=== PATIENT | male | born 1955 | race American Indian/Alaskan Native ===

== ENCOUNTER 2016-09-21 22:48 | Inpatient (IN) | payer MEDICARE ==
[2016-09-22 00:05] LABS: Basophils % (Auto) 0.3 % (0.0-1.8); Hemoglobin 11.6 gm/dl (11.8-15.2); Mean Corpuscular HGB Conc 32 % (32-34); Mean Corpuscular Hemoglobin 30 pg (28-32); Mean Corpuscular Volume 92 fl (84-94); Platelet Count 302 K/mm3 (140-440); Red Blood Count 3.92 M/mm3 (3.65-5.03); White Blood Count 7.5 K/mm3 (4.5-11.0)
[2016-09-22 00:25] LABS: BUN/Creatinine Ratio 8.85; Blood Urea Nitrogen 54 mg/dL (9-20); Calcium 8.7 mg/dL (8.4-10.2); Carbon Dioxide 26 mmol/L (22-30); Chloride 92.4 mmol/L (98-107); Glucose 185 mg/dL (75-100); Potassium 3.8 mmol/L (3.6-5.0); Sodium 133 mmol/L (137-145)
[2016-09-22 00:28] LABS: Anion Gap 18 mmol/L
[2016-09-22] MEDS ORDERED: APRESOLINE IM ONE (09:10)
--- NOTE | 2016-09-22 09:14 | Emergency Department Report ---
HPI - General Chief Complaint: Chest Pain Time Seen by Provider: 09/22/16 09:03 - HPI HPI: This is a 61-year-old male who presents to the emergency department via EMS from home with complaint of a headache and some right shoulder pain/ chest pain. Patient says that 2 days ago he started having some cold-like symptoms with a sore throat and some congestion but that seemed to improve. Wednesday, yesterday, he went to his normal dialysis session but had to stop early secondary to a bad headache. It is a frontal headache and was 10 out of 10 in intensity at that time but it does come down to 3 out of 10 without any intervention. He says that he has a history of these headaches and has seen a neurologist in the past but "they could not find anything." He also been having some intermittent pain that starts in the right arm and shoulder and then sometimes radiates into the chest. He does not have any chest pain currently. He denies any history of ME, CVA, PE/DVT. He has a history of end- stage renal disease on dialysis, CHF, insulin dependent diabetes and hypertension. His primary care doctor is 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 No recent travel or sick contacts at home. ED Past Medical Hx - Past Medical History Hx Hypertension: Yes Hx Congestive Heart Failure: Yes Hx Diabetes: Yes Hx Deep Vein Thrombosis: Yes Hx Renal Disease: Yes (ckd) Hx Asthma: No Hx COPD: No Hx HIV: No - Surgical History Past Surgical History?: Yes Additional Surgical History: Cataract surgery - Social History Smoking Status: Never Smoker Substance Use Type: None - Medications Home Medications: Home Medications Medication Instructions Recorded Confirmed Last Taken Type Hydralazine HCl [hydrALAZINE] 100 mg PO TID 09/10/13 09/22/16 12/16/13 History Metoprolol [Lopressor TAB] 50 mg PO BID #60 mg 09/13/13 09/22/16 12/16/13 Rx Aspirin [Aspirin BABY CHEW TAB] 81 mg PO QDAY #30 tab.chew 11/06/13 09/22/1605/22 Rx Lisinopril [Zestril TAB] 40 mg PO QDAY #30 11/06/13 09/22/16 12/16/13 Rx Methyldopa [Aldomet] 500 mg PO Q12HR #60 tablet 11/06/13 09/22/16 12/16/13 Rx NIFEdipine XL [Procardia Xl] 90 mg PO QDAY #30 tablet 11/06/13 09/22/16 Rx glipiZIDE [Glucotrol] 5 mg PO DAILY 12/16/13 09/22/16 12/16/13 History Furosemide [Lasix] 40 mg PO DAILY #30 tablet 12/22/13 09/22/16 Unknown Rx ED Review of Systems ROS: Stated complaint: CHEST PAIN, HEADACHE Other details as noted in HPI Comment: All other systems reviewed and negative Constitutional: denies: chills, fever Eyes: denies: eye pain, eye discharge, vision change ENT: throat pain, congestion. denies: ear pain Respiratory: denies: cough, shortness of breath, wheezing Cardiovascular: chest pain. denies: palpitations Gastrointestinal: denies: abdominal pain, nausea, diarrhea Genitourinary: denies: urgency, dysuria Musculoskeletal: arthralgia. denies: back pain Skin: denies: rash, lesions Neurological: denies: headache, weakness, paresthesias Physical Exam - Physical Exam Vital Signs: Vital Signs 09/21/16 23:22 Temperature 98.6 F Pulse Rate 61 Respiratory 16 Rate Blood Pressure 159/81 O2 Sat by Pulse 95 Oximetry Physical Exam: GENERAL: The patient is well-developed well-nourished. HEENT: Normocephalic. Atraumatic. Extraocular motions are intact. Patient has moist mucous membranes. Pupils equal reactive to light bilaterally. No nystagmus. NECK: Supple. Trachea is midline. CHEST/LUNGS: Clear to auscultation. There is no respiratory distress noted. HEART/CARDIOVASCULAR: Regular. There is no tachycardia. There is no gallop rub or murmur. ABDOMEN: Abdomen is soft, nontender. Patient has normal bowel sounds. There is no abdominal distention. SKIN: There is no rash. There is no edema. There is no diaphoresis. NEURO: The patient is awake, alert, and oriented. The patient is cooperative. The patient has no focal neurologic deficits. The patient has normal speech. Cranial nerves II through XII grossly intact. No pronator drift. No dysmetria. MUSCULOSKELETAL: There is no tenderness or deformity. There is no limitation range of motion. There is no evidence of acute injury. Muscle strength 5 out of 5 upper and lower extremities bilaterally. ED Course Vital Signs 09/21/16 23:22 Temperature 98.6 F Pulse Rate 61 Respiratory 16 Rate Blood Pressure 159/81 O2 Sat by Pulse 95 Oximetry ED Medical Decision Making - Lab Data Result diagrams: 09/21/16 23:40 09/21/16 23:40 - EKG Data -: EKG Interpreted by Me EKG shows normal: sinus rhythm, axis (LAD), intervals, QRS complexes (left anterior fascicular block, LVH), ST-T waves (nonspecific ST-T changes) Rate: normal - EKG Data When compared to previous EKG there are: no significant change Interpretation: unchanged when compared t (04/02/16) - Radiology Data Radiology results: image reviewed interpreted by me: Chest x-ray did not show any acute process. Heart is normal shape and size. No effusions. No pneumothorax. No signs of pneumonia seen. - Medical Decision Making 61-year-old male presents to the emergency department with complaint of right- sided chest pain and a headache since dialysis yesterday. The headache is greatly improved without any intervention the patient says he has previous histories of CT scans and MRIs of the brain and has seen neurology for the same kind of headache. For this reason no CT of the brain was done at this time. EKG was done that did not show any signs of ST elevation ME. Patient has negative troponins 2 this far. He has chronic kidney disease and therefore has some renal insufficiency on labs but there is no hyperkalemia. Patient continues to have hypertensive issues however, despite 20 mg of hydralazine thus far. He also has intermittent right-sided chest pain. He has not had a stress test previously. For these reasons patient will be admitted to the hospital for further evaluations and has been accepted for admission by the hospitalist, Dr. Maria. - Differential Diagnosis ME, costochondritis, tension headache, brain bleed Critical Care Time: No Critical care attestation.: If time is entered above; I have spent that time in minutes in the direct care of this critically ill patient, excluding procedure time. ED Disposition Clinical Impression: Anemia in chronic kidney disease (CKD), Hyperglycemia, Hypertensive urgency Chest pain Qualifiers: Chest pain type: unspecified Qualified Code(s): R07.9 - Chest pain, unspecified Chronic kidney disease (CKD), hemodialysis preferred modality Qualifiers: Chronic kidney disease stage: stage 5 Qualified Code(s): N18.5 - Chronic kidney disease, stage 5; Z99.2 - Dependence on renal dialysis Disposition: OP ADMITTED IP TO THIS HOSP Is pt being admited?: Yes Does the pt Need Aspirin: Yes Condition: Stable Instructions: Chest Pain (ED) Referrals: PRIMARY CARE, [Primary Care Provider] - 3-5 Days Time of Disposition: 11:40
--- NOTE | 2016-09-22 09:32 | XRay Report ---
Single view chest: Compared to 04/02/16. History: Chest pain. Findings: Cardiomegaly the trachea is midline. No consolidation, pneumothorax or pleural effusion. Impression: No acute cardiopulmonary findings.
[2016-09-22] MEDS ORDERED: APRESOLINE IV ONE ×2 (09:45)
[2016-09-22] MEDS ORDERED: BABY ASPIRIN PO ONE (11:40)
--- NOTE | 2016-09-22 12:18 | Admit Criteria Form ---
Admission Criteria Documentation: HYPERTENSION Clinical Indications for Admission to Inpatient Care ( Place "X" for any and all applicable criteria): Admission is indicated for ANY ONE of the following(1)(2)(3)(4): [ ]I. Hypertensive emergency, with evidence of acute and progressing target organ disease as indicated by ANY ONE of the following: [ ]a) Hypertensive encephalopathy (eg, confusion, altered mental status) [ ]b) Cerebral infarction [ ]c) Intracranial hemorrhage [ ]d) Myocardial ischemia or infarction [ ]e) Pulmonary edema [ ]f) Aortic dissection [ ]g) Seizure [ ]h) Acute renal insufficiency [ ]i) Papilledema [ ]j) Microangiopathic hemolytic anemia [ ]II. Adrenergic crisis (eg, severe hypertension due to pheochromocytoma crisis, cocaine or amphetamine intoxication, or clonidine withdrawal) [X ]III. Severe hypertension (SBP greater than 180 mmHg or DBP greater than 110 mmHg or greater than the 95th percentile for age, gender, and height in pediatric patients) that cannot be controlled (eg, to SBP less than 160 mmHg and DBP less than 100 mmHg in adults) by treatment with oral medication in emergency department or observation care Extended stay beyond goal length of stay may be needed for(11)(12)(13): [ ]a) Persistent hypertensive encephalopathy [ ]b) Continuation of pulmonary edema [ ]c) Recurring or persistent severe hypertension [ ]d) Target organ damage (eg, angina, stroke, aortic dissection) [ ]e) Associated renal insufficiency The original [employer] content created by [employer] has been revised. The portions of the content which have been revised are identified through the use of italic text or in bold, and [facility] has neither reviewed nor approved the modified material. All other unmodified content is copyright [employer] includes the [facility]. Please see references footnoted in the original [employer] the [facility] edition 2016 Admission Criteria Met: Yes
[2016-09-22] MEDS ORDERED: ZESTRIL PO SCH (14:00)
[2016-09-22] MEDS ORDERED: LASIX PO SCH (14:00)
[2016-09-22] MEDS ORDERED: HEPARIN SUB-Q SCH (14:00)
[2016-09-22] MEDS ORDERED: PROCARDIA XL PO SCH (14:00)
[2016-09-22] MEDS ORDERED: GLUCOTROL PO SCH (14:00)
[2016-09-22] MEDS ORDERED: APRESOLINE PO SCH (14:00)
[2016-09-22] MEDS ORDERED: ZESTRIL ONE (14:17)
[2016-09-22] MEDS ORDERED: LASIX ONE (14:17)
[2016-09-22 17:59] VITALS: BP 177/82
[2016-09-22] MEDS ORDERED: LOPRESSOR PO SCH ×2 (22:00)
== END 2016-09-22 17:59 | disposition left against medical advice (07) | DRG 313 ==
LOC: ED 22:48 → 4A 09-22 11:40
PROVIDERS: ADMIT Internal Medicine; ATTEND Internal Medicine
DX: R07.9 Chest pain, unspecified (principal); I13.2 Hypertensive heart and chronic kidney disease with heart failure and with stage 5 chronic kidney disease, or end stage renal disease; N18.5 Chronic kidney disease, stage 5; I16.0 Hypertensive urgency; R51 Headache; I50.9 Heart failure, unspecified; D63.1 Anemia in chronic kidney disease; R73.9 Hyperglycemia, unspecified; Z99.2 Dependence on renal dialysis; Z88.0 Allergy status to penicillin; Z86.718 Personal history of other venous thrombosis and embolism; Z98.49 Cataract extraction status, unspecified eye; Z53.21 Procedure and treatment not carried out due to patient leaving prior to being seen by health care provider
CPT/HCPCS: 36415; 71010; 80048; 84484; 85025; 93005; 93010; 96372; 96374; 96376; J0360; J1644

== ENCOUNTER 2017-06-23 09:57 | Inpatient (IN) | payer MEDICARE ==
[2017-06-23 11:26] LABS: Basophils % (Auto) 0.5 % (0.0-1.8); Eosinophils % (Auto) 3.5 % (0.0-4.3); Hematocrit 35.6 % (35.5-45.6); Hemoglobin 11.4 gm/dl (11.8-15.2); Mean Corpuscular HGB Conc 32 % (32-34); Mean Corpuscular Hemoglobin 29 pg (28-32); Mean Corpuscular Volume 91 fl (84-94); Platelet Count 182 K/mm3 (140-440); Red Cell Distribution Width 16.5 % (13.2-15.2); White Blood Count 8.4 K/mm3 (4.5-11.0)
[2017-06-23 11:43] LABS: Calcium 8.6 mg/dL (8.4-10.2); Chloride 99.5 mmol/L (98-107); Potassium 3.5 mmol/L (3.6-5.0)
--- NOTE | 2017-06-23 12:12 | Emergency Department Report ---
ED Headache HPI - General Chief Complaint: Headache Stated Complaint: N/V,HEADACHE Time Seen by Provider: 06/23/17 12:08 - History of Present Illness Initial Comments: The patient complains of a diffuse and moderately severe headache associated with nausea that occurred while on dialysis. He states he's had similar such headaches before. Apparently he's been admitted to [facility] on more than one occasion with headaches and uncontrolled hypertension. He states he thinks his last CT was 4 months ago. He also states he thinks he had an MRI in the past. At this time he denies neck stiffness or soreness. He denies any focal neurological change. He denies fever or chills. Timing/Duration: 1 hour Quality: moderate Head Injury Location: other (is diffuse) Recent Head Trauma: occasional headaches Associated Symptoms: confusion Allergies/Adverse Reactions: Allergies Penicillins Allergy (Verified 10/26/13 10:13) Unknown unknown childhood allergy Home Medications: Ambulatory Orders Hydralazine HCl [hydrALAZINE] 100 mg PO TID 09/10/13 Metoprolol [Lopressor TAB] 50 mg PO BID #60 mg 09/13/13 Aspirin [Aspirin BABY CHEW TAB] 81 mg PO QDAY #30 tab.chew 11/06/13 Lisinopril [Zestril TAB] 40 mg PO QDAY #30 11/06/13 Methyldopa [Aldomet] 500 mg PO Q12HR #60 tablet 11/06/13 NIFEdipine XL [Procardia Xl] 90 mg PO QDAY #30 tablet 11/06/13 glipiZIDE [Glucotrol] 5 mg PO DAILY 12/16/13 Furosemide [Lasix] 40 mg PO DAILY #30 tablet 12/22/13 ED Review of Systems ROS: Stated complaint: N/V,HEADACHE Other details as noted in HPI Constitutional: denies: chills, fever Eyes: denies: eye pain, eye discharge, vision change ENT: denies: ear pain, throat pain Respiratory: denies: cough, shortness of breath, wheezing Cardiovascular: denies: chest pain, palpitations Endocrine: no symptoms reported Gastrointestinal: denies: abdominal pain, nausea, diarrhea Genitourinary: denies: urgency, dysuria Musculoskeletal: denies: back pain, joint swelling, arthralgia Skin: denies: rash, lesions Neurological: headache. denies: weakness, paresthesias Psychiatric: denies: anxiety, depression Hematological/Lymphatic: denies: easy bleeding, easy bruising ED Past Medical Hx - Past Medical History Previous Medical History?: Yes Hx Hypertension: Yes Hx Congestive Heart Failure: Yes Hx Diabetes: Yes Hx Deep Vein Thrombosis: Yes Hx Renal Disease: Yes (ckd) Hx Asthma: No Hx COPD: No Hx HIV: No - Surgical History Past Surgical History?: Yes Additional Surgical History: Cataract surgery - Social History Smoking Status: Never Smoker Substance Use Type: None - Medications Home Medications: Home Medications Medication Instructions Recorded Confirmed Last Taken Type Hydralazine HCl [hydrALAZINE] 100 mg PO TID 09/10/13 09/22/16 12/16/13 History Metoprolol [Lopressor TAB] 50 mg PO BID #60 mg 09/13/13 09/22/16 12/16/13 Rx Aspirin [Aspirin BABY CHEW TAB] 81 mg PO QDAY #30 tab.chew 11/06/13 09/22/1605/22 Rx Lisinopril [Zestril TAB] 40 mg PO QDAY #30 11/06/13 09/22/16 12/16/13 Rx Methyldopa [Aldomet] 500 mg PO Q12HR #60 tablet 11/06/13 09/22/16 12/16/13 Rx NIFEdipine XL [Procardia Xl] 90 mg PO QDAY #30 tablet 11/06/13 09/22/16 Rx glipiZIDE [Glucotrol] 5 mg PO DAILY 12/16/13 09/22/16 12/16/13 History Furosemide [Lasix] 40 mg PO DAILY #30 tablet 12/22/13 09/22/16 Unknown Rx ED Physical Exam - General Limitations: No Limitations General appearance: alert, other (patient is uncomfortable and holding his head) - Head Head exam: Present: atraumatic, normocephalic - Eye Eye exam: Present: normal appearance, PERRL, EOMI. Absent: scleral icterus Pupils: Present: other (bilateral horizontal nystagmus) - ENT ENT exam: Present: normal exam, mucous membranes moist - Neck Neck exam: Present: normal inspection. Absent: tenderness, meningismus - Respiratory Respiratory exam: Present: normal lung sounds bilaterally. Absent: respiratory distress - Cardiovascular Cardiovascular Exam: Present: regular rate, normal rhythm. Absent: systolic murmur, diastolic murmur, rubs, gallop - GI/Abdominal GI/Abdominal exam: Present: soft, normal bowel sounds. Absent: distended, tenderness, guarding, rebound, rigid - Rectal Rectal exam: Present: deferred - Extremities Exam Extremities exam: Present: normal inspection - Back Exam Back exam: Present: normal inspection - Neurological Exam Neurological exam: Present: alert, oriented X3, CN II-XII intact. Absent: motor sensory deficit - Psychiatric Psychiatric exam: Present: normal affect, normal mood - Skin Skin exam: Present: warm, dry, intact, other (albino I believe). Absent: rash ED Course Vital Signs 06/23/17 06/23/17 06/23/17 10:14 10:16 10:30 Temperature Pulse Rate 56 L 57 L Respiratory 11 L 19 Rate Blood Pressure 210/93 210/93 O2 Sat by Pulse 94 95 95 Oximetry 06/23/17 06/23/17 06/23/17 10:36 10:46 11:00 Temperature 97.8 F Pulse Rate 56 L 58 L 56 L Respiratory 14 13 12 Rate Blood Pressure 210/93 210/93 230/103 O2 Sat by Pulse 94 95 96 Oximetry 06/23/17 06/23/17 06/23/17 11:05 11:16 11:30 Temperature Pulse Rate 60 59 L Respiratory 18 11 L 12 Rate Blood Pressure 210/93 210/93 O2 Sat by Pulse 96 96 Oximetry 06/23/17 06/23/17 06/23/17 11:46 12:00 12:16 Temperature Pulse Rate 61 63 67 Respiratory 13 13 16 Rate Blood Pressure 210/93 243/114 243/114 O2 Sat by Pulse 95 96 94 Oximetry 06/23/17 06/23/17 06/23/17 12:30 13:04 13:07 Temperature Pulse Rate 64 86 Respiratory 13 Rate Blood Pressure 226/108 230/105 230/105 O2 Sat by Pulse 95 Oximetry 06/23/17 06/23/17 06/23/17 13:08 13:31 14:00 Temperature Pulse Rate Respiratory 18 Rate Blood Pressure 167/81 166/82 O2 Sat by Pulse Oximetry 06/23/17 06/23/17 06/23/17 14:17 14:30 14:46 Temperature Pulse Rate 61 65 58 L Respiratory 11 L 13 12 Rate Blood Pressure 166/82 175/85 167/81 O2 Sat by Pulse 94 93 93 Oximetry 06/23/17 06/23/17 06/23/17 15:00 15:16 15:30 Temperature Pulse Rate 59 L 57 L 57 L Respiratory 13 12 14 Rate Blood Pressure 176/84 176/84 185/83 O2 Sat by Pulse 93 94 94 Oximetry - Reevaluation(s) Reevaluation #1: Patient was given hydralazine and analgesia. He was admitted by Dr. Maria to the hospitalist service for further care and evaluation. 06/23/17 15:44 ED Medical Decision Making - Lab Data Result diagrams: 06/23/17 11:00 06/23/17 11:00 Laboratory Results - last 24 hr 06/23/17 06/23/17 06/23/17 10:15 11:00 11:00 WBC 8.4 RBC 3.90 Hgb 11.4 L Hct 35.6 MCV 91 MCH 29 MCHC 32 RDW 16.5 H Plt Count 182 Lymph % (Auto) 13.1 L [place] % (Auto) 10.0 H Eos % (Auto) 3.5 Baso % (Auto) 0.5 Lymph # 1.1 L [place] # 0.8 Eos # 0.3 Baso # 0.0 Seg Neutrophils % 72.9 H Seg Neutrophils # 6.1 Potassium 3.5 L Chloride 99.5 Carbon Dioxide 25 Anion Gap 18 BUN 25 H Creatinine 5.4 H Estimated GFR 13 BUN/Creatinine Ratio 5 Glucose 72 L POC Glucose 72 Calcium 8.6 139 - EKG Data -: EKG Interpreted by Me EKG shows normal: sinus rhythm Rate: bradycardia - EKG Data Interpretation: other (LVH with associated changes and left anterior fascicular block) - Radiology Data Radiology results: report reviewed interpreted by me: X-rays CT that showed no acute process Critical care attestation.: If time is entered above; I have spent that time in minutes in the direct care of this critically ill patient, excluding procedure time. ED Disposition Clinical Impression: Accelerated hypertension, Sinus bradycardia, Left anterior fascicular block Cephalalgia Qualifiers: Headache type: unspecified Headache chronicity pattern: acute headache Intractability: not intractable Qualified Code(s): R51 - Headache Type 2 diabetes mellitus Qualifiers: Diabetes mellitus complication status: with kidney complications Diabetes mellitus complication detail: with chronic kidney disease Diabetes mellitus fci insulin use: without fci use Chronic kidney disease stage: on chronic dialysis Qualified Code(s): E11.22 - Type 2 diabetes mellitus with diabetic chronic kidney disease; N18.6 - End stage renal disease; N18.6 - End stage renal disease; N18.6 - End stage renal disease; N18.6 - End stage renal disease; Z99.2 - Dependence on renal dialysis; Z99.2 - Dependence on renal dialysis; Z99.2 - Dependence on renal dialysis; Z99.2 - Dependence on renal dialysis Disposition: OP ADMIT IP TO THIS HOSP Is pt being admited?: Yes Does the pt Need Aspirin: Yes Condition: Stable Instructions: Hypertension (ED), Diabetes Mellitus Type 2 in Adults (ED) Referrals: PRIMARY CAREMD [Primary Care Provider] - 3-5 Days Time of Disposition: 15:45
[2017-06-23] MEDS ORDERED: DILAUDID IV ONE (12:27)
[2017-06-23] MEDS ORDERED: ZOFRAN IV ONE (12:27)
[2017-06-23] MEDS ORDERED: APRESOLINE IV ONE (12:27)
[2017-06-23 12:28] LABS: Bilirubin,Urine NEG (Negative); Blood,Urine NEG (Negative); Ketones,Urine NEG (Negative); Leukocyte Esterase,Urine NEG (Negative); Mucus,Urine FEW /HPF; Nitrite,Urine NEG (Negative); Urobilinogen,Urine < 2.0 mg/dL (<2.0)
--- NOTE | 2017-06-23 12:41 | XRay Report ---
PORTABLE CHEST INDICATION: Hypertension. COMPARISON: 09/22/2016 FINDINGS: Portable, frontal chest radiograph demonstrated stable cardiomediastinal silhouette and slight cardiomegaly. Increased perihilar haziness partially obscures the right hilum with slight bronchovascular prominence centrally as well. Minimal fluid or thickening along the right minor fissure again noted. New left distal subclavian/axillary stent. EKG leads. Stable bones. CONCLUSION: Slight central/perihilar congestion possible without overt CHF in this patient with new left subclavian stent as well, as described. Please correlate. Thank you for the opportunity to participate in this patient's care.
--- NOTE | 2017-06-23 13:00 | Cat Scan Report ---
Cranial CT without contrast. History: Headache. Findings: There is no evidence of acute hemorrhage or infarct. The posterior fossa is normal. The ventricles are normal in size and contour. There are no masses or extra-axial collections. There are fairly symmetrical hypodensities in the periventricular white matter bilaterally. The calvarium is intact. Impression: No acute findings. Chronic periventricular microangiopathy.
[2017-06-23 14:10] LABS: INR 0.95 (0.87-1.13)
[2017-06-23 14:11] LABS: Partial Thromboplastin Time 33.7 Sec. (24.2-36.6)
[2017-06-23 14:19] LABS: C-Reactive Protein 0.5 mg/dL (0.00-1.30); Phosphorous 3.4 mg/dL (2.5-4.5)
[2017-06-23 14:20] LABS: Alanine Aminotransferase 19 units/L (7-56); Albumin 3.9 g/dL (3.9-5); Albumin/Globulin Ratio 1.1 %; Alkaline Phosphatase 81 units/L (35-129); Total Protein 7.5 g/dL (6.3-8.2)
[2017-06-23 14:22] LABS: Bilirubin,Direct < 0.2 mg/dL (0-0.2); Bilirubin,Indirect 0.2 mg/dL
[2017-06-23] MEDS ORDERED: BABY ASPIRIN PO ONE (15:46)
[2017-06-23] MEDS ORDERED: NORCO 5/325 PO ONE (17:11)
[2017-06-23] MEDS ORDERED: NORCO 5/325 ONE (17:15)
--- NOTE | 2017-06-23 23:49 | History and Physical Report ---
History of Present Illness Date of examination: 06/23/17 Date of admission: 06/23/17 15:46 Chief complaint: CC Severe H/A History of present illness: History of Present Illness The patient complains of a diffuse and moderately severe headache associated with nausea that occurred while on dialysis. He states he's had similar such headaches before. Apparently he's been admitted to [facility] on more than one occasion with headaches and uncontrolled hypertension. He states he thinks his last CT was 4 months ago. He also states he thinks he had an MRI in the past. At this time he denies neck stiffness or soreness. He denies any focal neurological change. He denies fever or chills. In ED his BP was very high 234/114 Past Medical History Previous Medical History?: Yes Hx Hypertension: Yes Hx Congestive Heart Failure: Yes Hx Diabetes: Yes Hx Deep Vein Thrombosis: Yes Hx Renal Disease: Yes (ckd) - Surgical History Past Surgical History?: Yes Additional Surgical History: Cataract surgery - Social History Smoking Status: Never Smoker Substance Use Type: None Fam Hx Htn - Medications Home Medications: Home Medications Medication Instructions Recorded Confirmed Last Taken Type Hydralazine HCl [hydrALAZINE] 100 mg PO TID 09/10/13 09/22/16 12/16/13 History Metoprolol [Lopressor TAB] 50 mg PO BID #60 mg 09/13/13 09/22/16 12/16/13 Rx Aspirin [Aspirin BABY CHEW TAB] 81 mg PO QDAY #30 tab.chew 11/06/13 09/22/1605/22 Rx Lisinopril [Zestril TAB] 40 mg PO QDAY #30 11/06/13 09/22/16 12/16/13 Rx Methyldopa [Aldomet] 500 mg PO Q12HR #60 tablet 11/06/13 09/22/16 12/16/13 Rx NIFEdipine XL [Procardia Xl] 90 mg PO QDAY #30 tablet 11/06/13 09/22/16 Rx glipiZIDE [Glucotrol] 5 mg PO DAILY 12/16/13 09/22/16 12/16/13 History Furosemide [Lasix] 40 mg PO DAILY #30 tablet 12/22/13 09/22/16 Unknown Rx Review of Systems Stated complaint: N/V,HEADACHE Other details as noted in HPI Constitutional: denies: chills, fever Eyes: denies: eye pain, eye discharge, vision change ENT: denies: ear pain, throat pain Respiratory: denies: cough, shortness of breath, wheezing Cardiovascular: denies: chest pain, palpitations Endocrine: no symptoms reported Gastrointestinal: denies: abdominal pain, nausea, diarrhea Genitourinary: denies: urgency, dysuria Musculoskeletal: denies: back pain, joint swelling, arthralgia Skin: denies: rash, lesions Neurological: headache. denies: weakness, paresthesias Psychiatric: denies: anxiety, depression Hematological/Lymphatic: denies: easy bleeding, easy bruising Medications and Allergies Allergies Allergy/AdvReac Type Severity Reaction Status Date / Time Penicillins Allergy Unknown Verified 10/26/13 10:13 Home Medications Medication Instructions Recorded Confirmed Last Taken Type Hydralazine HCl [hydrALAZINE] 100 mg PO TID 09/10/13 06/23/17 06/22/17 History Lisinopril [Zestril TAB] 40 mg PO QDAY #30 11/06/13 06/23/17 06/22/17 Rx Methyldopa [Aldomet] 500 mg PO Q12HR #60 tablet 11/06/13 06/23/17 06/22/17 Rx NIFEdipine XL [Procardia Xl] 90 mg PO QDAY #30 tablet 11/06/13 06/23/17 Rx glipiZIDE [Glucotrol] 5 mg PO DAILY 12/16/13 06/23/17 06/22/17 History Cholecalciferol (Vitamin D3) 2,000 unit PO QDAY 06/23/17 06/23/17 06/22/17 History [Vitamin D3 2,000 unit] Cinacalcet [Sensipar] 30 mg PO QDAY 06/23/17 06/23/17 06/22/17 History Esomeprazole Magnesium [NexIUM] 40 mg PO QDAY 06/23/17 06/23/17 06/22/17 History Furosemide [Lasix] 80 mg PO DAILY 06/23/17 06/23/17 06/22/17 History Metoprolol [Lopressor] 100 mg PO BID 06/23/17 06/23/17 06/22/17 History Minoxidil [Loniten] 2.5 mg PO BID 06/23/17 06/23/17 06/22/17 History Sevelamer Carbonate [Renvela] 2,400 mg PO TIDWM 06/23/17 06/23/17 06/22/17 History Vit B Comp No.3/Folic/C/Biotin 1 each PO DAILY 06/23/17 06/23/17 06/22/17 History [Jayleen-Amarilys Rx Tablet] traMADol [Ultram] 50 mg PO BID 06/23/17 06/23/17 06/22/17 History Active Meds: Active Medications Influenza Virus Vaccine Quadrival (Fluarix Quad [id number](36 Mos+) 0.5 ml IM .ONCE ONE Stop: 06/24/17 12:01 Exam - Constitutional Vitals: Temp Pulse Resp BP Pulse Ox 99.4 F 64 20 146/71 96 06/23/17 20:17 06/23/17 20:17 06/23/17 20:17 06/23/17 20:17 06/23/17 20:17 General appearance: Present: no acute distress, well-nourished - EENT Eyes: Present: PERRL ENT: hearing intact, clear oral mucosa - Neck Neck: Present: supple, normal ROM - Respiratory Respiratory effort: normal Respiratory: bilateral: CTA - Cardiovascular Heart Sounds: Present: S1 & S2. Absent: rub, click - Extremities Extremities: pulses symmetrical, No edema Peripheral Pulses: within normal limits - Abdominal General gastrointestinal: Present: soft, non-tender, non-distended, normal bowel sounds Male genitourinary: Present: normal - Integumentary Integumentary: Present: clear, warm, dry - Musculoskeletal Musculoskeletal: gait normal, strength equal bilaterally - Psychiatric Psychiatric: appropriate mood/affect, intact judgment & insight - Neurologic Neurologic: CNII-XII intact, moves all extremities Results - Labs CBC & Chem 7: 06/24/17 06:54 06/24/17 04:49 Labs: Laboratory Last Values WBC 8.4 K/mm3 (4.5-11.0) 06/23/17 11:00 RBC 3.90 M/mm3 (3.65-5.03) 06/23/17 11:00 Hgb 11.4 gm/dl (11.8-15.2) L 06/23/17 11:00 Hct 35.6 % (35.5-45.6) 06/23/17 11:00 MCV 91 fl (84-94) 06/23/17 11:00 MCH 29 pg (28-32) 06/23/17 11:00 MCHC 32 % (32-34) 06/23/17 11:00 RDW 16.5 % (13.2-15.2) H 06/23/17 11:00 Plt Count 182 K/mm3 (140-440) 06/23/17 11:00 Lymph % (Auto) 13.1 % (13.4-35.0) L 06/23/17 11:00 [place] % (Auto) 10.0 % (0.0-7.3) H 06/23/17 11:00 Eos % (Auto) 3.5 % (0.0-4.3) 06/23/17 11:00 Baso % (Auto) 0.5 % (0.0-1.8) 06/23/17 11:00 Lymph # 1.1 K/mm3 (1.2-5.4) L 06/23/17 11:00 [place] # 0.8 K/mm3 (0.0-0.8) 06/23/17 11:00 Eos # 0.3 K/mm3 (0.0-0.4) 06/23/17 11:00 Baso # 0.0 K/mm3 (0.0-0.1) 06/23/17 11:00 Seg Neutrophils % 72.9 % (40.0-70.0) H 06/23/17 11:00 Seg Neutrophils # 6.1 K/mm3 (1.8-7.7) 06/23/17 11:00 ESR 11 mm/Hr (0-20) 06/23/17 13:33 PT 13.2 Sec. (12.2-14.9) 06/23/17 13:33 INR 0.95 (0.87-1.13) 06/23/17 13:33 APTT 33.7 Sec. (24.2-36.6) 06/23/17 13:33 Potassium 3.5 mmol/L (3.6-5.0) L 06/23/17 11:00 Chloride 99.5 mmol/L (98-107) 06/23/17 11:00 Carbon Dioxide 25 mmol/L (22-30) 06/23/17 11:00 Anion Gap 18 mmol/L 06/23/17 11:00 BUN 25 mg/dL (9-20) H 06/23/17 11:00 Creatinine 5.4 mg/dL (0.8-1.5) H 06/23/17 11:00 Estimated GFR 13 ml/min 06/23/17 11:00 BUN/Creatinine Ratio 5 % 06/23/17 11:00 Glucose 72 mg/dL (75-100) L 06/23/17 11:00 POC Glucose 186 (70-105) H 06/23/17 21:14 Calcium 8.6 mg/dL (8.4-10.2) 06/23/17 11:00 Phosphorus 3.40 mg/dL (2.5-4.5) 06/23/17 13:33 Total Bilirubin 0.40 mg/dL (0.1-1.2) 06/23/17 13:33 Direct Bilirubin < 0.2 mg/dL (0-0.2) 06/23/17 13:33 Indirect Bilirubin 0.2 mg/dL 06/23/17 13:33 AST 17 units/L (5-40) 06/23/17 13:33 ALT 19 units/L (7-56) 06/23/17 13:33 Alkaline Phosphatase 81 units/L (35-129) 06/23/17 13:33 C-Reactive Protein 0.50 mg/dL (0.00-1.30) 06/23/17 13:33 NT-Pro-B Natriuret Pep > 31068 pg/mL (0-900) H 06/23/17 13:33 Total Protein 7.5 g/dL (6.3-8.2) 06/23/17 13:33 Albumin 3.9 g/dL (3.9-5) 06/23/17 13:33 Albumin/Globulin Ratio 1.1 % 06/23/17 13:33 Urine Color Yellow (Yellow) 06/23/17 12:19 Urine Turbidity Clear (Clear) 06/23/17 12:19 Urine pH 7.0 (5.0-7.0) 06/23/17 12:19 Ur Specific [place] 1.011 (1.003-1.030) 06/23/17 12:19 Urine Protein 100 mg/dl mg/dL (Negative) 06/23/17 12:19 Urine Glucose (UA) 50 mg/dL (Negative) 06/23/17 12:19 Urine Ketones Neg mg/dL (Negative) 06/23/17 12:19 Urine Blood Neg (Negative) 06/23/17 12:19 Urine Nitrite Neg (Negative) 06/23/17 12:19 Urine Bilirubin Neg (Negative) 06/23/17 12:19 Urine Urobilinogen < 2.0 mg/dL (<2.0) 06/23/17 12:19 Ur Leukocyte Esterase Neg (Negative) 06/23/17 12:19 Urine WBC (Auto) 1.0 /HPF (0.0-6.0) 06/23/17 12:19 Urine RBC (Auto) 3.0 /HPF (0.0-6.0) 06/23/17 12:19 Urine Mucus Few /HPF 06/23/17 12:19 - Imaging and Cardiology EKG: report reviewed Assessment and Plan Advance Directives: Yes (Full code) VTE prophylaxis?: Chemical Plan of care discussed with patient/family: Yes - Patient Problems (1) Hypertensive emergency Current Visit: Yes Status: Acute Plan to address problem: Patients initial BP was 230/114 Hydralazine 10 mg iv q1 to 3 hr prn If necessary start cardene drip (2) ESRD on hemodialysis Current Visit: Yes Status: Chronic Plan to address problem: Nephrology consulted (3) T2DM (type 2 diabetes mellitus) Current Visit: Yes Status: Chronic Qualifiers: Diabetes mellitus complication status: with kidney complications Chronic kidney disease stage: on chronic dialysis Plan to address problem: Cont oral hypoglycemics and coverage (4) DVT prophylaxis Current Visit: Yes Status: Acute Plan to address problem: On Heparin
[2017-06-23] MEDS ORDERED: TYLENOL PO PRN (23:53)
[2017-06-23] MEDS ORDERED: MILK OF MAGNESIA PO PRN (23:53)
[2017-06-23] MEDS ORDERED: DULCOLAX PR PRN (23:53)
[2017-06-23] MEDS ORDERED: AMBIEN PO PRN (23:53)
[2017-06-24] MEDS: ULTRAM PO SCH ×3 (00:30→22:18)
[2017-06-24] MEDS: LONITEN PO SCH ×3 (00:38→22:17)
[2017-06-24] MEDS: ALDOMET PO SCH ×3 (00:38→22:16)
[2017-06-24 06:46] LABS: Albumin 3.2 g/dL (3.9-5); Albumin/Globulin Ratio 1.1 %; Bilirubin,Total 0.3 mg/dL (0.1-1.2); Calcium 8.4 mg/dL (8.4-10.2); Chloride 99.9 mmol/L (98-107); Potassium 4.2 mmol/L (3.6-5.0); Total Protein 6.2 g/dL (6.3-8.2)
[2017-06-24 07:32] LABS: Basophils % (Auto) 0.5 % (0.0-1.8); Eosinophils % (Auto) 4.9 % (0.0-4.3); Hematocrit 36.3 % (35.5-45.6); Hemoglobin 11.5 gm/dl (11.8-15.2); Mean Corpuscular HGB Conc 32 % (32-34); Mean Corpuscular Hemoglobin 29 pg (28-32); Mean Corpuscular Volume 91 fl (84-94); Platelet Count 213 K/mm3 (140-440); Red Blood Count 3.98 M/mm3 (3.65-5.03); Red Cell Distribution Width 16.9 % (13.2-15.2); White Blood Count 7.7 K/mm3 (4.5-11.0)
[2017-06-24] MEDS: RENVELA PO SCH ×3 (08:57→17:28)
[2017-06-24] MEDS: GLUCOTROL PO SCH (08:58)
[2017-06-24] MEDS: APRESOLINE PO SCH ×3 (08:59→20:50)
[2017-06-24] MEDS: VITAMIN D3 PO SCH (09:01)
[2017-06-24] MEDS: LASIX PO SCH (09:02)
[2017-06-24] MEDS: ZESTRIL PO SCH (09:02)
[2017-06-24] MEDS: PROTONIX PO SCH (09:05)
[2017-06-24] MEDS: PROCARDIA XL PO SCH (09:05)
[2017-06-24] MEDS: SENSIPAR PO SCH (09:06)
[2017-06-24] MEDS: Renal Caps PO SCH (09:17)
[2017-06-24] MEDS ORDERED: NON-FORMULARY (Furosemide [Lasix] 80 MG) PO SCH (10:00)
[2017-06-24] MEDS ORDERED: NON-FORMULARY (Vit B Comp No.3/Folic/C/Biotin [Rena-Vite Rx Tablet] 1 EACH) PO SCH (10:00)
[2017-06-24] MEDS ORDERED: NON-FORMULARY (Esomeprazole Magnesium [Nexium] 40 MG) PO SCH (10:00)
[2017-06-24] MEDS ORDERED: NON-FORMULARY (Cholecalciferol (Vitamin D3) [Vitamin D3 2,000 Unit] 2,000 UNIT) PO SCH (10:00)
--- NOTE | 2017-06-24 11:04 | Consultation ---
History of Present Illness - Reason for Consult Consult date: 06/24/17 end stage renal disease - History of Present Illness patient with h/o ESRD on HD every MWF was sent from dialysis clinic yesterday due to worsening BP and CONTE after the treatment was started, in the ED CT head was negative for acute process but she was noted to have very high BP which improved with IV meds. her sx now improved but she remains to have CONTE with mild nausea. renal consult requested for ESRD and HD management Past History Past Medical History: diabetes, ESRD, hypertension Medications and Allergies Allergies Allergy/AdvReac Type Severity Reaction Status Date / Time Penicillins Allergy Unknown Verified 10/26/13 10:13 Home Medications Medication Instructions Recorded Confirmed Last Taken Type Hydralazine HCl [hydrALAZINE] 100 mg PO TID 09/10/13 06/23/17 06/22/17 History Lisinopril [Zestril TAB] 40 mg PO QDAY #30 11/06/13 06/23/17 06/22/17 Rx Methyldopa [Aldomet] 500 mg PO Q12HR #60 tablet 11/06/13 06/23/17 06/22/17 Rx NIFEdipine XL [Procardia Xl] 90 mg PO QDAY #30 tablet 11/06/13 06/23/17 Rx glipiZIDE [Glucotrol] 5 mg PO DAILY 12/16/13 06/23/17 06/22/17 History Cholecalciferol (Vitamin D3) 2,000 unit PO QDAY 06/23/17 06/23/17 06/22/17 History [Vitamin D3 2,000 unit] Cinacalcet [Sensipar] 30 mg PO QDAY 06/23/17 06/23/17 06/22/17 History Esomeprazole Magnesium [NexIUM] 40 mg PO QDAY 06/23/17 06/23/17 06/22/17 History Furosemide [Lasix] 80 mg PO DAILY 06/23/17 06/23/17 06/22/17 History Metoprolol [Lopressor] 100 mg PO BID 06/23/17 06/23/17 06/22/17 History Minoxidil [Loniten] 2.5 mg PO BID 06/23/17 06/23/17 06/22/17 History Sevelamer Carbonate [Renvela] 2,400 mg PO TIDWM 06/23/17 06/23/17 06/22/17 History Vit B Comp No.3/Folic/C/Biotin 1 each PO DAILY 06/23/17 06/23/17 06/22/17 History [Jayleen-Amarilys Rx Tablet] traMADol [Ultram] 50 mg PO BID 06/23/17 06/23/17 06/22/17 History Active Meds: Active Medications Acetaminophen (Tylenol) 650 mg PO Q4H PRN PRN Reason: Pain MILD(1-3)/Fever >100.5/CONTE Bisacodyl (Dulcolax) 10 mg [place] QDAY PRN PRN Reason: Constipation unrelieved by MOM Cholecalciferol (Vitamin D3) 2,000 unit PO QDAY [facility] Last Admin: 06/24/17 09:01 Dose: 2,000 unit Cinacalcet (Sensipar) 30 mg PO QDAY [facility] Last Admin: 06/24/17 09:06 Dose: 30 mg Furosemide (Lasix) 80 mg PO DAILY [facility] Last Admin: 06/24/17 09:02 Dose: 80 mg Glipizide (Glucotrol) 5 mg PO QDDIAB [facility] Last Admin: 06/24/17 08:58 Dose: 5 mg Hydralazine HCl (Apresoline) 100 mg PO TID [facility] Last Admin: 06/24/17 08:59 Dose: 100 mg Influenza Virus Vaccine Quadrival (Fluarix Quad [id number](36 Mos+) 0.5 ml IM .ONCE ONE Stop: 06/24/17 12:01 Insulin Aspart (Novolog) 0 units SUB-Q ACHS [facility] PRN Reason: Protocol Lisinopril (Zestril) 40 mg PO QDAY [facility] Last Admin: 06/24/17 09:02 Dose: 40 mg Magnesium Hydroxide (Milk Of Magnesia) 30 ml PO Q4H PRN PRN Reason: Constipation Methyldopa (Aldomet) 500 mg PO Q12HR [facility] Last Admin: 06/24/17 09:05 Dose: 500 mg Minoxidil (Loniten) 2.5 mg PO BID [facility] Last Admin: 06/24/17 09:01 Dose: 2.5 mg Multivit/Ca Carb/B Cmplx/FA/Prenat (Renal Caps) 1 cap PO QDAY [facility] Last Admin: 06/24/17 09:17 Dose: 1 cap Nifedipine (Procardia Xl) 90 mg PO QDAY [facility] Last Admin: 06/24/17 09:05 Dose: 90 mg Ondansetron HCl (Zofran) 4 mg IV Q8H PRN PRN Reason: N/V unrelieved by Reglan Oxycodone/Acetaminophen (Percocet 5/325) 1 tab PO Q6H PRN PRN Reason: Pain, Moderate (4-6) Pantoprazole Sodium (Protonix) 40 mg PO DAILY [facility] Last Admin: 06/24/17 09:05 Dose: 40 mg Sevelamer Carbonate (Renvela) 2,400 mg PO TIDWM [facility] Last Admin: 06/24/17 08:57 Dose: 2,400 mg Tramadol HCl (Ultram) 50 mg PO BID [facility] Last Admin: 06/24/17 09:02 Dose: 50 mg Zolpidem Tartrate (Ambien) 5 mg PO QHS PRN PRN Reason: Insomnia Review of Systems All systems: negative (Nausea, CONTE) Exam - Vital Signs Vital signs: Vital Signs Pulse Ox 94 06/23/17 10:14 - General Appearance General appearance: well-developed, well-nourished, appears stated age EENT: ATNC, PERRL, mucous membranes moist Neck: Present: neck supple Respiratory: Clear to Ascultation Heart: regular, S1S2 Gastrointestinal: Present: normoactive bowel sounds. Absent: tenderness, distended Integumentary: no rash, warm and dry Neurologic: no focal deficit, no asterixis, alert and oriented x3 Musculoskeletal: Present: other (trace pitting edema in BLE) Psychiatric: mood/affect appropriate, cooperative Results - Lab Results 06/24/17 06:54 06/24/17 04:49 Most recent lab results Calcium 8.4 mg/dL (8.4-10.2) 06/24/17 04:49 Phosphorus 3.40 mg/dL (2.5-4.5) 06/23/17 13:33 Assessment and Plan - Patient Problems (1) Accelerated hypertension Current Visit: Yes Status: Acute Plan to address problem: improved with restarting oral meds ultrafiltration with HD today (2) ESRD on hemodialysis Current Visit: Yes Status: Chronic Plan to address problem: HD today for clearance and volume removal will assess HD needs daily, may need another tx tomorrow renally dose meds strict I&O daily weight renal diet (3) T2DM (type 2 diabetes mellitus) Current Visit: Yes Status: Chronic Qualifiers: Diabetes mellitus complication status: with kidney complications Chronic kidney disease stage: on chronic dialysis Plan to address problem: per primary team (4) CHF (congestive heart failure) Current Visit: No Status: Acute Plan to address problem: pulmonary congestion on CXR ultrafiltration with HD (5) Secondary hyperparathyroidism (of renal origin) Current Visit: Yes Status: Acute Plan to address problem: cont renagel and sensipar will check phos in AM
[2017-06-24] MEDS ORDERED: Fluarix Quad 2017-2018(36 MOS+ IM ONE (12:00)
--- NOTE | 2017-06-24 12:08 | Consultation ---
History of Present Illness - Reason for Consult Consult date: 06/24/17 end stage renal disease - History of Present Illness Mr. Stewart is a 61yo with ESRD on HD MWF who presented to the ED with headache. During dialysis treatment yesterday, patient began experiencing nausea/ vomiting. His BP throughout treatment was 190-200s. Mr. Stewart has a hx of chronic headaches. Of note, patient is not compliant with dialysis treatments - he frequently misses treatments and terminates treatment early. Past History Past Medical History: diabetes, dialysis, ESRD, hypertension Medications and Allergies Allergies Allergy/AdvReac Type Severity Reaction Status Date / Time Penicillins Allergy Unknown Verified 10/26/13 10:13 Home Medications Medication Instructions Recorded Confirmed Last Taken Type Hydralazine HCl [hydrALAZINE] 100 mg PO TID 09/10/13 06/23/17 06/22/17 History Lisinopril [Zestril TAB] 40 mg PO QDAY #30 11/06/13 06/23/17 06/22/17 Rx Methyldopa [Aldomet] 500 mg PO Q12HR #60 tablet 11/06/13 06/23/17 06/22/17 Rx NIFEdipine XL [Procardia Xl] 90 mg PO QDAY #30 tablet 11/06/13 06/23/17 Rx glipiZIDE [Glucotrol] 5 mg PO DAILY 12/16/13 06/23/17 06/22/17 History Cholecalciferol (Vitamin D3) 2,000 unit PO QDAY 06/23/17 06/23/17 06/22/17 History [Vitamin D3 2,000 unit] Cinacalcet [Sensipar] 30 mg PO QDAY 06/23/17 06/23/17 06/22/17 History Esomeprazole Magnesium [NexIUM] 40 mg PO QDAY 06/23/17 06/23/17 06/22/17 History Furosemide [Lasix] 80 mg PO DAILY 06/23/17 06/23/17 06/22/17 History Metoprolol [Lopressor] 100 mg PO BID 06/23/17 06/23/17 06/22/17 History Minoxidil [Loniten] 2.5 mg PO BID 06/23/17 06/23/17 06/22/17 History Sevelamer Carbonate [Renvela] 2,400 mg PO TIDWM 06/23/17 06/23/17 06/22/17 History Vit B Comp No.3/Folic/C/Biotin 1 each PO DAILY 06/23/17 06/23/17 06/22/17 History [Jayleen-Amarilys Rx Tablet] traMADol [Ultram] 50 mg PO BID 06/23/17 06/23/17 06/22/17 History Active Meds: Active Medications Acetaminophen (Tylenol) 650 mg PO Q4H PRN PRN Reason: Pain MILD(1-3)/Fever >100.5/CONTE Bisacodyl (Dulcolax) 10 mg [place] QDAY PRN PRN Reason: Constipation unrelieved by MOM Cholecalciferol (Vitamin D3) 2,000 unit PO QDAY [facility] Last Admin: 06/24/17 09:01 Dose: 2,000 unit Cinacalcet (Sensipar) 30 mg PO QDAY [facility] Last Admin: 06/24/17 09:06 Dose: 30 mg Furosemide (Lasix) 80 mg PO DAILY [facility] Last Admin: 06/24/17 09:02 Dose: 80 mg Glipizide (Glucotrol) 5 mg PO QDDIAB [facility] Last Admin: 06/24/17 08:58 Dose: 5 mg Hydralazine HCl (Apresoline) 100 mg PO TID [facility] Last Admin: 06/24/17 08:59 Dose: 100 mg Insulin Aspart (Novolog) 0 units SUB-Q ACHS [facility] PRN Reason: Protocol Lisinopril (Zestril) 40 mg PO QDAY [facility] Last Admin: 06/24/17 09:02 Dose: 40 mg Magnesium Hydroxide (Milk Of Magnesia) 30 ml PO Q4H PRN PRN Reason: Constipation Methyldopa (Aldomet) 500 mg PO Q12HR [facility] Last Admin: 06/24/17 09:05 Dose: 500 mg Minoxidil (Loniten) 2.5 mg PO BID [facility] Last Admin: 06/24/17 09:01 Dose: 2.5 mg Multivit/Ca Carb/B Cmplx/FA/Prenat (Renal Caps) 1 cap PO QDAY [facility] Last Admin: 06/24/17 09:17 Dose: 1 cap Nifedipine (Procardia Xl) 90 mg PO QDAY [facility] Last Admin: 06/24/17 09:05 Dose: 90 mg Ondansetron HCl (Zofran) 4 mg IV Q8H PRN PRN Reason: N/V unrelieved by Vishal Oxycodone/Acetaminophen (Percocet 5/325) 1 tab PO Q6H PRN PRN Reason: Pain, Moderate (4-6) Pantoprazole Sodium (Protonix) 40 mg PO DAILY [facility] Last Admin: 06/24/17 09:05 Dose: 40 mg Sevelamer Carbonate (Renvela) 2,400 mg PO TIDWM [facility] Last Admin: 06/24/17 08:57 Dose: 2,400 mg Tramadol HCl (Ultram) 50 mg PO BID [facility] Last Admin: 06/24/17 09:02 Dose: 50 mg Zolpidem Tartrate (Ambien) 5 mg PO QHS PRN PRN Reason: Insomnia Review of Systems All systems: negative Cardiovascular: no shortness of breath Neurological: headaches (chronic, now resolved) Exam - Vital Signs Vital signs: Vital Signs Pulse Ox 94 06/23/17 10:14 - General Appearance General appearance: well-developed, well-nourished EENT: ATNC Respiratory: Clear to Ascultation Heart: regular, S1S2 Gastrointestinal: Present: normal. Absent: tenderness, distended Integumentary: no rash Neurologic: alert and oriented x3 Musculoskeletal: Present: other (no edema) Psychiatric: cooperative Results - Lab Results 06/24/17 06:54 06/24/17 04:49 Most recent lab results Calcium 8.4 mg/dL (8.4-10.2) 06/24/17 04:49 Phosphorus 3.40 mg/dL (2.5-4.5) 06/23/17 13:33 Assessment and Plan Impression: * End stage renal disease on HD MWF * Headache, chronic * Hypertension * Type II DM * Anemia secondary to ESRD * Secondary hyperparathyroidism * Medical noncompliance Plan: * Continue hemodialysis * UF as tolerated * Analgesic therapy per primary team * Continue antiHTN medications * Renal diet * Dose medications for renal function
[2017-06-24] MEDS: NOVOLOG SUB-Q SCH ×3 (12:17→22:17)
[2017-06-24] MEDS ORDERED: NACL 0.9% 100 ML IV PRN (12:40)
[2017-06-24] MEDS ORDERED: HEPARIN 10,000 UNITS/10 ML IV PRN ×2 (12:40)
[2017-06-24] MEDS: PERCOCET 5/325 PO PRN (13:00)
--- NOTE | 2017-06-24 15:41 | Progress Note ---
Assessment and Plan Assessment and plan: 61 YO MARGUERITE presented to ER one day ago with complaints of a diffuse and moderately severe headache associated with nausea that occurred while on dialysis. He states he's had similar such headaches before. Apparently he's been admitted to [facility] on more than one occasion with headaches and uncontrolled hypertension. He states he thinks his last CT was 4 months ago. He also states he thinks he had an MRI in the past. At this time he denies neck stiffness or soreness. He denies any focal neurological change. He denies fever or chills. Hypertensive emergency Plan to address problem: Hydralazine 10 mg iv q1 to 3 hr prn If necessary start cardene drip ESRD on hemodialysis Noncompliant, MWF dialyzed one day ago Nephrology following CHF Continue Lasix Possible ECHO T2DM (type 2 diabetes mellitus) Cont oral hypoglycemics and coverage DVT prophylaxis On Heparin History Interval history: Patient was awake and alert laying in bed. His headache has resolved. He denies CP, N/V. He has no complaints at this time Hospitalist Physical - Constitutional Vitals: Temp Pulse Resp BP Pulse Ox 98.0 F 63 16 108/47 97 06/24/17 12:06 06/24/17 07:41 06/24/17 12:06 06/24/17 12:06 06/24/17 07:41 General appearance: Present: no acute distress, well-nourished - EENT Eyes: Present: PERRL, EOM intact ENT: hearing intact, clear oral mucosa - Neck Neck: Present: supple, normal ROM - Respiratory Respiratory effort: normal Respiratory: bilateral: CTA - Cardiovascular Rhythm: regular Heart Sounds: Present: systolic murmur - Extremities Extremities: no ischemia, No edema Extremity abnormal: edema Peripheral Pulses: within normal limits - Abdominal General gastrointestinal: deferred - Integumentary Integumentary: Present: clear, warm, dry - Psychiatric Psychiatric: appropriate mood/affect, intact judgment & insight, memory intact, cooperative - Neurologic Neurologic: moves all extremities - Allied Health Allied health notes reviewed: nursing Results - Labs CBC & Chem 7: 06/24/17 06:54 06/24/17 04:49 Labs: Laboratory Last Values WBC 7.7 K/mm3 (4.5-11.0) 06/24/17 06:54 RBC 3.98 M/mm3 (3.65-5.03) 06/24/17 06:54 Hgb 11.5 gm/dl (11.8-15.2) L 06/24/17 06:54 Hct 36.3 % (35.5-45.6) 06/24/17 06:54 MCV 91 fl (84-94) 06/24/17 06:54 MCH 29 pg (28-32) 06/24/17 06:54 MCHC 32 % (32-34) 06/24/17 06:54 RDW 16.9 % (13.2-15.2) H 06/24/17 06:54 Plt Count 213 K/mm3 (140-440) 06/24/17 06:54 Lymph % (Auto) 23.5 % (13.4-35.0) 06/24/17 06:54 [place] % (Auto) 8.4 % (0.0-7.3) H 06/24/17 06:54 Eos % (Auto) 4.9 % (0.0-4.3) H 06/24/17 06:54 Baso % (Auto) 0.5 % (0.0-1.8) 06/24/17 06:54 Lymph # 1.8 K/mm3 (1.2-5.4) 06/24/17 06:54 [place] # 0.6 K/mm3 (0.0-0.8) 06/24/17 06:54 Eos # 0.4 K/mm3 (0.0-0.4) 06/24/17 06:54 Baso # 0.0 K/mm3 (0.0-0.1) 06/24/17 06:54 Seg Neutrophils % 62.7 % (40.0-70.0) 06/24/17 06:54 Seg Neutrophils # 4.8 K/mm3 (1.8-7.7) 06/24/17 06:54 ESR 11 mm/Hr (0-20) 06/23/17 13:33 PT 13.2 Sec. (12.2-14.9) 06/23/17 13:33 INR 0.95 (0.87-1.13) 06/23/17 13:33 APTT 33.7 Sec. (24.2-36.6) 06/23/17 13:33 Sodium 137 mmol/L (137-145) 06/24/17 04:49 Potassium 4.2 mmol/L (3.6-5.0) 06/24/17 04:49 Chloride 99.9 mmol/L (98-107) 06/24/17 04:49 Carbon Dioxide 25 mmol/L (22-30) 06/24/17 04:49 Anion Gap 16 mmol/L 06/24/17 04:49 BUN 35 mg/dL (9-20) H 06/24/17 04:49 Creatinine 7.0 mg/dL (0.8-1.5) H 06/24/17 04:49 Estimated GFR 10 ml/min 06/24/17 04:49 BUN/Creatinine Ratio 5 % 06/24/17 04:49 Glucose 75 mg/dL (75-100) 06/24/17 04:49 POC Glucose 157 (70-105) H 06/24/17 11:18 Hemoglobin A1c 5.5 % (4-6) 06/24/17 00:52 Calcium 8.4 mg/dL (8.4-10.2) 06/24/17 04:49 Phosphorus 3.40 mg/dL (2.5-4.5) 06/23/17 13:33 Total Bilirubin 0.30 mg/dL (0.1-1.2) 06/24/17 04:49 Direct Bilirubin < 0.2 mg/dL (0-0.2) 06/23/17 13:33 Indirect Bilirubin 0.2 mg/dL 06/23/17 13:33 AST 14 units/L (5-40) 06/24/17 04:49 ALT 15 units/L (7-56) 06/24/17 04:49 Alkaline Phosphatase 68 units/L (35-129) 06/24/17 04:49 C-Reactive Protein 0.50 mg/dL (0.00-1.30) 06/23/17 13:33 NT-Pro-B Natriuret Pep > 02280 pg/mL (0-900) H 06/23/17 13:33 Total Protein 6.2 g/dL (6.3-8.2) L 06/24/17 04:49 Albumin 3.2 g/dL (3.9-5) L 06/24/17 04:49 Albumin/Globulin Ratio 1.1 % 06/24/17 04:49 Urine Color Yellow (Yellow) 06/23/17 12:19 Urine Turbidity Clear (Clear) 06/23/17 12:19 Urine pH 7.0 (5.0-7.0) 06/23/17 12:19 Ur Specific [place] 1.011 (1.003-1.030) 06/23/17 12:19 Urine Protein 100 mg/dl mg/dL (Negative) 06/23/17 12:19 Urine Glucose (UA) 50 mg/dL (Negative) 06/23/17 12:19 Urine Ketones Neg mg/dL (Negative) 06/23/17 12:19 Urine Blood Neg (Negative) 06/23/17 12:19 Urine Nitrite Neg (Negative) 06/23/17 12:19 Urine Bilirubin Neg (Negative) 06/23/17 12:19 Urine Urobilinogen < 2.0 mg/dL (<2.0) 06/23/17 12:19 Ur Leukocyte Esterase Neg (Negative) 06/23/17 12:19 Urine WBC (Auto) 1.0 /HPF (0.0-6.0) 06/23/17 12:19 Urine RBC (Auto) 3.0 /HPF (0.0-6.0) 06/23/17 12:19 Urine Mucus Few /HPF 06/23/17 12:19 - Imaging and Cardiology Chest x-ray: report reviewed CT Scan - head: report reviewed
[2017-06-25 05:23] LABS: Basophils % (Auto) 0.4 % (0.0-1.8); Eosinophils % (Auto) 5.1 % (0.0-4.3); Hematocrit 34.9 % (35.5-45.6); Hemoglobin 11.2 gm/dl (11.8-15.2); Mean Corpuscular HGB Conc 32 % (32-34); Mean Corpuscular Hemoglobin 29 pg (28-32); Mean Corpuscular Volume 91 fl (84-94); Platelet Count 223 K/mm3 (140-440); Red Blood Count 3.82 M/mm3 (3.65-5.03); Red Cell Distribution Width 16.8 % (13.2-15.2); White Blood Count 7.3 K/mm3 (4.5-11.0)
[2017-06-25 05:41] LABS: Calcium 8.7 mg/dL (8.4-10.2); Chloride 98.5 mmol/L (98-107); Phosphorous 6.1 mg/dL (2.5-4.5); Potassium 4.2 mmol/L (3.6-5.0)
[2017-06-25] MEDS: NOVOLOG SUB-Q SCH ×4 (09:09→23:51)
--- NOTE | 2017-06-25 09:13 | Discharge Summary ---
Providers - Providers Date of Admission: 06/23/17 15:46 Attending physician: JELLY OROSCO MD 06/24/17 10:14 Consult to Physician [CONS] Routine Consulting Provider: YAYA SCHMID Reason For Exam: esrd Place consult to:: samia Notified:: Was contact made?: Yes If yes, spoke with:: mary Time called:: 10:54 Comment:: IFEANYI NOTIFIED Primary care physician: REEL TENDER Hospitalization Condition: Stable Hospital course: 61 YO AAM presented to ER one day ago with complaints of a diffuse and moderately severe headache associated with nausea that occurred while on dialysis. He states he's had similar such headaches before. Apparently he's been admitted to [facility] on more than one occasion with headaches and uncontrolled hypertension. He states he thinks his last CT was 4 months ago. He also states he thinks he had an MRI in the past. At this time he denies neck stiffness or soreness. He denies any focal neurological change. He denies fever or chills. Hypertensive emergency Plan to address problem: Hydralazine 10 mg iv q1 to 3 hr prn If necessary start cardene drip ESRD on hemodialysis Noncompliant, MWF dialyzed one day ago Nephrology following CHF Continue Lasix Possible ECHO T2DM (type 2 diabetes mellitus) Cont oral hypoglycemics and coverage DVT prophylaxis On Heparin Disposition: DC-01 TO HOME OR SELFCARE Time spent for discharge: 33 minutes Core Measure Documentation - Palliative Care Palliative Care/ Comfort Measures: Not Applicable - Core Measures Any of the following diagnoses?: none Exam - Constitutional Vitals: Temp Pulse Resp BP Pulse Ox 97.9 F 59 L 16 103/47 97 06/25/17 07:40 06/25/17 07:40 06/25/17 07:40 06/25/17 07:40 06/25/17 07:40 General appearance: Present: no acute distress, well-nourished - EENT Eyes: Present: PERRL ENT: hearing intact, clear oral mucosa - Neck Neck: Present: supple, normal ROM - Respiratory Respiratory effort: normal Respiratory: bilateral: CTA - Cardiovascular Heart Sounds: Present: S1 & S2. Absent: rub, click - Extremities Extremities: pulses symmetrical, No edema Peripheral Pulses: within normal limits - Abdominal General gastrointestinal: Present: soft, non-tender, non-distended, normal bowel sounds Male genitourinary: Present: normal - Integumentary Integumentary: Present: clear, warm, dry - Musculoskeletal Musculoskeletal: gait normal, strength equal bilaterally - Psychiatric Psychiatric: appropriate mood/affect, intact judgment & insight - Neurologic Neurologic: CNII-XII intact, moves all extremities Plan Follow up with: PRIMARY CARE,MD [Primary Care Provider] - 3-5 Days Prescriptions: Furosemide [Lasix] 80 mg PO DAILY #60 tablet hydrALAZINE [Apresoline TAB] 100 mg PO TID #90 tab Lisinopril [Zestril TAB] 40 mg PO QDAY #30 tablet Minoxidil [Loniten] 2.5 mg PO BID #60 tablet NIFEdipine XL [Procardia Xl] 90 mg PO QDAY #30 tablet traMADol [Ultram 50 MG tab] 50 mg PO BID #14 tablet
[2017-06-25] MEDS: PERCOCET 5/325 PO PRN (11:25)
[2017-06-25] MEDS ORDERED: NACL 0.9 (PRIMING MACHINE ONLY DIALYSIS) MC ONE (11:30)
--- NOTE | 2017-06-25 13:00 | Progress Note ---
Assessment and Plan Impression: * End stage renal disease on HD MWF * Headache, chronic * Hypertension * Type II DM * Anemia secondary to ESRD * Secondary hyperparathyroidism * Medical noncompliance Plan: * Continue hemodialysis * UF as tolerated * Analgesic therapy per primary team * Continue antiHTN medications * Renal diet * Dose medications for renal function * stress compliance * ok to dc from renal standpoint Subjective Date of service: 06/25/17 Principal diagnosis: esrd Interval history: resting well in bed today Objective - Exam Narrative Exam: General appearance: well-developed, well-nourished EENT: ATNC Respiratory: Clear to Ascultation Heart: regular, S1S2 Gastrointestinal: Present: normal. Absent: tenderness, distended Integumentary: no rash Neurologic: alert and oriented x3 Musculoskeletal: Present: other (no edema) Psychiatric: cooperative - Vital Signs Vital signs: Vital Signs - 12hr 06/25/17 06/25/17 06/25/17 01:00 04:06 07:40 Temperature 97.7 F 97.9 F Pulse Rate 59 L Respiratory 20 16 16 Rate Blood Pressure 98/48 110/47 103/47 O2 Sat by Pulse 97 Oximetry 06/25/17 06/25/17 06/25/17 10:20 10:30 10:45 Temperature 97.3 F L Pulse Rate 64 61 65 Respiratory 18 Rate Blood Pressure 86/53 92/60 103/55 O2 Sat by Pulse Oximetry 06/25/17 06/25/17 06/25/17 11:00 11:15 11:25 Temperature Pulse Rate 64 64 Respiratory 18 Rate Blood Pressure 95/56 115/61 O2 Sat by Pulse Oximetry 06/25/17 06/25/17 06/25/17 11:30 11:45 12:00 Temperature Pulse Rate 64 68 66 Respiratory Rate Blood Pressure 103/57 105/63 125/67 O2 Sat by Pulse Oximetry 06/25/17 12:15 Temperature 97.7 F Pulse Rate 64 Respiratory 18 Rate Blood Pressure 114/61 O2 Sat by Pulse Oximetry - Lab 06/25/17 05:00 06/25/17 05:00 Most recent lab results Calcium 8.7 mg/dL (8.4-10.2) 06/25/17 05:00 Phosphorus 6.10 mg/dL (2.5-4.5) H 06/25/17 05:00
[2017-06-25] MEDS: ZOFRAN IV PRN (14:09)
[2017-06-25] MEDS: ULTRAM PO SCH ×2 (14:09→22:33)
[2017-06-25] MEDS ORDERED: FIORICET PO PRN (14:42)
[2017-06-25] MEDS: APRESOLINE PO SCH (20:15)
[2017-06-25] MEDS: ALDOMET PO SCH (22:34)
[2017-06-25] MEDS: LONITEN PO SCH (22:34)
[2017-06-26] MEDS: ZOFRAN IV PRN (01:39)
[2017-06-26 05:54] LABS: Basophils % (Auto) 0.3 % (0.0-1.8); Eosinophils % (Auto) 2.5 % (0.0-4.3); Hematocrit 35.3 % (35.5-45.6); Hemoglobin 11.3 gm/dl (11.8-15.2); Mean Corpuscular HGB Conc 32 % (32-34); Mean Corpuscular Hemoglobin 29 pg (28-32); Mean Corpuscular Volume 91 fl (84-94); Platelet Count 225 K/mm3 (140-440); Red Blood Count 3.87 M/mm3 (3.65-5.03); White Blood Count 8.3 K/mm3 (4.5-11.0)
[2017-06-26 06:14] LABS: Calcium 8.7 mg/dL (8.4-10.2); Chloride 95.5 mmol/L (98-107); Phosphorous 5.5 mg/dL (2.5-4.5); Potassium 3.6 mmol/L (3.6-5.0)
[2017-06-26 07:01] VITALS: BP 133/59
[2017-06-26] MEDS: RENVELA PO SCH (09:18)
[2017-06-26] MEDS: GLUCOTROL PO SCH (09:19)
[2017-06-26] MEDS: NOVOLOG SUB-Q SCH (09:21)
[2017-06-26] MEDS: PROCARDIA XL PO SCH (09:23)
[2017-06-26] MEDS: LONITEN PO SCH (09:23)
[2017-06-26] MEDS: ZESTRIL PO SCH (09:23)
[2017-06-26] MEDS: SENSIPAR PO SCH (09:24)
[2017-06-26] MEDS: Renal Caps PO SCH (09:27)
[2017-06-26] MEDS: PROTONIX PO SCH (09:27)
[2017-06-26] MEDS: APRESOLINE PO SCH (09:28)
[2017-06-26] MEDS: LASIX PO SCH (09:28)
[2017-06-26] MEDS: VITAMIN D3 PO SCH (09:32)
--- NOTE | 2017-06-26 12:56 | Progress Note ---
Assessment and Plan Impression: * End stage renal disease on HD MWF * Headache, chronic * Hypertension * Type II DM * Anemia secondary to ESRD * Secondary hyperparathyroidism * Medical noncompliance Plan: * Continue hemodialysis MWF--he has not been completing treatments, sign off AMA * UF as tolerated * Analgesic therapy per primary team * Continue antiHTN medications * Renal diet * Dose medications for renal function * stress compliance * ok to dc from renal standpoint Subjective Date of service: 06/26/17 Principal diagnosis: esrd Interval history: resting well in bed today Objective - Exam Narrative Exam: General appearance: well-developed, well-nourished EENT: ATNC Respiratory: Clear to Ascultation Heart: regular, S1S2 Gastrointestinal: Present: normal. Absent: tenderness, distended Integumentary: no rash Neurologic: alert and oriented x3 Musculoskeletal: Present: other (no edema) Psychiatric: cooperative - Vital Signs Vital signs: Vital Signs - 12hr 06/26/17 06/26/17 05:04 06:58 Temperature 97.9 F 98.4 F Pulse Rate 73 78 Respiratory 16 16 Rate Blood Pressure 119/56 133/59 O2 Sat by Pulse 96 94 Oximetry - Lab 06/26/17 04:31 06/26/17 04:31 Most recent lab results Calcium 8.7 mg/dL (8.4-10.2) 06/26/17 04:31 Phosphorus 5.50 mg/dL (2.5-4.5) H 06/26/17 04:31
--- NOTE | 2017-06-26 16:21 | Progress Note ---
Hospitalist Physical - Constitutional Vitals: Temp Pulse Resp BP Pulse Ox 98.4 F 78 16 133/59 94 06/26/17 06:58 06/26/17 06:58 06/26/17 06:58 06/26/17 06:58 06/26/17 09:00 General appearance: Present: no acute distress, well-nourished Results - Labs CBC & Chem 7: 06/26/17 04:31 06/26/17 04:31 Labs: Laboratory Last Values WBC 8.3 K/mm3 (4.5-11.0) 06/26/17 04:31 RBC 3.87 M/mm3 (3.65-5.03) 06/26/17 04:31 Hgb 11.3 gm/dl (11.8-15.2) L 06/26/17 04:31 Hct 35.3 % (35.5-45.6) L 06/26/17 04:31 MCV 91 fl (84-94) 06/26/17 04:31 MCH 29 pg (28-32) 06/26/17 04:31 MCHC 32 % (32-34) 06/26/17 04:31 RDW 17.0 % (13.2-15.2) H 06/26/17 04:31 Plt Count 225 K/mm3 (140-440) 06/26/17 04:31 Lymph % (Auto) 14.2 % (13.4-35.0) 06/26/17 04:31 [place] % (Auto) 8.5 % (0.0-7.3) H 06/26/17 04:31 Eos % (Auto) 2.5 % (0.0-4.3) 06/26/17 04:31 Baso % (Auto) 0.3 % (0.0-1.8) 06/26/17 04:31 Lymph # 1.2 K/mm3 (1.2-5.4) 06/26/17 04:31 [place] # 0.7 K/mm3 (0.0-0.8) 06/26/17 04:31 Eos # 0.2 K/mm3 (0.0-0.4) 06/26/17 04:31 Baso # 0.0 K/mm3 (0.0-0.1) 06/26/17 04:31 Seg Neutrophils % 74.5 % (40.0-70.0) H 06/26/17 04:31 Seg Neutrophils # 6.2 K/mm3 (1.8-7.7) 06/26/17 04:31 ESR 11 mm/Hr (0-20) 06/23/17 13:33 PT 13.2 Sec. (12.2-14.9) 06/23/17 13:33 INR 0.95 (0.87-1.13) 06/23/17 13:33 APTT 33.7 Sec. (24.2-36.6) 06/23/17 13:33 Sodium 138 mmol/L (137-145) 06/26/17 04:31 Potassium 3.6 mmol/L (3.6-5.0) 06/26/17 04:31 Chloride 95.5 mmol/L (98-107) L 06/26/17 04:31 Carbon Dioxide 25 mmol/L (22-30) 06/26/17 04:31 Anion Gap 21 mmol/L 06/26/17 04:31 BUN 36 mg/dL (9-20) H 06/26/17 04:31 Creatinine 8.6 mg/dL (0.8-1.5) H 06/26/17 04:31 Estimated GFR 8 ml/min 06/26/17 04:31 BUN/Creatinine Ratio 4 % 06/26/17 04:31 Glucose 82 mg/dL (75-100) 06/26/17 04:31 POC Glucose 92 (70-105) 06/26/17 06:10 Hemoglobin A1c 5.5 % (4-6) 06/24/17 00:52 Calcium 8.7 mg/dL (8.4-10.2) 06/26/17 04:31 Phosphorus 5.50 mg/dL (2.5-4.5) H 06/26/17 04:31 Total Bilirubin 0.30 mg/dL (0.1-1.2) 06/24/17 04:49 Direct Bilirubin < 0.2 mg/dL (0-0.2) 06/23/17 13:33 Indirect Bilirubin 0.2 mg/dL 06/23/17 13:33 AST 14 units/L (5-40) 06/24/17 04:49 ALT 15 units/L (7-56) 06/24/17 04:49 Alkaline Phosphatase 68 units/L (35-129) 06/24/17 04:49 C-Reactive Protein 0.50 mg/dL (0.00-1.30) 06/23/17 13:33 NT-Pro-B Natriuret Pep > 79654 pg/mL (0-900) H 06/23/17 13:33 Total Protein 6.2 g/dL (6.3-8.2) L 06/24/17 04:49 Albumin 3.2 g/dL (3.9-5) L 06/24/17 04:49 Albumin/Globulin Ratio 1.1 % 06/24/17 04:49 Urine Color Yellow (Yellow) 06/23/17 12:19 Urine Turbidity Clear (Clear) 06/23/17 12:19 Urine pH 7.0 (5.0-7.0) 06/23/17 12:19 Ur Specific [place] 1.011 (1.003-1.030) 06/23/17 12:19 Urine Protein 100 mg/dl mg/dL (Negative) 06/23/17 12:19 Urine Glucose (UA) 50 mg/dL (Negative) 06/23/17 12:19 Urine Ketones Neg mg/dL (Negative) 06/23/17 12:19 Urine Blood Neg (Negative) 06/23/17 12:19 Urine Nitrite Neg (Negative) 06/23/17 12:19 Urine Bilirubin Neg (Negative) 06/23/17 12:19 Urine Urobilinogen < 2.0 mg/dL (<2.0) 06/23/17 12:19 Ur Leukocyte Esterase Neg (Negative) 06/23/17 12:19 Urine WBC (Auto) 1.0 /HPF (0.0-6.0) 06/23/17 12:19 Urine RBC (Auto) 3.0 /HPF (0.0-6.0) 06/23/17 12:19 Urine Mucus Few /HPF 06/23/17 12:19
== END 2017-06-26 11:05 | disposition home health service (06) | DRG 304 ==
LOC: ED 09:57 → 3A 15:46
PROVIDERS: ADMIT Internal Medicine; ATTEND Internal Medicine
PROC: 3E0234Z Introduction of Serum, Toxoid and Vaccine into Muscle, Percutaneous Approach (ICD-10-PCS; principal; 2017-06-24)
PROC: 5A09357 Assistance with Respiratory Ventilation, Less than 24 Consecutive Hours, Continuous Positive Airway Pressure (ICD-10-PCS; 2017-06-24)
PROC: 5A1D70Z Performance of Urinary Filtration, Intermittent, Less than 6 Hours Per Day (ICD-10-PCS; 2017-06-25)
PROC: 5A09357 Assistance with Respiratory Ventilation, Less than 24 Consecutive Hours, Continuous Positive Airway Pressure (ICD-10-PCS; 2017-06-26)
DX: I16.1 Hypertensive emergency (principal); N18.6 End stage renal disease; N25.81 Secondary hyperparathyroidism of renal origin; R51 Headache; I13.2 Hypertensive heart and chronic kidney disease with heart failure and with stage 5 chronic kidney disease, or end stage renal disease; I44.4 Left anterior fascicular block; I50.9 Heart failure, unspecified; E11.22 Type 2 diabetes mellitus with diabetic chronic kidney disease; D63.1 Anemia in chronic kidney disease; R00.1 Bradycardia, unspecified; Z99.2 Dependence on renal dialysis; Z23 Encounter for immunization; Z91.15 Patient's noncompliance with renal dialysis; Z88.0 Allergy status to penicillin; Z86.718 Personal history of other venous thrombosis and embolism; Z98.49 Cataract extraction status, unspecified eye; Z79.82 Long term (current) use of aspirin; Z79.899 Other long term (current) drug therapy
CPT/HCPCS: 36415; 70450; 71010; 80048; 80053; 80074; 81001; 82962; 83036; 83880; 84100; 85025; 85610; 85652; 85730; 86140; 90686; 93005; 93010; 96374; 96375; J0360; J1170; J1644; J1815; J2405; J7030

== ENCOUNTER 2017-12-01 04:40 | Inpatient (IN) | payer MEDICARE ==
[2017-12-01] MEDS ORDERED: ASPIRIN PO ONE (05:11)
[2017-12-01 06:46] LABS: Basophils % (Auto) 0.4 % (0.0-1.8); Eosinophils # (Auto) 0.3 K/mm3 (0.0-0.4); Eosinophils % (Auto) 2.4 % (0.0-4.3); Hematocrit 42.5 % (35.5-45.6); Hemoglobin 13.6 gm/dl (11.8-15.2); Lymphocytes # (Auto) 1.6 K/mm3 (1.2-5.4); Lymphocytes % (Auto) 12.4 % (13.4-35.0); Mean Corpuscular HGB Conc 32 % (32-34); Mean Corpuscular Hemoglobin 30 pg (28-32); Mean Corpuscular Volume 94 fl (84-94); Monocytes # (Auto) 0.9 K/mm3 (0.0-0.8); Monocytes % (Auto) 6.9 % (0.0-7.3); Platelet Count 290 K/mm3 (140-440); Red Blood Count 4.53 M/mm3 (3.65-5.03); Red Cell Distribution Width 16.4 % (13.2-15.2)
[2017-12-01 06:51] LABS: Calcium 8.7 mg/dL (8.4-10.2)
[2017-12-01 07:08] LABS: Chol/HDL Ratio 2.88 %
[2017-12-01] MEDS ORDERED: NITRO-BID 2% TP ONE (09:27)
[2017-12-01] MEDS ORDERED: NORCO 5/325 PO ONE (09:44)
[2017-12-01] MEDS ORDERED: KIONEX PO ONE (09:44)
--- NOTE | 2017-12-01 10:11 | XRay Report ---
AP CHEST: HISTORY: Hypertension AP view of the chest demonstrates a normal mediastinal and cardiac contour with clear lungs and normal bony and soft tissue structures. IMPRESSION: No acute process.
[2017-12-01 10:12] LABS: Alanine Aminotransferase 10 units/L (7-56)
--- NOTE | 2017-12-01 10:12 | Emergency Department Report ---
ED Chest Pain HPI - General Chief Complaint: Chest Pain Stated Complaint: CHEST PAIN Time Seen by Provider: 12/01/17 09:23 Source: patient Mode of arrival: Ambulatory Limitations: No Limitations - History of Present Illness Initial Comments: Patient states he's had intermittent substernal chest pain for the past approximately 2 days. He's had hiccuping since last night. He denies shortness of breath whatsoever. He's had no cough, no leg pain or swelling. He came here instead of dialysis for evaluation of chest pain. This is his dialysis today. He is been here multiple times with chest pain. He states that it landed hard did a stress test a year and a half ago which recommended medical management. He has never had a PCI or cardiac catheterization. I don' t find the results of that stress test currently. Heart has seen him in the hospit for recent admissions and recommended medical management. MD Complaint: chest pain -: Gradual, days(s) Onset: during rest Pain Location: substernal Pain Radiation: none Severity: mild, moderate Severity scale (0 -10): 4 Quality: dull Consistency: intermittent Improves With: nothing Worsens With: nothing re: other (accepting). denies: nausea, vomting, diaphoresis, dyspnea, sense of impending doom Other Symptoms: denies: cough, fever, syncope, rash, acid taste in mouth, leg swelling Treatments Prior to Arrival: none Aspirin use within the Past 7 Days: (0) No - Related Data On Oral Contraceptives: No Home Medications Medication Instructions Recorded Confirmed Last Taken glipiZIDE [Glucotrol] 5 mg PO DAILY 12/16/13 06/23/17 06/22/17 Cholecalciferol (Vitamin D3) 2,000 unit PO QDAY 06/23/17 06/23/17 06/22/17 [Vitamin D3 2,000 unit] Cinacalcet [Sensipar] 30 mg PO QDAY 06/23/17 06/23/17 06/22/17 Esomeprazole Magnesium [NexIUM] 40 mg PO QDAY 06/23/17 06/23/17 06/22/17 Sevelamer Carbonate [Renvela] 2,400 mg PO TIDWM 06/23/17 06/23/17 06/22/17 Vit B Comp No.3/Folic/C/Biotin 1 each PO DAILY 06/23/17 06/23/17 06/22/17 [Jayleen-Amarilys Rx Tablet] Previous Rx's Medication Instructions Recorded Last Taken Type Furosemide [Lasix] 80 mg PO DAILY #60 tablet 06/25/17 Unknown Rx Lisinopril [Zestril TAB] 40 mg PO QDAY #30 tablet 06/25/17 Unknown Rx Minoxidil [Loniten] 2.5 mg PO BID #60 tablet 06/25/17 Unknown Rx NIFEdipine XL [Procardia Xl] 90 mg PO QDAY #30 tablet 06/25/17 Unknown Rx hydrALAZINE [Apresoline TAB] 100 mg PO TID #90 tab 06/25/17 Unknown Rx traMADol [Ultram 50 MG tab] 50 mg PO BID #14 tablet 06/25/17 Unknown Rx Allergies Allergy/AdvReac Type Severity Reaction Status Date / Time Penicillins Allergy Unknown Verified 10/26/13 10:13 Heart Score - HEART Score History: Slightly suspicious EKG: Non-specific Age: 45-65 Risk factors: 1-2 risk factors Troponin: 1-3x normal limit HEART Score: 4 - Critical Actions Critical Actions: 4-6 pts:12-16.6% risk of adverse cardiac event. Should be admitted ED Review of Systems ROS: Stated complaint: CHEST PAIN Other details as noted in HPI Constitutional: denies: chills, fever Eyes: denies: eye pain, eye discharge, vision change ENT: denies: ear pain, throat pain Respiratory: denies: cough, shortness of breath, wheezing Cardiovascular: chest pain. denies: palpitations Endocrine: no symptoms reported Gastrointestinal: other (hiccuping). denies: abdominal pain, nausea, diarrhea Genitourinary: denies: urgency, dysuria Musculoskeletal: denies: back pain, joint swelling, arthralgia Skin: denies: rash, lesions Neurological: denies: headache, weakness, paresthesias Psychiatric: denies: anxiety, depression Hematological/Lymphatic: denies: easy bleeding, easy bruising ED Past Medical Hx - Past Medical History Hx Hypertension: Yes Hx Congestive Heart Failure: Yes Hx Diabetes: Yes Hx Deep Vein Thrombosis: Yes Hx Renal Disease: Yes (CKD, Dialysis M-W-F) Hx Asthma: No Hx COPD: No Hx HIV: No - Surgical History Additional Surgical History: Cataract surgery - Social History Smoking Status: Never Smoker Substance Use Type: None - Medications Home Medications: Home Medications Medication Instructions Recorded Confirmed Last Taken Type glipiZIDE [Glucotrol] 5 mg PO DAILY 12/16/13 06/23/17 06/22/17 History Cholecalciferol (Vitamin D3) 2,000 unit PO QDAY 06/23/17 06/23/17 06/22/17 History [Vitamin D3 2,000 unit] Cinacalcet [Sensipar] 30 mg PO QDAY 06/23/17 06/23/17 06/22/17 History Esomeprazole Magnesium [NexIUM] 40 mg PO QDAY 06/23/17 06/23/17 06/22/17 History Sevelamer Carbonate [Renvela] 2,400 mg PO TIDWM 06/23/17 06/23/17 06/22/17 History Vit B Comp No.3/Folic/C/Biotin 1 each PO DAILY 06/23/17 06/23/17 06/22/17 History [Jayleen-Amarilys Rx Tablet] Furosemide [Lasix] 80 mg PO DAILY #60 tablet 06/25/17 Unknown Rx Lisinopril [Zestril TAB] 40 mg PO QDAY #30 tablet 06/25/17 Unknown Rx Minoxidil [Loniten] 2.5 mg PO BID #60 tablet 06/25/17 Unknown Rx NIFEdipine XL [Procardia Xl] 90 mg PO QDAY #30 tablet 06/25/17 Unknown Rx hydrALAZINE [Apresoline TAB] 100 mg PO TID #90 tab 06/25/17 Unknown Rx traMADol [Ultram 50 MG tab] 50 mg PO BID #14 tablet 06/25/17 Unknown Rx ED Physical Exam - General Limitations: No Limitations General appearance: alert, in no apparent distress - Head Head exam: Present: atraumatic, normocephalic - Eye Eye exam: Present: normal appearance, PERRL, EOMI. Absent: scleral icterus - ENT ENT exam: Present: mucous membranes moist - Neck Neck exam: Present: normal inspection. Absent: tenderness, meningismus - Respiratory Respiratory exam: Present: normal lung sounds bilaterally. Absent: respiratory distress - Cardiovascular Cardiovascular Exam: Present: regular rate, normal rhythm. Absent: systolic murmur, diastolic murmur, rubs, gallop - GI/Abdominal GI/Abdominal exam: Present: soft, normal bowel sounds. Absent: distended, tenderness, guarding, rebound, rigid - Rectal Rectal exam: Present: deferred - Extremities Exam Extremities exam: Present: normal inspection - Back Exam Back exam: Present: normal inspection - Neurological Exam Neurological exam: Present: alert, oriented X3, CN II-XII intact. Absent: motor sensory deficit - Psychiatric Psychiatric exam: Present: normal affect, normal mood - Skin Skin exam: Present: warm, dry, intact, normal color. Absent: rash ED Course Vital Signs 12/01/17 12/01/17 12/01/17 05:14 09:12 09:19 Temperature 98.3 F 98.3 F Pulse Rate 70 60 59 L Respiratory 18 14 18 Rate Blood Pressure 212/102 Blood Pressure 183/90 [Right] O2 Sat by Pulse 96 95 94 Oximetry 12/01/17 09:40 Temperature Pulse Rate 60 Respiratory Rate Blood Pressure 194/84 Blood Pressure [Right] O2 Sat by Pulse Oximetry - Reevaluation(s) Reevaluation #1: Aspirin and Nitropaste, discussed with Dr. Lugo and admit to telemetry. 30 g of Kayexalate for potassium of 5.3. [facility] and it bled a heart. 12/01/17 10:11 VINAYAK score - Vinayak Score Age > 65: (0) No Aspirin use within the Past 7 Days: (0) No 3 or more CAD Risk Factors: (0) No 2 or more Angina events in past 24 hrs: (0) No Known CAD with more than 50% Stenosis: (0) No Elevated Cardiac Markers: (1) Yes ST Deviation Greater than 0.5mm: (0) No VINAYAK Score: 1 ED Medical Decision Making - Lab Data Result diagrams: 12/01/17 05:25 12/01/17 05:25 Laboratory Results - last 24 hr 12/01/17 12/01/17 12/01/17 05:25 05:25 08:02 WBC 12.9 H RBC 4.53 Hgb 13.6 Hct 42.5 MCV 94 MCH 30 MCHC 32 RDW 16.4 H Plt Count 290 Lymph % (Auto) 12.4 L [place] % (Auto) 6.9 Eos % (Auto) 2.4 Baso % (Auto) 0.4 Lymph # 1.6 [place] # 0.9 H Eos # 0.3 Baso # 0.0 Seg Neutrophils % 77.9 H Seg Neutrophils # 10.1 H Sodium 140 Potassium 5.3 H Chloride 94.1 L Carbon Dioxide 23 Anion Gap 28 BUN 80 H Creatinine 10.6 H Estimated GFR 6 BUN/Creatinine Ratio 8 Glucose 139 H Calcium 8.7 Phosphorus Total Bilirubin AST ALT Alkaline Phosphatase Troponin T 0.046 H 0.032 H D NT-Pro-B Natriuret Pep Total Protein Albumin Albumin/Globulin Ratio Triglycerides 109 Cholesterol 130 LDL Cholesterol Direct 76 HDL Cholesterol 45 Cholesterol/HDL Ratio 2.88 12/01/17 09:43 WBC RBC Hgb Hct MCV MCH MCHC RDW Plt Count Lymph % (Auto) [place] % (Auto) Eos % (Auto) Baso % (Auto) Lymph # [place] # Eos # Baso # Seg Neutrophils % Seg Neutrophils # Sodium Potassium Chloride Carbon Dioxide Anion Gap BUN Creatinine Estimated GFR BUN/Creatinine Ratio Glucose Calcium Phosphorus 7.40 H Total Bilirubin 0.40 AST 9 ALT 10 Alkaline Phosphatase 123 Troponin T NT-Pro-B Natriuret Pep 98034 H Total Protein 7.8 Albumin 4.0 Albumin/Globulin Ratio 1.1 Triglycerides Cholesterol LDL Cholesterol Direct HDL Cholesterol Cholesterol/HDL Ratio - EKG Data -: EKG Interpreted by Me EKG shows normal: sinus rhythm, axis, intervals, QRS complexes, ST-T waves - EKG Data Interpretation: no acute changes, LVH, other (left axis deviation) - Radiology Data interpreted by me: Chest x-ray no acute process Critical Care Time: Yes Critical care time in (mins) excluding proc time.: 45 Critical care attestation.: If time is entered above; I have spent that time in minutes in the direct care of this critically ill patient, excluding procedure time. ED Disposition Clinical Impression: Accelerated hypertension, Hyperkalemia Chest pain Qualifiers: Chest pain type: unspecified Qualified Code(s): R07.9 - Chest pain, unspecified Cardiomyopathy Qualifiers: Cardiomyopathy type: unspecified Qualified Code(s): I42.9 - Cardiomyopathy, unspecified Type 2 diabetes mellitus Qualifiers: Diabetes mellitus longterm insulin use: without fitness and wellness director use Diabetes mellitus complication status: with kidney complications Diabetes mellitus complication detail: with chronic kidney disease Chronic kidney disease stage: on chronic dialysis Qualified Code(s): E11.22 - Type 2 diabetes mellitus with diabetic chronic kidney disease; N18.6 - End stage renal disease; Z99.2 - Dependence on renal dialysis Disposition: 09 OP ADMIT IP TO THIS HOSP Is pt being admited?: Yes Does the pt Need Aspirin: Yes Condition: Stable Instructions: Hypertension (ED), Chest Pain (ED), Diabetes Mellitus Type 2 in Adults (ED) Referrals: DAMON VILLEGAS MD [Primary Care Provider] - 3-5 Days Time of Disposition: 10:15
[2017-12-01 10:17] LABS: Bilirubin,Direct < 0.2 mg/dL (0-0.2)
[2017-12-01 10:18] LABS: INR 0.99 (0.87-1.13)
[2017-12-01 10:19] LABS: Partial Thromboplastin Time 35.2 Sec. (24.2-36.6)
[2017-12-01] MEDS ORDERED: APRESOLINE IV ONE (10:38)
--- NOTE | 2017-12-01 12:45 | Consultation ---
History of Present Illness Consult date: 12/01/17 Consult reason: chest pain History of present illness: This is a 62yr old male with a history of hypertension, end stage renal disease who presents to the ED with chest pain and shortness of breath. Chest pain is poorly characterized. There were no reports of exertional chest pain. Noted hypertensive in the emergency department, BP 212/102. Patient is also noted hyperkalemic, potassium of 5.3. He is due to have dialysis today. Chest xray is negative. A 12 lead ECG is a sinus rhythm with LVH. Cardiac consultation requested for further recommendations. Medications and Allergies Allergies Allergy/AdvReac Type Severity Reaction Status Date / Time Penicillins Allergy Unknown Verified 10/26/13 10:13 Home Medications Medication Instructions Recorded Confirmed Last Taken Type Cholecalciferol (Vitamin D3) 2,000 unit PO QDAY 06/23/17 12/01/17 06/22/17 History [Vitamin D3 2,000 unit] Esomeprazole Magnesium [NexIUM] 40 mg PO QDAY 06/23/17 12/01/17 06/22/17 History NIFEdipine XL [Procardia Xl] 90 mg PO QDAY #30 tablet 06/25/17 12/01/17 Unknown Rx hydrALAZINE [Apresoline TAB] 100 mg PO TID #90 tab 06/25/17 12/01/17 Unknown Rx Methyldopa [Aldomet] 500 mg PO BID 12/01/17 12/01/17 Unknown History Active Meds: Active Medications Aspirin (Baby Aspirin) 81 mg PO QDAY LAURA Famotidine (Pepcid) 20 mg PO BID LAURA Hydralazine HCl (Apresoline) 100 mg PO TID LAURA Hydralazine HCl (Apresoline) 10 mg IV Q4HR PRN PRN Reason: Hypertension Methyldopa (Aldomet) 500 mg PO BID LAURA Morphine Sulfate (Morphine) 2 mg IV Q4H PRN PRN Reason: Pain, Moderate (4-6) Nifedipine (Procardia Xl) 90 mg PO QDAY [facility] Physical Examination Vital Signs Temp Pulse Resp BP Pulse Ox 98.3 F 70 18 212/102 96 12/01/17 05:14 12/01/17 05:14 12/01/17 05:14 12/01/17 05:14 12/01/17 05:14 General appearance: no acute distress Cardiac: Positive: Reg Rate and Rhythm Lungs: Positive: Decreased Breath Sounds Neuro: Positive: Grossly Intact Extremities: Absent: edema Results 12/01/17 05:25 12/01/17 05:25 Cardiac Enzymes 12/01/17 Range/Units 09:43 AST 9 (5-40) units/L Coagulation 12/01/17 Range/Units 09:43 PT 13.6 (12.2-14.9) Sec. INR 0.99 (0.87-1.13) APTT 35.2 (24.2-36.6) Sec. Lipids 12/01/17 Range/Units 05:25 Triglycerides 109 (2-149) mg/dL Cholesterol 130 (50-199) mg/dL HDL Cholesterol 45 (40-59) mg/dL Cholesterol/HDL Ratio 2.88 % CBC 12/01/17 Range/Units 05:25 WBC 12.9 H (4.5-11.0) K/mm3 RBC 4.53 (3.65-5.03) M/mm3 Hgb 13.6 (11.8-15.2) gm/dl Hct 42.5 (35.5-45.6) % Plt Count 290 (140-440) K/mm3 Lymph # 1.6 (1.2-5.4) K/mm3 Falls # 0.9 H (0.0-0.8) K/mm3 Eos # 0.3 (0.0-0.4) K/mm3 Baso # 0.0 (0.0-0.1) K/mm3 Comprehensive Metabolic Panel 12/01/17 12/01/17 Range/Units 05:25 09:43 Sodium 140 (137-145) mmol/L Potassium 5.3 H (3.6-5.0) mmol/L Chloride 94.1 L (98-107) mmol/L Carbon Dioxide 23 (22-30) mmol/L BUN 80 H (9-20) mg/dL Creatinine 10.6 H (0.8-1.5) mg/dL Glucose 139 H (75-100) mg/dL Calcium 8.7 (8.4-10.2) mg/dL Direct Bilirubin < 0.2 (0-0.2) mg/dL Indirect Bilirubin 0.2 mg/dL AST 9 (5-40) units/L ALT 10 (7-56) units/L Alkaline Phosphatase 123 (35-129) units/L Total Protein 7.8 (6.3-8.2) g/dL Albumin 4.0 (3.9-5) g/dL Assessment and Plan Chest pain, atypical Hypertension -uncontrolled ESRD on dialysis Hyperkalemia Elevated troponin, likely from renal disease
--- NOTE | 2017-12-01 13:39 | Consultation ---
History of Present Illness - Reason for Consult Consult date: 12/01/17 end stage renal disease Requesting physician: JOYCE DEJESUS - History of Present Illness Mr. Stewart is a 61yo with ESRD on HD MWF who presented to the ED with chest pain and headache. Mr. Stewart has a hx of chronic headaches. Of note, patient is not compliant with dialysis treatments - he frequently misses treatments and terminates treatment early. Past History Past Medical History: diabetes, dialysis, ESRD, hypertension Review of Systems All systems: negative Cardiovascular: no shortness of breath Neurological: headaches (chronic, now resolved) * Dose medications for renal function Past History Past Surgical History: Other (dialysis access placement) Social history: denies: alcohol abuse, prescription drug abuse Family history: hypertension Medications and Allergies Allergies Allergy/AdvReac Type Severity Reaction Status Date / Time Penicillins Allergy Unknown Verified 10/26/13 10:13 Home Medications Medication Instructions Recorded Confirmed Last Taken Type Cholecalciferol (Vitamin D3) 2,000 unit PO QDAY 06/23/17 12/01/17 06/22/17 History [Vitamin D3 2,000 unit] Esomeprazole Magnesium [NexIUM] 40 mg PO QDAY 06/23/17 12/01/17 06/22/17 History NIFEdipine XL [Procardia Xl] 90 mg PO QDAY #30 tablet 06/25/17 12/01/17 Unknown Rx hydrALAZINE [Apresoline TAB] 100 mg PO TID #90 tab 06/25/17 12/01/17 Unknown Rx Methyldopa [Aldomet] 500 mg PO BID 12/01/17 12/01/17 Unknown History Active Meds: Active Medications Aspirin (Baby Aspirin) 81 mg PO QDAY LAURA Famotidine (Pepcid) 20 mg PO BID LAURA Hydralazine HCl (Apresoline) 100 mg PO TID LAURA Hydralazine HCl (Apresoline) 10 mg IV Q4H PRN PRN Reason: Hypertension Methyldopa (Aldomet) 500 mg PO BID LAURA Morphine Sulfate (Morphine) 2 mg IV Q4H PRN PRN Reason: Pain, Moderate (4-6) Nifedipine (Procardia Xl) 90 mg PO QDAY LAURA Exam - Vital Signs Vital signs: Vital Signs Temp Pulse Resp BP Pulse Ox 98.3 F 70 18 212/102 96 12/01/17 05:14 12/01/17 05:14 12/01/17 05:14 12/01/17 05:14 12/01/17 05:14 - Physical Exam Narrative exam: Exam - Vital Signs Vital signs: Vital Signs Pulse Ox 94 06/23/17 10:14 General appearance: well-developed, well-nourished EENT: ATNC Respiratory: Clear to Ascultation Heart: regular, S1S2 Gastrointestinal: Present: normal. Absent: tenderness, distended Integumentary: no rash Neurologic: alert and oriented x3 Musculoskeletal: Present: other (no edema) Psychiatric: cooperative Results - Lab Results 12/01/17 05:25 12/01/17 05:25 Most recent lab results Calcium 8.7 mg/dL (8.4-10.2) 12/01/17 05:25 Phosphorus 7.40 mg/dL (2.5-4.5) H 12/01/17 09:43 Assessment and Plan Impression: * End stage renal disease on HD MWF * Headache, chronic * chest pain * Hypertension * Type II DM * Anemia secondary to ESRD * Secondary hyperparathyroidism * Medical noncompliance Plan: * Continue hemodialysis today and prn * strict i/os * cards to evaluate chest pain * UF as tolerated * Analgesic therapy per primary team * Continue antiHTN medications * Renal diet
--- NOTE | 2017-12-01 15:43 | History and Physical Report ---
History of Present Illness Date of examination: 12/01/17 Date of admission: 12/01/17 09:52 Chief complaint: Chest Pain History of present illness: 62-year-old male with past medical history significant for end-stage renal disease on hemodialysis M, W, F, diabetes mellitus type 2, hypertension presented to the emergency department complaining of mid substernal chest pain the last 2 days. Pain is sharp, intermittent, no radiation, 10 out of 10 in intensity, no associated shortness of breath or diaphoresis. Patient denied fever, chills, shortness of breath, palpitation, leg swelling. Patient is still complaining headache is chronic and usually happens after dialysis. REVIEW OF SYSTEMS: GENERAL: no weight change, no fatigue, no fever HEAD: no head ache EYES: no blurry vision, no acute visual loss EARS: no hearing loss, no discharge, no earache NOSE: no stuffiness, no sneezing, no discharge MOUTH, THROAT AND NECK: no bleeding gums, no sore throat, no swollen neck CARDIAC: As stated in HPI. RESPIRATORY: no shortness of breath, no wheeze, no cough, no sputum, no hemoptysis, no asthma GI: no decreased appetite, no nausea, no vomiting, no dysphagia, no diarrhea, no constipation, no abdominal pain URINARY: no change in frequency, no urgency, no polyuria, no hematuria, no incontinence MUSCULOSKELETAL: no muscle weakness, no pain, no joint stiffness NEUROLOGIC: no loss of sensation/numbness, no tingling, no tremors, no weakness/ paralysis HEMATOLOGIC: no anemia, no easy bruising SKIN: no rashes ENDOCRINE: no heat/cold intolerance, no polyuria, no polydipsia, no thyroid problems, no diabetes PSYCHIATRIC: no anxiety, no depression, no suicidal ideations Past History Past Medical History: diabetes, hypertension, renal failure Past Surgical History: Other (dialysis access placement) Social history: full code. denies: alcohol abuse, prescription drug abuse Family history: hypertension Medications and Allergies Allergies Allergy/AdvReac Type Severity Reaction Status Date / Time Penicillins Allergy Unknown Verified 10/26/13 10:13 Home Medications Medication Instructions Recorded Confirmed Last Taken Type Cholecalciferol (Vitamin D3) 2,000 unit PO QDAY 06/23/17 12/01/17 06/22/17 History [Vitamin D3 2,000 unit] Esomeprazole Magnesium [NexIUM] 40 mg PO QDAY 06/23/17 12/01/17 06/22/17 History NIFEdipine XL [Procardia Xl] 90 mg PO QDAY #30 tablet 06/25/17 12/01/17 Unknown Rx hydrALAZINE [Apresoline TAB] 100 mg PO TID #90 tab 06/25/17 12/01/17 Unknown Rx Methyldopa [Aldomet] 500 mg PO BID 12/01/17 12/01/17 Unknown History Active Meds: Active Medications Aspirin (Baby Aspirin) 81 mg PO QDAY LAURA Famotidine (Pepcid) 20 mg PO BID LAURA Hydralazine HCl (Apresoline) 100 mg PO TID LAURA Hydralazine HCl (Apresoline) 10 mg IV Q4H PRN PRN Reason: Hypertension Methyldopa (Aldomet) 500 mg PO BID LAURA Morphine Sulfate (Morphine) 2 mg IV Q4H PRN PRN Reason: Pain, Moderate (4-6) Nifedipine (Procardia Xl) 90 mg PO QDAY LAURA Exam - Physical Exam Narrative exam: Not in cardiopulmonary distress. The patient appeared well nourished and normally developed. Vital signs as documented. Head exam is unremarkable. No scleral icterus . Neck is without jugular venous distension, thyromegaly, or carotid bruits. Lungs are clear to auscultation. Cardiac exam reveals regular rate and Rhythm. First and second heart sounds normal. No murmurs, rubs or gallops. Abdominal exam reveals normal bowel sounds, no masses, no organomegaly and no aortic enlargement. Extremities are nonedematous and both femoral and pedal pulses are normal. 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 No focal weakness. - Constitutional Vitals: Temp Pulse Resp BP Pulse Ox 98.3 F 67 12 158/79 94 12/01/17 09:19 12/01/17 14:00 12/01/17 14:00 12/01/17 12:30 12/01/17 14:00 Results - Labs CBC & Chem 7: 12/01/17 05:25 12/01/17 05:25 Labs: Laboratory Last Values WBC 12.9 K/mm3 (4.5-11.0) H 12/01/17 05:25 RBC 4.53 M/mm3 (3.65-5.03) 12/01/17 05:25 Hgb 13.6 gm/dl (11.8-15.2) 12/01/17 05:25 Hct 42.5 % (35.5-45.6) 12/01/17 05:25 MCV 94 fl (84-94) 12/01/17 05:25 MCH 30 pg (28-32) 12/01/17 05:25 MCHC 32 % (32-34) 12/01/17 05:25 RDW 16.4 % (13.2-15.2) H 12/01/17 05:25 Plt Count 290 K/mm3 (140-440) 12/01/17 05:25 Lymph % (Auto) 12.4 % (13.4-35.0) L 12/01/17 05:25 Iron % (Auto) 6.9 % (0.0-7.3) 12/01/17 05:25 Eos % (Auto) 2.4 % (0.0-4.3) 12/01/17 05:25 Baso % (Auto) 0.4 % (0.0-1.8) 12/01/17 05:25 Lymph # 1.6 K/mm3 (1.2-5.4) 12/01/17 05:25 Iron # 0.9 K/mm3 (0.0-0.8) H 12/01/17 05:25 Eos # 0.3 K/mm3 (0.0-0.4) 12/01/17 05:25 Baso # 0.0 K/mm3 (0.0-0.1) 12/01/17 05:25 Seg Neutrophils % 77.9 % (40.0-70.0) H 12/01/17 05:25 Seg Neutrophils # 10.1 K/mm3 (1.8-7.7) H 12/01/17 05:25 PT 13.6 Sec. (12.2-14.9) 12/01/17 09:43 INR 0.99 (0.87-1.13) 12/01/17 09:43 APTT 35.2 Sec. (24.2-36.6) 12/01/17 09:43 D-Dimer 346.54 ng/mlDDU (0-234) H 12/01/17 09:43 Sodium 140 mmol/L (137-145) 12/01/17 05:25 Potassium 5.3 mmol/L (3.6-5.0) H 12/01/17 05:25 Chloride 94.1 mmol/L (98-107) L 12/01/17 05:25 Carbon Dioxide 23 mmol/L (22-30) 12/01/17 05:25 Anion Gap 28 mmol/L 12/01/17 05:25 BUN 80 mg/dL (9-20) H 12/01/17 05:25 Creatinine 10.6 mg/dL (0.8-1.5) H 12/01/17 05:25 Estimated GFR 6 ml/min 12/01/17 05:25 BUN/Creatinine Ratio 8 % 12/01/17 05:25 Glucose 139 mg/dL (75-100) H 12/01/17 05:25 Calcium 8.7 mg/dL (8.4-10.2) 12/01/17 05:25 Phosphorus 7.40 mg/dL (2.5-4.5) H 12/01/17 09:43 Total Bilirubin 0.40 mg/dL (0.1-1.2) 12/01/17 09:43 Direct Bilirubin < 0.2 mg/dL (0-0.2) 12/01/17 09:43 Indirect Bilirubin 0.2 mg/dL 12/01/17 09:43 AST 9 units/L (5-40) 12/01/17 09:43 ALT 10 units/L (7-56) 12/01/17 09:43 Alkaline Phosphatase 123 units/L (35-129) 12/01/17 09:43 Troponin T 0.040 ng/mL (0.00-0.029) H D 12/01/17 11:02 NT-Pro-B Natriuret Pep 04579 pg/mL (0-900) H 12/01/17 09:43 Total Protein 7.8 g/dL (6.3-8.2) 12/01/17 09:43 Albumin 4.0 g/dL (3.9-5) 12/01/17 09:43 Albumin/Globulin Ratio 1.1 % 12/01/17 09:43 Triglycerides 109 mg/dL (2-149) 12/01/17 05:25 Cholesterol 130 mg/dL (50-199) 12/01/17 05:25 LDL Cholesterol Direct 76 mg/dL (50-130) 12/01/17 05:25 HDL Cholesterol 45 mg/dL (40-59) 12/01/17 05:25 Cholesterol/HDL Ratio 2.88 % 12/01/17 05:25 Assessment and Plan Assessment and plan: End-stage renal disease on hemodialysis - Nephrology consulted - Continue dialysis as needed Chest pain - Mildly elevated cardiac enzymes - Cardiology consulted and will do echo and stress test in the morning Hypertensive urgency - Continue home medications, when necessary hydralazine Diabetes mellitus - Accu-Chek, ADA diet, sliding scale insulin DVT prophylaxis - On heparin Disposition - Admit to telemetry floor Advance Directives: Yes VTE prophylaxis?: Chemical Plan of care discussed with patient/family: Yes
[2017-12-01] MEDS: APRESOLINE IV PRN (17:14)
[2017-12-01] MEDS: MORPHINE IV PRN ×2 (17:44→21:48)
[2017-12-01] MEDS ORDERED: ELIQUIS ONE (17:57)
[2017-12-01] MEDS: ALDOMET PO SCH (21:49)
[2017-12-01] MEDS: PEPCID PO SCH (21:49)
[2017-12-01] MEDS: APRESOLINE PO SCH (21:50)
[2017-12-01] MEDS: HEPARIN SUB-Q SCH (21:50)
[2017-12-02] MEDS: HEPARIN SUB-Q SCH ×3 (06:03→21:47)
[2017-12-02] MEDS: ALDOMET PO SCH ×3 (07:41→21:46)
[2017-12-02] MEDS: APRESOLINE PO SCH ×4 (07:41→21:47)
[2017-12-02] MEDS: PROCARDIA XL PO SCH ×2 (07:41→12:16)
[2017-12-02] MEDS ORDERED: LEXISCAN IV ONE (09:17)
[2017-12-02] MEDS: PEPCID PO SCH ×2 (12:16→21:47)
[2017-12-02] MEDS: BABY ASPIRIN PO SCH (12:16)
--- NOTE | 2017-12-02 14:32 | Progress Note ---
Assessment and Plan Impression: * End stage renal disease on HD MWF * Headache, chronic * Chest pain * Hypertension * Type II DM * Anemia secondary to ESRD * Secondary hyperparathyroidism * Medical noncompliance Plan: * Continue hemodialysis MWF * Cardiology recommendations noted * UF as tolerated * Analgesic therapy per primary team * Continue antiHTN medications * Renal diet Subjective Date of service: 12/02/17 Interval history: Patient has no complaints today. Denies headache at present. Denies chest pain and SOB. Objective - Vital Signs Vital signs: Vital Signs - 12hr 12/02/17 12/02/17 12/02/17 04:10 05:00 07:42 Temperature 98.3 F Pulse Rate 72 88 57 L Respiratory 18 Rate Blood Pressure Blood Pressure 142/71 [Right] O2 Sat by Pulse 95 Oximetry 12/02/17 12/02/17 12/02/17 08:07 09:36 10:00 Temperature 98.4 F Pulse Rate 58 L 59 L 79 Respiratory 18 Rate Blood Pressure 166/70 182/82 179/84 Blood Pressure [Right] O2 Sat by Pulse 93 Oximetry 12/02/17 12/02/17 12/02/17 10:01 10:02 10:03 Temperature Pulse Rate 88 81 81 Respiratory Rate Blood Pressure 155/70 165/72 165/72 Blood Pressure [Right] O2 Sat by Pulse Oximetry 12/02/17 12/02/17 12/02/17 10:04 10:05 13:11 Temperature 98.5 F Pulse Rate 81 79 Respiratory 18 Rate Blood Pressure 170/70 167/69 179/77 Blood Pressure [Right] O2 Sat by Pulse Oximetry - General Appearance General appearance: well-developed, well-nourished EENT: ATNC Respiratory: Present: Clear to Ascultation Cardiology: regular, S1S2 Gastrointestinal: normal, no tenderness, no distended Integumentary: no rash Neurologic: alert and oriented x3 Musculoskeletal: other (no edema) Psychiatric: cooperative - Lab 12/01/17 05:25 12/01/17 05:25 Most recent lab results Calcium 8.7 mg/dL (8.4-10.2) 12/01/17 05:25 Phosphorus 7.40 mg/dL (2.5-4.5) H 12/01/17 09:43
--- NOTE | 2017-12-02 15:17 | Progress Note ---
Assessment and Plan - Patient Problems (1) Chest pain Current Visit: Yes Status: Acute Qualifiers: Chest pain type: unspecified Qualified Code(s): R07.9 - Chest pain, unspecified Plan to address problem: A review of his records shows that for several years, he has had recurrent hospital admissions for overload and heart failure with preserved ejection fraction. He has been previously considered for diagnostic coronary angiography on multiple occasions but this evaluation deferred due to anticipated risk of contrast nephropathy. A year ago, the patient was started on hemodialysis. He presents at this time with chest pain, it will be prudent to consider invasive cardiac evaluation with coronary angiography for definitive rule out CORONARY artery disease for his continuous and recurrent symptoms. Subjective Date of service: 12/02/17 Interval history: The patient underwent a Persantine thallium stress test today, we found a small fixed basal inferior defect, diaphragmatic attenuation artifact versus old basal inferior DE. An echocardiogram shows well-preserved left ventricle systolic function with ejection fraction 55%. No severe valvular lesions. A review of his records shows that for several years, he has had recurrent hospital admissions for overload and heart failure with preserved ejection fraction. He has been previously considered for diagnostic coronary angiography on multiple occasions but this evaluation deferred due to anticipated risk of contrast nephropathy. A year ago, the patient was started on hemodialysis. He presents at this time with chest pain, it will be prudent to consider invasive cardiac evaluation with coronary angiography for definitive rule out CORONARY artery disease for his continuous and recurrent symptoms. Objective Vital Signs Temp Pulse Resp Resp BP BP Pulse Ox 12/02/17 13:11 98.5 F 18 179/77 12/02/17 10:05 79 167/69 12/02/17 10:04 81 170/70 12/02/17 10:03 81 165/72 12/02/17 10:02 81 165/72 12/02/17 10:01 88 155/70 12/02/17 10:00 79 179/84 12/02/17 09:36 59 L 182/82 12/02/17 08:07 98.4 F 58 L 18 166/70 93 12/02/17 07:42 57 L 12/02/17 05:00 88 12/02/17 04:10 98.3 F 72 18 142/71 95 12/01/17 23:45 98.1 F 68 20 138/73 95 12/01/17 22:00 20 04/25/18 21:49 72 143/69 12/01/17 21:39 72 12/01/17 20:49 98.1 F 20 143/69 12/01/17 19:20 98.2 F 64 20 149/70 12/01/17 19:08 65 149/63 12/01/17 18:45 63 139/73 12/01/17 18:30 63 142/71 12/01/17 18:15 63 138/69 12/01/17 18:00 64 134/73 12/01/17 17:45 66 139/73 12/01/17 17:30 64 164/86 12/01/17 17:15 57 L 192/83 12/01/17 17:14 57 L 203/93 12/01/17 17:00 57 L 203/93 12/01/17 16:45 58 L 207/85 12/01/17 16:30 58 L 179/82 12/01/17 16:15 58 L 192/86 12/01/17 16:00 57 L 173/85 12/01/17 15:45 58 L 190/90 12/01/17 15:38 59 L 183/85 12/01/17 15:15 98.3 F 62 12 177/87 - Physical Examination General: No Apparent Distress HEENT: Positive: PERRL Neck: Positive: neck supple Cardiac: Positive: Reg Rate and Rhythm Lungs: Positive: Decreased Breath Sounds Neuro: Positive: Grossly Intact Abdomen: Positive: Soft Skin: Positive: Clear Extremities: Absent: edema
--- NOTE | 2017-12-02 16:10 | Progress Note ---
Assessment and Plan Assessment and plan: 62-year-old -[place]i woman with past medical history significant for ESRD on HD, hypertension, diabetes mellitus was presented to the emergency department complaining of intermittent chest pain. End-stage renal disease on hemodialysis - Nephrology consulted - Continue dialysis as needed Chest pain -Echo and stress test was done this morning -Patient to have cardiac cath tomorrow - Cardiology consult appreciated Hypertensive urgency - Continue home medications, when necessary hydralazine Diabetes mellitus - Accu-Chek, ADA diet, sliding scale insulin DVT prophylaxis - On heparin Disposition -Continue inpatient care and possible discharge after cardiac cath tomorrow if normal. History Interval history: Patient was seen and evaluated this morning, chest pain subsided, no new complaints. Hospitalist Physical - Physical exam Narrative exam: Not in cardiopulmonary distress. The patient appeared well nourished and normally developed. Vital signs as documented. Head exam is unremarkable. No scleral icterus . Neck is without jugular venous distension, thyromegaly, or carotid bruits. Lungs are clear to auscultation. Cardiac exam reveals regular rate and Rhythm. First and second heart sounds normal. No murmurs, rubs or gallops. Abdominal exam reveals normal bowel sounds, no masses, no organomegaly and no aortic enlargement. Extremities are nonedematous and both femoral and pedal pulses are normal. 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 No focal weakness. - Constitutional Vitals: Temp Pulse Resp BP Pulse Ox 98.5 F 79 18 179/77 93 12/02/17 13:11 12/02/17 10:05 12/02/17 13:11 12/02/17 13:11 12/02/17 08:07 General appearance: Present: no acute distress Results - Labs CBC & Chem 7: 12/01/17 05:25 12/01/17 05:25 Labs: Laboratory Last Values WBC 12.9 K/mm3 (4.5-11.0) H 12/01/17 05:25 RBC 4.53 M/mm3 (3.65-5.03) 12/01/17 05:25 Hgb 13.6 gm/dl (11.8-15.2) 12/01/17 05:25 Hct 42.5 % (35.5-45.6) 12/01/17 05:25 MCV 94 fl (84-94) 12/01/17 05:25 MCH 30 pg (28-32) 12/01/17 05:25 MCHC 32 % (32-34) 12/01/17 05:25 RDW 16.4 % (13.2-15.2) H 12/01/17 05:25 Plt Count 290 K/mm3 (140-440) 12/01/17 05:25 Lymph % (Auto) 12.4 % (13.4-35.0) L 12/01/17 05:25 [place] % (Auto) 6.9 % (0.0-7.3) 12/01/17 05:25 Eos % (Auto) 2.4 % (0.0-4.3) 12/01/17 05:25 Baso % (Auto) 0.4 % (0.0-1.8) 12/01/17 05:25 Lymph # 1.6 K/mm3 (1.2-5.4) 12/01/17 05:25 [place] # 0.9 K/mm3 (0.0-0.8) H 12/01/17 05:25 Eos # 0.3 K/mm3 (0.0-0.4) 12/01/17 05:25 Baso # 0.0 K/mm3 (0.0-0.1) 12/01/17 05:25 Seg Neutrophils % 77.9 % (40.0-70.0) H 12/01/17 05:25 Seg Neutrophils # 10.1 K/mm3 (1.8-7.7) H 12/01/17 05:25 PT 13.6 Sec. (12.2-14.9) 12/01/17 09:43 INR 0.99 (0.87-1.13) 12/01/17 09:43 APTT 35.2 Sec. (24.2-36.6) 12/01/17 09:43 D-Dimer 346.54 ng/mlDDU (0-234) H 12/01/17 09:43 Sodium 140 mmol/L (137-145) 12/01/17 05:25 Potassium 5.3 mmol/L (3.6-5.0) H 12/01/17 05:25 Chloride 94.1 mmol/L (98-107) L 12/01/17 05:25 Carbon Dioxide 23 mmol/L (22-30) 12/01/17 05:25 Anion Gap 28 mmol/L 12/01/17 05:25 BUN 80 mg/dL (9-20) H 12/01/17 05:25 Creatinine 10.6 mg/dL (0.8-1.5) H 12/01/17 05:25 Estimated GFR 6 ml/min 12/01/17 05:25 BUN/Creatinine Ratio 8 % 12/01/17 05:25 Glucose 139 mg/dL (75-100) H 12/01/17 05:25 Calcium 8.7 mg/dL (8.4-10.2) 12/01/17 05:25 Phosphorus 7.40 mg/dL (2.5-4.5) H 12/01/17 09:43 Total Bilirubin 0.40 mg/dL (0.1-1.2) 12/01/17 09:43 Direct Bilirubin < 0.2 mg/dL (0-0.2) 12/01/17 09:43 Indirect Bilirubin 0.2 mg/dL 12/01/17 09:43 AST 9 units/L (5-40) 12/01/17 09:43 ALT 10 units/L (7-56) 12/01/17 09:43 Alkaline Phosphatase 123 units/L (35-129) 12/01/17 09:43 Troponin T 0.040 ng/mL (0.00-0.029) H D 12/01/17 11:02 NT-Pro-B Natriuret Pep 78404 pg/mL (0-900) H 12/01/17 09:43 Total Protein 7.8 g/dL (6.3-8.2) 12/01/17 09:43 Albumin 4.0 g/dL (3.9-5) 12/01/17 09:43 Albumin/Globulin Ratio 1.1 % 12/01/17 09:43 Triglycerides 109 mg/dL (2-149) 12/01/17 05:25 Cholesterol 130 mg/dL (50-199) 12/01/17 05:25 LDL Cholesterol Direct 76 mg/dL (50-130) 12/01/17 05:25 HDL Cholesterol 45 mg/dL (40-59) 12/01/17 05:25 Cholesterol/HDL Ratio 2.88 % 12/01/17 05:25
--- NOTE | 2017-12-02 21:03 | Treadmill Report ---
THALLIUM STRESS TEST LEFT VENTRICLE: Left ventricular chamber size is within normal spread. Perfusion study demonstrates a small fixed basal inferior defect, with left ventricular ejection fraction well preserved at 55%. CONCLUSION: Small fixed basal inferior defect, diaphragmatic attenuation artifact versus old inferior wall myocardial infarction. Clinical correlation is recommended. JOB# [id number] CA/NTS
[2017-12-02] MEDS: MORPHINE IV PRN (21:45)
[2017-12-03] MEDS: HEPARIN SUB-Q SCH ×2 (05:33→14:30)
[2017-12-03 05:56] LABS: INR 0.99 (0.87-1.13)
[2017-12-03 06:30] LABS: Calcium 9.4 mg/dL (8.4-10.2)
[2017-12-03] MEDS: APRESOLINE PO SCH ×3 (08:00→21:02)
[2017-12-03] MEDS ORDERED: HEPARIN/NS 5000 UNIT/500ML(CATH LAB) 1,000 ML IR ONE (08:37)
[2017-12-03] MEDS ORDERED: HEPARIN 10,000 UNITS/10 ML ONE (08:38)
[2017-12-03] MEDS ORDERED: NITROGLYCERIN SYRINGE 0 ML ONE (08:38)
[2017-12-03] MEDS ORDERED: VERSED ONE (08:38)
[2017-12-03] MEDS ORDERED: XYLOCAINE 2% INFILTRATI ONE (08:38)
[2017-12-03] MEDS ORDERED: SUBLIMAZE ONE (08:38)
[2017-12-03] MEDS ORDERED: CALAN ONE (08:38)
[2017-12-03] MEDS ORDERED: NACL 0.9% 250ML 250 ML ONE (08:55)
[2017-12-03] MEDS ORDERED: APRESOLINE ONE (09:50)
[2017-12-03] MEDS: APRESOLINE IV PRN (09:52)
--- NOTE | 2017-12-03 10:00 | Progress Note ---
Assessment and Plan Atypical chest pain Normal LVEF 2015 Normal MPI 2013 Mild luminal irregularities on cardiac cath today Non-specific troponin Elevated BNP secondary to renal failure ESRD o HD Systemic Hypertension Type II DM Hyperlipidemia Recommendations: No further cardiac work-up is needed Blood pressure control Subjective Date of service: 12/03/17 Principal diagnosis: Chest Pain Interval history: Patient underwent a LHC and RHC without complications Objective Vital Signs Temp Pulse Resp Resp BP BP Pulse Ox 12/03/17 07:36 98.8 F 64 20 147/69 93 12/03/17 07:00 68 12/03/17 04:31 68 134/59 93 12/03/17 04:30 98.0 F 69 20 134/59 91 12/03/17 04:27 60 93 12/03/17 04:26 97.8 F 62 20 131/55 95 12/03/17 00:36 97.9 F 61 134/65 94 12/02/17 22:00 20 12/02/17 21:46 68 137/63 12/02/17 21:45 18 12/02/17 19:43 97.5 F L 66 18 137/63 94 12/02/17 19:42 61 12/02/17 13:11 98.5 F 18 179/77 12/02/17 10:05 79 167/69 12/02/17 10:04 81 170/70 12/02/17 10:03 81 165/72 12/02/17 10:02 81 165/72 12/02/17 10:01 88 155/70 12/02/17 10:00 79 179/84 - Physical Examination General: No Apparent Distress HEENT: Positive: PERRL Neck: Positive: neck supple Cardiac: Positive: Reg Rate and Rhythm Lungs: Positive: Normal Exam Neuro: Positive: Grossly Intact Abdomen: Positive: Soft Skin: Positive: Clear Extremities: Absent: edema - Labs and Meds Coagulation 12/03/17 Range/Units 05:01 PT 13.6 (12.2-14.9) Sec. INR 0.99 (0.87-1.13) Comprehensive Metabolic Panel 12/03/17 Range/Units 05:01 Sodium 140 (137-145) mmol/L Potassium 4.7 (3.6-5.0) mmol/L Chloride 95.9 L (98-107) mmol/L Carbon Dioxide 25 (22-30) mmol/L BUN 64 H (9-20) mg/dL Creatinine 9.6 H (0.8-1.5) mg/dL Glucose 143 H (75-100) mg/dL Calcium 9.4 (8.4-10.2) mg/dL
[2017-12-03] MEDS: MORPHINE IV PRN ×2 (11:00→13:42)
[2017-12-03] MEDS: PEPCID PO SCH (12:30)
[2017-12-03] MEDS: PROCARDIA XL PO SCH (12:30)
[2017-12-03] MEDS: ALDOMET PO SCH (12:30)
[2017-12-03] MEDS: BABY ASPIRIN PO SCH (12:31)
--- NOTE | 2017-12-03 13:00 | Progress Note ---
Assessment and Plan Impression: * End stage renal disease on HD MWF * Headache, chronic * Chest pain -[facility] 12/03 - mild irregularities * Hypertension * Type II DM * Anemia secondary to ESRD * Secondary hyperparathyroidism * Medical noncompliance Plan: * Continue hemodialysis MWF * Cardiology recommendations noted * UF as tolerated * Analgesic therapy per primary team * Continue antiHTN medications * Renal diet * Stable for d/c from a renal standpoint Subjective Date of service: 12/03/17 Principal diagnosis: Chest Pain Interval history: Patient seen s/p [facility]. He has no complaints. Denies chest pain and SOB. Objective - Vital Signs Vital signs: Vital Signs - 12hr 12/03/17 12/03/17 12/03/17 04:26 04:27 04:30 Temperature 97.8 F 98.0 F Pulse Rate 62 60 69 Respiratory 20 20 Rate Respiratory Rate [Chest] Blood Pressure 131/55 134/59 Blood Pressure [Right] O2 Sat by Pulse 95 93 91 Oximetry 12/03/17 12/03/17 12/03/17 04:31 07:00 07:36 Temperature 98.8 F Pulse Rate 68 68 64 Respiratory 20 Rate Respiratory Rate [Chest] Blood Pressure 134/59 147/69 Blood Pressure [Right] O2 Sat by Pulse 93 93 Oximetry 12/03/17 12/03/17 12/03/17 10:00 10:30 11:00 Temperature 98.1 F Pulse Rate 71 67 Respiratory 18 Rate Respiratory 20 Rate [Chest] Blood Pressure Blood Pressure 149/81 153/77 [Right] O2 Sat by Pulse 98 Oximetry 12/03/17 12/03/17 12/03/17 11:30 12:00 12:39 Temperature 98.1 F Pulse Rate 68 66 68 Respiratory Rate Respiratory Rate [Chest] Blood Pressure Blood Pressure 163/77 173/81 174/80 [Right] O2 Sat by Pulse Oximetry - General Appearance General appearance: well-developed, well-nourished EENT: ATNC Respiratory: Present: Clear to Ascultation Cardiology: regular, S1S2 Gastrointestinal: normal, no tenderness, no distended Integumentary: no rash, warm and dry Neurologic: no focal deficit Musculoskeletal: other (no edema) Psychiatric: cooperative - Lab 12/01/17 05:25 12/03/17 05:01 Most recent lab results Calcium 9.4 mg/dL (8.4-10.2) 12/03/17 05:01 Phosphorus 7.40 mg/dL (2.5-4.5) H 12/01/17 09:43
--- NOTE | 2017-12-03 14:28 | Discharge Summary ---
Providers - Providers Date of Admission: 12/01/17 09:52 Attending physician: ERICK BAKER MD 12/01/17 10:17 Consult to Physician [CONS] Urgent Comment: Jasmin in office notified @ 11:55- [facility] Consulting Provider: CHETAN ROSENBERG Physician Instructions: Reason For Exam: end-stage renal dialysis day today 12/01/17 10:19 Consult to Physician [CONS] Urgent Comment: Hernandoha notified @ 11:35- [facility] Consulting Provider: EDEN CONWAY Physician Instructions: Reason For Exam: chest pain 12/01/17 12:34 Consult to Physician [CONS] Routine Comment: Consulting Provider: EDEN CONWAY Physician Instructions: Reason For Exam: chest pain, ESRD on HD 12/03/17 10:00 Consult to Cardiac Rehabilitation [CONS] Routine Reason For Exam: Cardiac Rehab Evaluation Primary care physician: DAMON VILLEGAS Hospitalization Reason for admission: chest pain, ESRD on HD Condition: Stable Pertinent studies: cardiac stress test Procedures: Cardiac cath Hospital course: 62-year-old male with past medical history significant for end-stage renal disease on hemodialysis M, W, F, diabetes mellitus type 2, hypertension presented to the emergency department complaining of mid substernal chest pain the last 2 days. Pain is sharp, intermittent, no radiation, 10 out of 10 in intensity, no associated shortness of breath or diaphoresis. Patient denied fever, chills, shortness of breath, palpitation, leg swelling. Patient is still complaining headache is chronic and usually happens after dialysis. patient was admitted to the floor for the management of chest pain, cardiac stress test and cardiac cath was done and showed luminal irregularities. cardiology consulted and recommend to continue medical management. Nephrology consulted and continued HD. Patient's chest pain subsided. patient was hemodynamically stable and discharged home in a stable condition. Disposition: -01 TO HOME OR SELFCARE Time spent for discharge: 31 minutes - Discharge Diagnoses (1) Accelerated hypertension Status: Acute (2) Cardiomyopathy Status: Acute Qualifiers: Cardiomyopathy type: unspecified Qualified Code(s): I42.9 - Cardiomyopathy , unspecified (3) Chest pain Status: Acute Qualifiers: Chest pain type: unspecified Qualified Code(s): R07.9 - Chest pain, unspecified (4) T2DM (type 2 diabetes mellitus) Status: Chronic Qualifiers: Diabetes mellitus senior living insulin use: without senior living use Diabetes mellitus complication status: with kidney complications Diabetes mellitus complication detail: with chronic kidney disease Chronic kidney disease stage : on chronic dialysis Qualified Code(s): E11.22 - Type 2 diabetes mellitus with diabetic chronic kidney disease; N18.6 - End stage renal disease; Z99.2 - Dependence on renal dialysis (5) Acute on chronic diastolic CHF (congestive heart failure) Status: Acute (6) Chronic kidney disease (CKD), hemodialysis preferred modality Status: Acute Core Measure Documentation - Palliative Care Palliative Care/ Comfort Measures: Not Applicable - Core Measures Any of the following diagnoses?: none Exam - Physical Exam Narrative exam: Not in cardiopulmonary distress. The patient appeared well nourished and normally developed. Vital signs as documented. Head exam is unremarkable. No scleral icterus . Neck is without jugular venous distension, thyromegaly, or carotid bruits. Lungs are clear to auscultation. Cardiac exam reveals regular rate and Rhythm. First and second heart sounds normal. No murmurs, rubs or gallops. Abdominal exam reveals normal bowel sounds, no masses, no organomegaly and no aortic enlargement. Extremities are nonedematous and both femoral and pedal pulses are normal. 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 No focal weakness. - Constitutional Vitals: Temp Pulse Resp BP Pulse Ox 98.1 F 68 18 174/80 98 12/03/17 12:00 12/03/17 12:39 12/03/17 10:30 12/03/17 12:39 12/03/17 10:30 Plan Activity: no restrictions Weight Bearing Status: Full Weight Bearing Diet: low salt, diabetic, renal Follow up with: ANTONETTE PETERS MD [Staff Physician] - 7 Days DAMON VILLEGAS MD [Primary Care Provider] - 7 Days Forms: CardCat PCI D/C Instructions Prescriptions: cloNIDine [Catapres] 0.2 mg PO BID #60 tablet
[2017-12-03] MEDS ORDERED: NACL 0.9 (PRIMING MACHINE ONLY DIALYSIS) MC ONE (15:11)
[2017-12-03] MEDS ORDERED: TYLENOL PO PRN (20:48)
[2017-12-03 20:49] VITALS: BP 166/85
[2017-12-03] MEDS ORDERED: TYLENOL #3 PO PRN (21:14)
--- NOTE | 2017-12-04 03:05 | Cardiac Catherization Report ---
LEFT HEART CATHETERIZATION AND RIGHT HEART CATHETERIZATION ORDERING PHYSICIAN: Denis Clark MD INDICATION FOR PROCEDURE: Chest pain, abnormal myocardial perfusion scan. PROCEDURES PERFORMED: 1. Selective left and right coronary angiography. 2. Left ventriculography. 3. Right heart catheterization with hemodynamic measurement and oxygen saturation run. 4. Deployment of a 5-Moldovan Mynx device. DESCRIPTION OF THE PROCEDURE: 1. After obtaining the consent, the patient was draped using sterile technique. 2. A 2% lidocaine was injected into the right groin. 3. A 5-Moldovan vascular sheath was inserted into the right common femoral artery using micropuncture technique. 4. An 8-Moldovan vascular sheath was inserted into the right common femoral vein using the micropuncture technique. 5. A 7-1/2-[place]-Kelly catheter was used to measure right-sided hemodynamics and perform oxygen saturation run. 6. A 5-Moldovan JL4 catheter was used to selectively engage the left coronary artery. 7. A 5-Moldovan JR4 catheter was used to hand inject left ventriculogram. 8. A 5-Moldovan 3DRC catheter was used to selectively engage the right coronary artery. 9. No complications occurred during the procedure. 10. Hemostasis was achieved at the end of the procedure using a 5-Moldovan Mynx device. SPECIMEN REMOVED: None. ESTIMATED BLOOD LOSS: Minimal. Physician/patient [id number] sedation start time: 9:27 a.m. Physician/patient [id number] sedation stop time: 9:54 a.m. Total sedation time was 27 minutes. FINDINGS: HEMODYNAMICS: 1. Mean pulmonary capillary wedge pressure is 70 mmHg. 2. Pulmonary artery systolic pressure of 43 mmHg and diastolic pressure of 40 mmHg. The mean pulmonary artery pressure is 28 mmHg. 3. Right ventricular systolic pressure is 47 mmHg and right ventricular end-diastolic pressure is 13 mmHg. 4. The mean right arterial pressure is 8 mmHg. 5. Aortic pressure is 161/76, LV systolic pressure 171 mmHg and LVEDP 18 mmHg. 6. Cardiac output 7.5 liters per minute, cardiac index 3.6 liters per minute per m sq. 7. Aortic saturation 95%. 8. Pulmonary artery saturation is 73%. 9. Right ventricular saturation is 74%. 10. Right atrial saturation is 75%. CARDIAC STRUCTURES: The left ventricle is normal in size and systolic function. The left ventricular ejection fraction is estimated at 55%. Normal wall motion is noted. CORONARY ANATOMY: 1. This is a right dominant circulation. 2. The left main is angiographically normal. 3. The LAD has mild nonobstructive diffuse luminal irregularities. 4. The ramus intermedius has mild nonobstructive diffuse luminal irregularities. 5. The left circumflex artery has mild nonobstructive diffuse luminal irregularities. 6. The right coronary artery is a dominant vessel with mild nonobstructive diffuse luminal irregularities. IMPRESSION: 1. Mild nonobstructive coronary artery disease. 2. Normal left ventricular size and systolic function. 3. Borderline elevated left and right-sided filling pressures. 4. Mild pulmonary hypertension. 5. Normal cardiac output. 6. No evidence of an intracardiac shunt. RECOMMENDATIONS: Continue current management and risk factor modifications. [facility]# [id number] IRENE/HARLEY
== END 2017-12-03 22:15 | disposition home or self-care (01) | DRG 286 ==
LOC: ED 04:40 → 4A 09:52
PROVIDERS: ADMIT Internal Medicine; ATTEND Internal Medicine
PROC: 5A1D70Z Performance of Urinary Filtration, Intermittent, Less than 6 Hours Per Day (ICD-10-PCS; 2017-12-01)
PROC: B2111ZZ Fluoroscopy of Multiple Coronary Arteries using Low Osmolar Contrast (ICD-10-PCS; principal; 2017-12-03)
PROC: B2151ZZ Fluoroscopy of Left Heart using Low Osmolar Contrast (ICD-10-PCS; 2017-12-03)
PROC: 5A1D70Z Performance of Urinary Filtration, Intermittent, Less than 6 Hours Per Day (ICD-10-PCS; 2017-12-03)
PROC: 4A023N6 Measurement of Cardiac Sampling and Pressure, Right Heart, Percutaneous Approach (ICD-10-PCS; 2017-12-03)
DX: R07.89 Other chest pain (principal); N18.6 End stage renal disease; I50.33 Acute on chronic diastolic (congestive) heart failure; N25.81 Secondary hyperparathyroidism of renal origin; I13.2 Hypertensive heart and chronic kidney disease with heart failure and with stage 5 chronic kidney disease, or end stage renal disease; I42.9 Cardiomyopathy, unspecified; I16.0 Hypertensive urgency; I25.10 Atherosclerotic heart disease of native coronary artery without angina pectoris; I27.20 Pulmonary hypertension, unspecified; Z88.0 Allergy status to penicillin; E11.22 Type 2 diabetes mellitus with diabetic chronic kidney disease; Z99.2 Dependence on renal dialysis; E78.5 Hyperlipidemia, unspecified; Z82.49 Family history of ischemic heart disease and other diseases of the circulatory system; R51 Headache; D63.1 Anemia in chronic kidney disease; Z91.19 Patient's noncompliance with other medical treatment and regimen
CPT/HCPCS: 36415; 71045; 78452; 80048; 80061; 80074; 82962; 83880; 84100; 84484; 85025; 85379; 85610; 85730; 93005; 93010; 93017; 93306; 93460; 96374; 96375; 96376; A9502; C1760; J0360; J1644; J2250; J2270; J2785; J3010; J7030; J7050; Q9967

== ENCOUNTER 2018-08-16 17:31 | Emergency (ER) | payer OTHER ==
[2018-08-16 18:04] LABS: Basophils # (Auto) 0.1 K/mm3 (0.0-0.1); Basophils % (Auto) 0.9 % (0.0-1.8); Eosinophils # (Auto) 0.2 K/mm3 (0.0-0.4); Eosinophils % (Auto) 3.5 % (0.0-4.3); Hematocrit 31.8 % (35.5-45.6); Hemoglobin 10.3 gm/dl (11.8-15.2); Lymphocytes # (Auto) 1.5 K/mm3 (1.2-5.4); Lymphocytes % (Auto) 24.7 % (13.4-35.0); Mean Corpuscular HGB Conc 32 % (32-34); Mean Corpuscular Volume 91 fl (84-94); Monocytes # (Auto) 0.6 K/mm3 (0.0-0.8); Monocytes % (Auto) 9.6 % (0.0-7.3); Platelet Count 289 K/mm3 (140-440); Red Blood Count 3.48 M/mm3 (3.65-5.03)
--- NOTE | 2018-08-16 18:17 | Emergency Department Report ---
ED Shortness of Breath HPI - General Chief Complaint: Dyspnea/Respdistress Stated Complaint: SOB/PCP SENT PATIENT Time Seen by Provider: 08/16/18 17:56 Source: patient Mode of arrival: Ambulatory Limitations: No Limitations - History of Present Illness Initial Comments: Patient is 63 years old male with history of end-stage renal disease on hemodialysis, Wednesday, Wednesday and Wednesday. Patient stated that he did not miss any dialysis recently. Patient also had history of hypertension and diabetes and congestive heart failure. Patient presented to the ER complaining of shortness of breath, patient stated that he went to see his broadcast news producer today and asked him to come to the emergency room for further workup. Patient denied any chest pain, fever, cough, nausea or vomiting. MD Complaint: shortness of breath -: Gradual Severity: moderate Known History Of: congestive heart failure Associated Symptoms: denies other symptoms - Related Data Home Medications Medication Instructions Recorded Confirmed Last Taken Esomeprazole Magnesium [NexIUM] 40 mg PO QDAY 06/23/17 06/15/18 06/22/17 Methyldopa [Aldomet] 500 mg PO BID 12/01/17 06/15/18 Unknown Cinacalcet HCl [Sensipar] 60 mg PO DAILY 03/21/18 06/15/18 Unknown Folic Acid/Vit B Complex and C 1 tab PO DAILY 03/21/18 06/15/18 Unknown [Renal-Amarilys Tablet] Furosemide [Lasix] 80 mg PO DAILY 03/21/18 06/15/18 Unknown Magnesium Oxide 500 mg PO DAILY 03/21/18 06/15/18 Unknown Metoprolol Tartrate 100 mg PO BID 03/21/18 06/15/18 Unknown Sevelamer Carbonate [Renvela] 800 mg PO TID 03/21/18 06/15/18 Unknown Sodium Bicarbonate 650 mg PO BID 03/21/18 06/15/18 Unknown glipiZIDE [Glipizide] 10 mg PO BID 03/21/18 06/15/18 06/15/18 Previous Rx's Medication Instructions Recorded Last Taken Type NIFEdipine XL [Procardia Xl] 90 mg PO QDAY #30 tablet 06/25/17 Unknown Rx hydrALAZINE [Apresoline TAB] 100 mg PO TID #90 tab 06/25/17 06/15/18 Rx Allergies Allergy/AdvReac Type Severity Reaction Status Date / Time Penicillins Allergy Unknown Verified 06/15/18 07:41 ED Review of Systems ROS: Stated complaint: SOB/PCP SENT PATIENT Other details as noted in HPI Comment: All other systems reviewed and negative Constitutional: denies: chills, fever Respiratory: orthopnea, shortness of breath, SOB with exertion, SOB at rest. denies: cough, wheezing Cardiovascular: denies: chest pain, palpitations, dyspnea on exertion Gastrointestinal: denies: abdominal pain, nausea, vomiting, diarrhea, constipation, hematemesis, melena, hematochezia Musculoskeletal: denies: back pain Neurological: denies: headache, weakness, numbness, paresthesias, confusion, abnormal gait ED Past Medical Hx - Past Medical History Previous Medical History?: Yes Hx Hypertension: Yes Hx Heart Attack/AMI: No (CHF with preserved ejection fraction 55%) Hx Congestive Heart Failure: Yes Hx Diabetes: Yes Hx Deep Vein Thrombosis: Yes Hx Renal Disease: Yes (CKD, Dialysis M-W-F) Hx Asthma: No Hx COPD: No Hx HIV: No Additional medical history: Anemia - Surgical History Past Surgical History?: Yes Additional Surgical History: Cataract surgery - Social History Smoking Status: Former Smoker Substance Use Type: None - Medications Home Medications: Home Medications Medication Instructions Recorded Confirmed Last Taken Type Esomeprazole Magnesium [NexIUM] 40 mg PO QDAY 06/23/17 06/15/18 06/22/17 History NIFEdipine XL [Procardia Xl] 90 mg PO QDAY #30 tablet 06/25/17 06/15/18 Unknown Rx hydrALAZINE [Apresoline TAB] 100 mg PO TID #90 tab 06/25/17 06/15/18 06/15/18 Rx Methyldopa [Aldomet] 500 mg PO BID 12/01/17 06/15/18 Unknown History Cinacalcet HCl [Sensipar] 60 mg PO DAILY 03/21/18 06/15/18 Unknown History Folic Acid/Vit B Complex and C 1 tab PO DAILY 03/21/18 06/15/18 Unknown History [Renal-Amarilys Tablet] Furosemide [Lasix] 80 mg PO DAILY 03/21/18 06/15/18 Unknown History Magnesium Oxide 500 mg PO DAILY 03/21/18 06/15/18 Unknown History Metoprolol Tartrate 100 mg PO BID 03/21/18 06/15/18 Unknown History Sevelamer Carbonate [Renvela] 800 mg PO TID 03/21/18 06/15/18 Unknown History Sodium Bicarbonate 650 mg PO BID 03/21/18 06/15/18 Unknown History glipiZIDE [Glipizide] 10 mg PO BID 03/21/18 06/15/18 06/15/18 History ED Physical Exam - General Limitations: No Limitations General appearance: alert, in no apparent distress - Head Head exam: Present: atraumatic, normocephalic, normal inspection - Eye Eye exam: Present: normal appearance - ENT ENT exam: Present: normal exam, normal orophraynx, mucous membranes moist - Neck Neck exam: Present: normal inspection, full ROM. Absent: tenderness, meningismus, lymphadenopathy, thyromegaly - Respiratory Respiratory exam: Present: normal lung sounds bilaterally - Cardiovascular Cardiovascular Exam: Present: regular rate, normal heart sounds - GI/Abdominal GI/Abdominal exam: Present: soft, normal bowel sounds. Absent: distended, tenderness, guarding, rebound, rigid, organomegaly, mass, bruit, pulsatile mass, hernia - Extremities Exam Extremities exam: Present: normal inspection, full ROM, normal capillary refill. Absent: pedal edema, calf tenderness - Back Exam Back exam: Present: normal inspection, full ROM. Absent: tenderness, CVA tenderness (R), CVA tenderness (L), muscle spasm, paraspinal tenderness, vertebral tenderness - Neurological Exam Neurological exam: Present: alert, oriented X3, CN II-XII intact, normal gait, reflexes normal - Skin Skin exam: Present: warm, intact, normal color ED Course Vital Signs 08/16/18 08/16/18 08/16/18 17:34 18:14 18:16 Temperature 97.8 F Pulse Rate 63 62 61 Respiratory 20 15 19 Rate Blood Pressure 158/77 Blood Pressure [Right] O2 Sat by Pulse 94 89 95 Oximetry 08/16/18 08/16/18 08/16/18 18:31 18:45 19:20 Temperature 98 F Pulse Rate 59 L 59 L Respiratory 11 L 16 15 Rate Blood Pressure 163/77 163/77 Blood Pressure 166/80 [Right] O2 Sat by Pulse 95 92 96 Oximetry 08/16/18 20:00 Temperature Pulse Rate 60 Respiratory 15 Rate Blood Pressure 156/74 Blood Pressure [Right] O2 Sat by Pulse 92 Oximetry ED Medical Decision Making - Lab Data Result diagrams: 08/16/18 17:51 08/16/18 17:51 - EKG Data -: EKG Interpreted by [place] EKG shows normal: sinus rhythm Rate: normal - EKG Data Interpretation: no acute changes - Radiology Data Radiology results: report reviewed Referring Physician: NUSRAT THOMPSON Patient Name: LING GORDON Date of : 1955 Sex: Male Report Date: 2018-08-16 Report Status: Finalized Findings [facility] [address] [place] [address] XRay Report Signed Patient: LING GORDON MR#: [id number] : 1955 Acct:[id number] Age/Sex: 63 / M ADM Date: 08/16/18 Loc: ED Attending Dr: Ordering Physician: NUSRAT THOMPSON Date of Service: 08/16/18 Procedure(s): XR chest 1V ap Accession Number(s): [id number] cc: NUSRAT THOMPSON Fluoro Time In Minutes: FINAL REPORT EXAM: XR CHEST 1V AP HISTORY: sob TECHNIQUE: upright single view chest PRIORS: Comparison is dated March 21, 2018 FINDINGS: Cardiac and mediastinal contours are unremarkable. No focal pulmonary infiltrate is identified. No pleural fluid collection seen. Pulmonary vasculature is unremarkable. Vascular stent noted in the left axillary region. IMPRESSION: No acute findings in the chest Transcribed By: [facility] Dictated By: SAURAV IBARRA MD Electronically Authenticated By: SAURAV IBARRA MD Signed Date/Time: 08/16/181918 DD/ 20 TD/TT: 08/16/181920 - Medical Decision Making Patient is 63 years old male with history of end-stage renal disease on hemodialysis, Wednesday, Wednesday and Wednesday. Patient stated that he did not miss any dialysis recently. Patient also had history of hypertension and diabetes and congestive heart failure. Patient presented to the ER complaining of shortness of breath, patient stated that he went to see his broadcast news producer today and asked him to come to the emergency room for further workup. Patient denied any chest pain, fever, cough, nausea or vomiting. Patient stated that he is feeling better. EKG is unremarkable for acute findings. Chest x-rays negative. Patient had negative cardiac cath in 2015, 2 sets of troponin which is negative. D-dimer is 175. Patient will be discharged home to follow up with his broadcast news producer and his statistical financial analyst. Patient also advised to keep his appointment for his dialysis tomorrow. Patient agreed with the plan. Critical care attestation.: If time is entered above; I have spent that time in minutes in the direct care of this critically ill patient, excluding procedure time. ED Disposition Clinical Impression: Shortness of breath Disposition: DC-01 TO HOME OR SELFCARE Is pt being admited?: No Condition: Stable Instructions: Dyspnea (ED) Referrals: PRIMARY CARE, [Primary Care Provider] - 3-5 Days
[2018-08-16 18:35] LABS: Alanine Aminotransferase 12 units/L (7-56); Albumin 4.2 g/dL (3.9-5)
[2018-08-16 18:51] LABS: Bilirubin,Direct < 0.2 mg/dL (0-0.2)
[2018-08-16 19:03] LABS: Calcium 8.9 mg/dL (8.4-10.2)
[2018-08-16 19:04] LABS: Chol/HDL Ratio 2.04 %; HDL Cholesterol 43 mg/dL (40-59); LDL Cholesterol,Direct 38 mg/dL (50-130)
--- NOTE | 2018-08-16 19:19 | XRay Report ---
FINAL REPORT EXAM: XR CHEST 1V AP HISTORY: sob TECHNIQUE: upright single view chest PRIORS: Comparison is dated March 21, 2018 FINDINGS: Cardiac and mediastinal contours are unremarkable. No focal pulmonary infiltrate is identified. No pleural fluid collection seen. Pulmonary vasculature is unremarkable. Vascular stent noted in the le ft axillary region. IMPRESSION: No acute findings in the chest
[2018-08-16 22:20] VITALS: BP 165/90
== END 2018-08-16 22:40 | disposition home or self-care (01) ==
LOC: ED 17:31
DX: R06.02 Shortness of breath (principal); I11.0 Hypertensive heart disease with heart failure; I50.9 Heart failure, unspecified; E11.9 Type 2 diabetes mellitus without complications; E11.22 Type 2 diabetes mellitus with diabetic chronic kidney disease; I13.0 Hypertensive heart and chronic kidney disease with heart failure and stage 1 through stage 4 chronic kidney disease, or unspecified chronic kidney disease; N18.9 Chronic kidney disease, unspecified; Z86.2 Personal history of diseases of the blood and blood-forming organs and certain disorders involving the immune mechanism; Z87.891 Personal history of nicotine dependence; Z79.899 Other long term (current) drug therapy; Z88.0 Allergy status to penicillin
CPT/HCPCS: 36415; 71045; 80048; 80061; 80076; 84484; 85025; 85379; 93005; 93010

== ENCOUNTER 2019-01-19 11:27 | Emergency (ER) | payer OTHER ==
--- NOTE | 2019-01-19 11:40 | Emergency Department Report ---
Blank Doc - Documentation Documentation: This is a 63-year-old male that presents with chest pain and SOB. HX of CHF. This initial assessment/diagnostic orders/clinical plan/treatment(s) is/are subject to change based on patient's health status, clinical progression and re- assessment by fellow clinical providers in the ED. Further treatment and workup at subsequent clinical providers discretion. Patient/guardians urged not to elope from the ED as their condition may be serious if not clinically assessed and managed. Initial orders include: 1- Patient sent to MAIN ED for further evaluation and treatment 2- labs 3- EKG 4- CXR
--- NOTE | 2019-01-19 12:26 | XRay Report ---
ROUTINE CHEST, TWO VIEWS: HISTORY: chest pain. The trachea, heart, mediastinal contour, lung brennan and bony thorax are unremarkable. Left subclavian/axillary vascular stent is noted. IMPRESSION: No acute cardiopulmonary process identified.
[2019-01-19 12:55] LABS: Hematocrit 36.8 % (35.5-45.6); Hemoglobin 12.1 gm/dl (11.8-15.2); Mean Corpuscular HGB Conc 33 % (32-34); Mean Corpuscular Volume 93 fl (84-94); Platelet Count 304 K/mm3 (140-440); Red Blood Count 3.94 M/mm3 (3.65-5.03)
[2019-01-19 13:02] LABS: Calcium 7.4 mg/dL (8.4-10.2)
[2019-01-19 13:05] LABS: INR 1.12 (0.87-1.13)
[2019-01-19 13:06] LABS: Partial Thromboplastin Time 33.3 Sec. (24.2-36.6)
[2019-01-19 13:11] LABS: Red Cell Distribution Width 22.5 % (13.2-15.2)
[2019-01-19 13:20] LABS: Chol/HDL Ratio 2.33 %
[2019-01-19 14:02] LABS: Anisocytosis 1+; Basophils % (Manual) 0 % (0.0-1.8); Eosinophils % (Manual) 0 % (0.0-4.3); Macrocytosis 1+; Ovalocytes Few; Platelet Estimate Consistent w Auto; Total Cells Counted 100
--- NOTE | 2019-01-19 14:20 | Emergency Department Report ---
ED Chest Pain HPI - General Chief Complaint: Chest Pain Stated Complaint: CHEST PAIN Time Seen by Provider: 01/19/19 11:37 Source: patient Mode of arrival: Ambulatory Limitations: No Limitations - History of Present Illness Initial Comments: 63-year-old male presents to the emergency department with complaint of some midsternal and left-sided chest pain that occurred this morning but has since resolved. Patient says that he just took his normal home medications for his symptoms. He denies any shortness of breath, fever, nausea, vomiting or diaphoresis. The patient has end-stage renal disease on hemodialysis on Wednesday/Wednesday/Wednesday and says that he did have dialysis yesterday. His primary care physician is [facility]. His principal associate is Dr. Flores. 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 No recent travel or sick contacts at home. - Related Data Home Medications Medication Instructions Recorded Confirmed Last Taken Esomeprazole Magnesium [NexIUM] 40 mg PO QDAY 06/23/17 06/15/18 06/22/17 Methyldopa [Aldomet] 500 mg PO BID 12/01/17 06/15/18 Unknown Cinacalcet HCl [Sensipar] 60 mg PO DAILY 03/21/18 06/15/18 Unknown Folic Acid/Vit B Complex and C 1 tab PO DAILY 03/21/18 06/15/18 Unknown [Renal-Amarilys Tablet] Furosemide [Lasix TAB] 80 mg PO DAILY 03/21/18 06/15/18 Unknown Magnesium Oxide 500 mg PO DAILY 03/21/18 06/15/18 Unknown Metoprolol Tartrate 100 mg PO BID 03/21/18 06/15/18 Unknown Sevelamer Carbonate [Renvela] 800 mg PO TID 03/21/18 06/15/18 Unknown Sodium Bicarbonate 650 mg PO BID 03/21/18 06/15/18 Unknown glipiZIDE [Glipizide] 10 mg PO BID 03/21/18 06/15/18 06/15/18 Previous Rx's Medication Instructions Recorded Last Taken Type NIFEdipine XL [Procardia Xl] 90 mg PO QDAY #30 tablet 06/25/17 Unknown Rx hydrALAZINE [Apresoline TAB] 100 mg PO TID #90 tab 06/25/17 06/15/18 Rx Allergies Allergy/AdvReac Type Severity Reaction Status Date / Time lisinopril Allergy Angioedema Verified 01/19/19 11:28 Penicillins Allergy Unknown Verified 06/15/18 07:41 Heart Score - HEART Score History: Moderately suspicious EKG: Non-specific Age: > 65 Risk factors: 1-2 risk factors Troponin: 1-3x normal limit HEART Score: 6 - Critical Actions Critical Actions: 4-6 pts:12-16.6% risk of adverse cardiac event. Should be admitted ED Review of Systems ROS: Stated complaint: CHEST PAIN Other details as noted in HPI Comment: All other systems reviewed and negative Constitutional: denies: chills, fever Eyes: denies: eye pain, vision change ENT: denies: ear pain, throat pain Respiratory: denies: cough, shortness of breath Cardiovascular: chest pain. denies: palpitations Gastrointestinal: denies: abdominal pain, vomiting Genitourinary: denies: dysuria, frequency Musculoskeletal: denies: back pain, arthralgia Skin: denies: rash, lesions Neurological: denies: headache, weakness ED Past Medical Hx - Past Medical History Hx Hypertension: Yes Hx Heart Attack/AMI: No (CHF with preserved ejection fraction 55%) Hx Congestive Heart Failure: Yes Hx Diabetes: Yes Hx Deep Vein Thrombosis: Yes Hx Renal Disease: Yes (CKD, Dialysis -W-) Hx Asthma: No Hx COPD: No Hx HIV: No Additional medical history: Anemia - Surgical History Additional Surgical History: Cataract surgery - Social History Smoking Status: Never Smoker Substance Use Type: None - Medications Home Medications: Home Medications Medication Instructions Recorded Confirmed Last Taken Type Esomeprazole Magnesium [NexIUM] 40 mg PO QDAY 06/23/17 06/15/18 06/22/17 History NIFEdipine XL [Procardia Xl] 90 mg PO QDAY #30 tablet 06/25/17 06/15/18 Unknown Rx hydrALAZINE [Apresoline TAB] 100 mg PO TID #90 tab 06/25/17 06/15/18 06/15/18 Rx Methyldopa [Aldomet] 500 mg PO BID 12/01/17 06/15/18 Unknown History Cinacalcet HCl [Sensipar] 60 mg PO DAILY 03/21/18 06/15/18 Unknown History Folic Acid/Vit B Complex and C 1 tab PO DAILY 03/21/18 06/15/18 Unknown History [Renal-Amarilys Tablet] Furosemide [Lasix TAB] 80 mg PO DAILY 03/21/18 06/15/18 Unknown History Magnesium Oxide 500 mg PO DAILY 03/21/18 06/15/18 Unknown History Metoprolol Tartrate 100 mg PO BID 03/21/18 06/15/18 Unknown History Sevelamer Carbonate [Renvela] 800 mg PO TID 03/21/18 06/15/18 Unknown History Sodium Bicarbonate 650 mg PO BID 03/21/18 06/15/18 Unknown History glipiZIDE [Glipizide] 10 mg PO BID 03/21/18 06/15/18 06/15/18 History ED Physical Exam - General Limitations: No Limitations - Other Other exam information: GENERAL: The patient is well-developed well-nourished. HENT: Normocephalic. Atraumatic. Patient has moist mucous membranes. EYES: Extraocular motions are intact. NECK: Supple. Trachea is midline. CHEST/LUNGS: Clear to auscultation. There is no respiratory distress noted. HEART/CARDIOVASCULAR: Regular. There is no tachycardia. There is no murmur. ABDOMEN: Abdomen is soft, nontender. Patient has normal bowel sounds. There is no abdominal distention. SKIN: Skin is warm and dry. NEURO: The patient is awake, alert, and oriented. The patient is cooperative. The patient has no focal neurologic deficits. The patient has normal speech. MUSCULOSKELETAL: There is no tenderness or deformity. There is no evidence of acute injury. ED Course Vital Signs 01/19/19 01/19/19 01/19/19 11:38 12:58 13:23 Temperature 98.4 F Pulse Rate 64 Respiratory 18 20 18 Rate Blood Pressure 133/66 O2 Sat by Pulse 95 100 94 Oximetry 01/19/19 01/19/19 01/19/19 13:30 13:45 14:01 Temperature Pulse Rate 59 L 62 63 Respiratory 13 16 19 Rate Blood Pressure 132/65 122/62 122/62 O2 Sat by Pulse 98 98 98 Oximetry 01/19/19 01/19/19 01/19/19 14:15 14:31 14:45 Temperature Pulse Rate 61 60 59 L Respiratory 17 15 14 Rate Blood Pressure 127/65 134/67 139/69 O2 Sat by Pulse 99 99 99 Oximetry 01/19/19 16:57 Temperature 97.7 F Pulse Rate Respiratory Rate Blood Pressure O2 Sat by Pulse Oximetry - Consultations Consultation #1: I spoke with MAGI Antonio for [facility], who says that the patient had a recent heart catheterization done showing nonobstructive disease and therefore they do not feel that the patient requires admission at this time with resolution of his chest pain as they would not plan to do any stress test or any significant further workup. He can follow up outpatient. They equate the patient's slight elevation in his troponin level to his end-stage renal disease as opposed to coronary artery disease. 01/19/19 14:20 VINAYAK score - Vinayak Score Age > 65: (0) No Aspirin use within the Past 7 Days: (0) No 3 or more CAD Risk Factors: (1) Yes 2 or more Angina events in past 24 hrs: (0) No Known CAD with more than 50% Stenosis: (0) No Elevated Cardiac Markers: (1) Yes ST Deviation Greater than 0.5mm: (0) No VINAYAK Score: 2 ED Medical Decision Making - Lab Data Result diagrams: 01/19/19 12:12 01/19/19 12:12 - EKG Data -: EKG Interpreted by Me EKG shows normal: sinus rhythm, axis (left axis deviation), intervals (prolonged ID interval, slight prolongation of QT and QTC), QRS complexes (left anterior fascicular block, LVH), ST-T waves Rate: normal - EKG Data When compared to previous EKG there are: no significant change Interpretation: unchanged when compared t (08/18/18) - Radiology Data Radiology results: report reviewed, image reviewed interpreted by me: Chest x-ray does not show any acute process. There are no pleural effusions, obvious pneumonia and there is no pneumothorax. PROCEDURE: NM LUNG SCAN PERF/VENT HISTORY: CP, rule out PE FINDINGS: Ventilation/perfusion scan was performed following the injection of 4.11 mCi technetium 99m labeled macroaggregated albumin and the inhalation of 26.2 mCi xenon-133. Correlation is made to the chest x-ray of earlier in the day as well as prior VQ scan of March 23, 2020 These images demonstrate that both ventilation and perfusion are within normal limits. Examination is low probability for pulmonary thromboembolic disease. IMPRESSION: Low probability for pulmonary thromboembolic disease This document is electronically signed by Nahum Blas MD., January 19 2019 03:45:51 PM ET Transcribed By: RACHEL Dictated By: NAHUM BLAS MD Electronically Authenticated By: NAHUM BLAS MD Signed Date/Time: 01/19/19 1547 - Medical Decision Making Patient presents to the emergency department with a complaint of some chest pain that started earlier today but has since resolved. Chest x-ray did not show any pleural effusions, pneumonia, pneumothorax, focal consolidation, or any other acute process. Patient's labs show his ESRD, some hyperglycemia and an elevated troponin. The elevated troponin is most likely secondary to his ESRD instead of signs of acute CAD. EKG did not show any signs of STEMI and is unchanged from previous. I spoke with the patient's cardiology service who says that he has had a recent cardiac catheterization that showed nonobstructive disease and that there would not be any further stress test or catheterization done. They feel that the elevated troponin is also secondary to the renal failure and not indicative of any acute cardiac process or NSTEMI. For these reasons, they feel the patient is safe for discharge home. Prior to discharge, I sent the patient for a VQ scan to make sure that a pulmonary and was was not the source of the patient's previous symptoms but it did result as low probability for a PE. The patient has been instructed to follow up with his primary care physician and principal associate in the next few days and to continue his normal dialysis regimen. He will return to the ER if any worsening of his symptoms or any acute distress. - Differential Diagnosis volume overload, CHF, WA, PE, costochondritis Critical Care Time: No Critical care attestation.: If time is entered above; I have spent that time in minutes in the direct care of this critically ill patient, excluding procedure time. ED Disposition Clinical Impression: ESRD on hemodialysis Chest pain Qualifiers: Chest pain type: unspecified Qualified Code(s): R07.9 - Chest pain, unspecified Disposition: DC-01 TO HOME OR SELFCARE Is pt being admited?: No Condition: Stable Instructions: Chest Pain (ED), End-Stage Kidney Disease (ED) Additional Instructions: Please continue with your normal dialysis regimen. Follow-up with your primary care physician and principal associate in the next few days. Return to the emergency Department with any worsening of your symptoms or any acute distress. Referrals: RIANA GUTIERREZ MD [Staff Physician] - 3-5 Days [facility] [Outside] - 3-5 Days Time of Disposition: 16:13
--- NOTE | 2019-01-19 15:47 | Nuclear Medicine Report ---
PROCEDURE: NM LUNG SCAN PERF/VENT HISTORY: CP, rule out PE FINDINGS: Ventilation/perfusion scan was performed following the injection of 4.11 mCi technetium 99m labeled macroaggregated albumin and the inhalation of 26.2 mCi xenon-133. Correlation is made to the chest x-ray of earlier in the day as well as prior VQ scan of March 23, 2020 These images demonstrate that both ventilation and perfusion are within normal limits. Examination is low probability for pulmonary thromboembolic disease. IMPRESSION: Low probability for pulmonary thromboembolic disease This document is electronically signed by Nahum Blas MD., January 19 2019 03:45:51 PM ET
[2019-01-19 16:57] VITALS: BP 139/69
== END 2019-01-19 17:07 | disposition home or self-care (01) ==
LOC: ED 11:27
DX: R07.2 Precordial pain (principal); I13.2 Hypertensive heart and chronic kidney disease with heart failure and with stage 5 chronic kidney disease, or end stage renal disease; I50.9 Heart failure, unspecified; E11.22 Type 2 diabetes mellitus with diabetic chronic kidney disease; N18.9 Chronic kidney disease, unspecified; Z99.2 Dependence on renal dialysis; Z86.2 Personal history of diseases of the blood and blood-forming organs and certain disorders involving the immune mechanism; Z86.718 Personal history of other venous thrombosis and embolism; Z88.0 Allergy status to penicillin; Z88.8 Allergy status to other drugs, medicaments and biological substances
CPT/HCPCS: 36415; 71046; 78582; 80048; 80061; 84484; 85007; 85025; 85610; 85730; 93005; 93010; 99284; A9540; A9558

== ENCOUNTER 2019-05-08 18:06 | Observation (INO) | payer MEDICARE, OTHER ==
[2019-05-08 19:03] LABS: Albumin 3.8 g/dL (3.9-5); Calcium 10.4 mg/dL (8.4-10.2)
[2019-05-08 19:07] LABS: Basophils % (Auto) 0.4 % (0.0-1.8); Eosinophils # (Auto) 0.2 K/mm3 (0.0-0.4); Hematocrit 22.5 % (35.5-45.6); Hemoglobin 7.4 gm/dl (11.8-15.2); Lymphocytes # (Auto) 1.4 K/mm3 (1.2-5.4); Lymphocytes % (Auto) 14.9 % (13.4-35.0); Mean Corpuscular HGB Conc 33 % (32-34); Mean Corpuscular Volume 91 fl (84-94); Monocytes # (Auto) 0.6 K/mm3 (0.0-0.8); Monocytes % (Auto) 6.3 % (0.0-7.3); Platelet Count 372 K/mm3 (140-440); Red Blood Count 2.46 M/mm3 (3.65-5.03); Red Cell Distribution Width 16.8 % (13.2-15.2)
--- NOTE | 2019-05-08 19:07 | XRay Report ---
CHEST 2 VIEWS INDICATION: Dyspnea. COMPARISON: 01/19/2019. FINDINGS: Support devices: None. Heart: Mild cardiomegaly. Lungs/Pleura: Mild/moderate interstitial/airspace disease greatest the mid and lower zones. No sign ificant pleural effusion. IMPRESSION: Edema versus atypical infection. Edema is favored. Signer Name: Martir Hernandez MD Signed: 05/08/2019 7:03 PM Workstation Name: [id number]
[2019-05-08] MEDS ORDERED: CALCIUM GLUCONATE 1,000 MG in SODIUM CHLORIDE 0.9% 100 ML IV ONE (21:46)
--- NOTE | 2019-05-08 22:00 | Emergency Department Report ---
HPI - General Chief Complaint: Dyspnea/Respdistress Time Seen by Provider: 05/08/19 21:44 - HPI HPI: Alc[place] 22 The pt is a 63 y/o M p/w a cc of SOB. The pt states he is on home O2 but does not have portable O2. The pt states he was going to dialysis without his O2 when he began to feel SOB. The pt states he came to the ED instead of going to HD. The pt states he feels ok now regarding his breathing since he's on O2. Pt c/o occ body aches ED Past Medical Hx - Past Medical History Previous Medical History?: Yes Hx Hypertension: Yes Hx Congestive Heart Failure: Yes (CHF with preserved ejection fraction 55%) Hx Diabetes: Yes Hx Deep Vein Thrombosis: Yes Hx Renal Disease: Yes (CKD, Dialysis M-W-F) Additional medical history: Anemia - Surgical History Past Surgical History?: Yes Additional Surgical History: Cataract surgery - Family History Family history: no significant - Social History Smoking Status: Former Smoker (none x 10 years) Substance Use Type: None (denies illicit drug use) - Medications Home Medications: Home Medications Medication Instructions Recorded Confirmed Last Taken Type Esomeprazole Magnesium [NexIUM] 40 mg PO QDAY 06/23/17 06/15/18 06/22/17 History NIFEdipine XL [Procardia Xl] 90 mg PO QDAY #30 tablet 06/25/17 06/15/18 Unknown Rx hydrALAZINE [Apresoline TAB] 100 mg PO TID #90 tab 06/25/17 06/15/18 06/15/18 Rx Methyldopa [Aldomet] 500 mg PO BID 12/01/17 06/15/18 Unknown History Cinacalcet HCl [Sensipar] 60 mg PO DAILY 03/21/18 06/15/18 Unknown History Folic Acid/Vit B Complex and C 1 tab PO DAILY 03/21/18 06/15/18 Unknown History [Renal-Amarilys Tablet] Furosemide [Lasix TAB] 80 mg PO DAILY 03/21/18 06/15/18 Unknown History Magnesium Oxide 500 mg PO DAILY 03/21/18 06/15/18 Unknown History Metoprolol Tartrate 100 mg PO BID 03/21/18 06/15/18 Unknown History Sevelamer Carbonate [Renvela] 800 mg PO TID 03/21/18 06/15/18 Unknown History Sodium Bicarbonate 650 mg PO BID 03/21/18 06/15/18 Unknown History glipiZIDE [Glipizide] 10 mg PO BID 03/21/18 06/15/18 06/15/18 History ED Review of Systems ROS: Stated complaint: SOB/BHUPENDRA Other details as noted in HPI Constitutional: no symptoms reported Eyes: denies: eye pain ENT: denies: throat pain Respiratory: shortness of breath Endocrine: no symptoms reported Gastrointestinal: denies: abdominal pain Genitourinary: denies: testicular pain Musculoskeletal: back pain, myalgia Neurological: denies: headache Physical Exam - Physical Exam Vital Signs: Vital Signs 05/08/19 05/08/19 18:15 21:16 Temperature 98.2 F Pulse Rate 65 89 Respiratory 22 14 Rate Blood Pressure 119/63 Blood Pressure 133/72 [Left] O2 Sat by Pulse 98 100 Oximetry Physical Exam: GEN: WDWN M lying on stretcher in NAD HEENT: EOMI NECK: Trachea midline LUNGS: crackles at Righrt base. No resp Distress CV: RRR no m/r/g ABD: S/NT/ND SKIN: No Diaphoresis NEURO: GCS 15 MS: no evidence of acute injury ED Course Vital Signs 05/08/19 05/08/19 18:15 21:16 Temperature 98.2 F Pulse Rate 65 89 Respiratory 22 14 Rate Blood Pressure 119/63 Blood Pressure 133/72 [Left] O2 Sat by Pulse 98 100 Oximetry - Consultations Consultation #1: 05/08/19 21:56 Nephrology paged 05/08/19 22:19 case d/w Dr Martinez- nuvia Hay 30-45gm. Will arrange for HD in AM ED Medical Decision Making - Lab Data Result diagrams: 05/08/19 18:31 05/08/19 18:31 Laboratory Tests 05/08/19 05/08/19 18:31 18:31 WBC 9.2 RBC 2.46 L Hgb 7.4 L Hct 22.5 L MCV 91 MCH 30 MCHC 33 RDW 16.8 H Plt Count 372 Lymph % (Auto) 14.9 Jones % (Auto) 6.3 Eos % (Auto) 2.0 Baso % (Auto) 0.4 Lymph # 1.4 Jones # 0.6 Eos # 0.2 Baso # 0.0 Seg Neutrophils % 76.4 H Seg Neutrophils # 7.1 Sodium 139 Potassium 5.6 H Chloride 95.7 L Carbon Dioxide 22 Anion Gap 27 BUN 63 H Creatinine 9.8 H Estimated GFR 7 BUN/Creatinine Ratio 6 Glucose 179 H Calcium 10.4 H Total Bilirubin 0.60 AST 7 ALT 7 Alkaline Phosphatase 104 Total Protein 8.4 H Albumin 3.8 L Albumin/Globulin Ratio 0.8 - EKG Data -: EKG Interpreted by Me EKG shows normal: sinus rhythm Rate: normal - EKG Data When compared to previous EKG there are: no significant change Interpretation: unchanged when compared t (01/19/19) - Radiology Data Radiology results: report reviewed (CXR), image reviewed (CXR) interpreted by me: CXR- sl diffuse haziness. no ptx [facility] [address] [place] [address] XRay Report Signed Patient: LING GORDON MR#: [id number] : 1955 Acct:[id number] Age/Sex: 63 / M ADM Date: 05/08/19 Loc: ED Attending Dr: Ordering Physician: TAWANNA ESQUIVEL MD Date of Service: 05/08/19 Procedure(s): XR chest routine 2V Accession Number(s): [id number] cc: TAWANNA ESQUIVEL MD Fluoro Time In Minutes: CHEST 2 VIEWS INDICATION: Dyspnea. COMPARISON: 01/19/2019. FINDINGS: Support devices: None. Heart: Mild cardiomegaly. Lungs/Pleura: Mild/moderate interstitial/airspace disease greatest the mid and lower zones. No significant pleural effusion. IMPRESSION: Edema versus atypical infection. Edema is favored. Signer Name: Martir Hernandez MD Signed: 05/08/2019 7:03 PM Workstation Name: [id number] Transcribed By: ES Dictated By: Martir Hernandez MD Electronically Authenticated By: Martir Hernandez MD Signed Date/Time: 05/08/191902 DD/ 01 TD/TT: - Differential Diagnosis ESRD Critical care attestation.: If time is entered above; I have spent that time in minutes in the direct care o f this critically ill patient, excluding procedure time. ED Disposition Clinical Impression: Pulmonary edema, ESRD needing dialysis, Hyperkalemia Disposition: DC- OP ADMIT IP TO THIS HOSP Is pt being admited?: Yes Does the pt Need Aspirin: Yes Condition: Fair Instructions: Pulmonary Edema (ED) Referrals: PRIMARY CARE,MD [Primary Care Provider] - 3-5 Days Time of Disposition: 22:12 (Hospitalist paged (Dr Coronado))
[2019-05-08] MEDS ORDERED: SODIUM POLYSTYRENE 15 GM/60 ML ORAL LIQD PO ONE (22:18)
[2019-05-08] MEDS ORDERED: SODIUM BICARB 8.4% 50 MEQ/50 ML SYRINGE IV ONE (22:18)
[2019-05-08] MEDS ORDERED: DEXTROSE 50% IN WATER (25GM) 50 ML SYRINGE IV PRN (22:55)
[2019-05-08] MEDS ORDERED: ONDANSETRON 4 MG/2 ML INJ IV PRN (22:55)
[2019-05-08] MEDS ORDERED: ALBUTEROL 2.5 MG/3 ML NEBU IH PRN (22:55)
--- NOTE | 2019-05-08 23:07 | History and Physical Report ---
<EVERTON BARNEY - Last Filed: 05/08/19 23:41> History of Present Illness Date of examination: 05/08/19 Date of admission: 05/08/2019 Chief complaint: SOB/ fluid overload History of present illness: 63-year-old -[place] male with history of CHF with EF 55%, hypertension, DM 2, DVT, ESRD on HD, chronic anemia, chronic respiratory failure on home O2 who presents to the [facility] ED with complaints of shortness of breath. Patient states that he was last dialyzed on 05/05/19. He was unable to receive dialysis today because he forgot to set up transportation. He attempted to take the bus but became extremely short of breath with minimal exertion so he returned home. Patient continue to wear his supplemental oxygen with no improvement and decided to come into the ED for further evaluation and treatment Past History Past Medical History: anemia, diabetes, dialysis (M/W/F), DVT, ESRD, heart failure (EF 55%), hypertension, other (chronic respiratory failure) Past Surgical History: Other (Cataract surgery, AV Fistula) Social history: Lives alone, other (former smoker) Family history: no significant family history Medications and Allergies Allergies Allergy/AdvReac Type Severity Reaction Status Date / Time lisinopril Allergy Angioedema Verified 01/19/19 11:28 Penicillins Allergy Unknown Verified 06/15/18 07:41 Home Medications Medication Instructions Recorded Confirmed Last Taken Type NIFEdipine XL [Procardia Xl] 90 mg PO QDAY #30 tablet 06/25/17 05/09/19 05/08/19 12:00 Rx hydrALAZINE [Apresoline TAB] 100 mg PO TID #90 tab 06/25/17 05/09/19 05/08/19 12:00 Rx Cinacalcet HCl [Sensipar] 60 mg PO DAILY 03/21/18 05/09/19 04/12/19 12:00 History Furosemide [Lasix TAB] 80 mg PO DAILY 03/21/18 05/09/19 05/08/19 09:00 History Metoprolol Tartrate 100 mg PO BID 03/21/18 05/09/19 05/08/19 09:00 History Sevelamer Carbonate [Renvela] 800 mg PO TID 03/21/18 05/09/19 05/05/19 12:00 History Sodium Bicarbonate 650 mg PO BID 03/21/18 05/09/19 Unknown History glipiZIDE [Glipizide] 10 mg PO BID 03/21/18 05/09/19 05/05/19 09:00 History Active Meds: Active Medications Acetaminophen (Tylenol) 650 mg PO Q4H PRN PRN Reason: Pain MILD(1-3)/Fever >100.5/CONTE Albuterol (Proventil) 2.5 mg IH Q3HRT PRN PRN Reason: Shortness Of Breath Dextrose (D50w (25gm) Syringe) 50 ml IV PRN PRN PRN Reason: Hypoglycemia Heparin Sodium (Porcine) (Heparin) 5,000 unit SUB-Q Q12HR [facility] Insulin Human Lispro (Humalog) 0 unit SUB-Q ACHS LAURA; Protocol Ondansetron HCl (Zofran) 4 mg IV Q6H PRN PRN Reason: Nausea And Vomiting Sodium Chloride (Sodium Chloride Flush Syringe 10 Ml) 10 ml IV BID LAURA Sodium Chloride (Sodium Chloride Flush Syringe 10 Ml) 10 ml IV PRN PRN PRN Reason: LINE FLUSH Review of Systems All systems: negative Cardiovascular: shortness of breath, dyspnea on exertion Respiratory: shortness of breath, dyspnea on exertion Exam - Physical Exam Narrative exam: Physical exam General appearance: Present: No acute distress, alert and oriented 3, chronically ill appearing, pleasant, adult -[place] male - EENT Eyes: Present: PERRL, EOM intact, ENT: hearing intact, normal dentition - Neck Neck: Present: supple, normal ROM - Respiratory Respiratory effort: Non-labored Respiratory: Bibasilar crackles - Cardiovascular Heart rate: 65 (bpm) Rhythm: SR Heart Sounds: Present: S1, S2 - Extremities Extremities: no ischemia, pulses intact bilateral lower extremities trace edema - Peripheral Assessment Peripheral Pulses: within normal limits - Abdominal General gastrointestinal: soft, non-tender, normal bowel sounds - Integumentary Integumentary: Present: warm, dry, - Musculoskeletal Musculoskeletal: Able to move all extremities -Neurological Neurological: CN II-XII grossly intact - Psychiatric Psychiatric: cooperative - Constitutional Vitals: Temp Pulse Resp BP Pulse Ox 98.2 F 89 14 133/72 100 05/08/19 18:15 05/08/19 21:16 05/08/19 21:16 05/08/19 21:16 05/08/19 21:16 Results - Labs CBC & Chem 7: 05/08/19 18:31 05/08/19 18:31 Labs: Laboratory Last Values WBC 9.2 K/mm3 (4.5-11.0) 05/08/19 18:31 RBC 2.46 M/mm3 (3.65-5.03) L 05/08/19 18:31 Hgb 7.4 gm/dl (11.8-15.2) L 05/08/19 18:31 Hct 22.5 % (35.5-45.6) L 05/08/19 18:31 MCV 91 fl (84-94) 05/08/19 18:31 MCH 30 pg (28-32) 05/08/19 18:31 MCHC 33 % (32-34) 05/08/19 18:31 RDW 16.8 % (13.2-15.2) H 05/08/19 18:31 Plt Count 372 K/mm3 (140-440) 05/08/19 18:31 Lymph % (Auto) 14.9 % (13.4-35.0) 05/08/19 18:31 [place] % (Auto) 6.3 % (0.0-7.3) 05/08/19 18:31 Eos % (Auto) 2.0 % (0.0-4.3) 05/08/19 18:31 Baso % (Auto) 0.4 % (0.0-1.8) 05/08/19 18:31 Lymph # 1.4 K/mm3 (1.2-5.4) 05/08/19 18:31 [place] # 0.6 K/mm3 (0.0-0.8) 05/08/19 18:31 Eos # 0.2 K/mm3 (0.0-0.4) 05/08/19 18:31 Baso # 0.0 K/mm3 (0.0-0.1) 05/08/19 18: Seg Neutrophils % 76.4 % (40.0-70.0) H 05/08/19 18:31 Seg Neutrophils # 7.1 K/mm3 (1.8-7.7) 05/08/19 18:31 Sodium 139 mmol/L (137-145) 05/08/19 18:31 Potassium 5.6 mmol/L (3.6-5.0) H 05/08/19 18:31 Chloride 95.7 mmol/L (98-107) L 05/08/19 18:31 Carbon Dioxide 22 mmol/L (22-30) 05/08/19 18:31 Anion Gap 27 mmol/L 05/08/19 18:31 BUN 63 mg/dL (9-20) H 05/08/19 18:31 Creatinine 9.8 mg/dL (0.8-1.5) H 05/08/19 18:31 Estimated GFR 7 ml/min 05/08/19 18:31 BUN/Creatinine Ratio 6 % 05/08/19 18:31 Glucose 179 mg/dL (75-100) H 05/08/19 18:31 Calcium 10.4 mg/dL (8.4-10.2) H 05/08/19 18:31 Total Bilirubin 0.60 mg/dL (0.1-1.2) 05/08/19 18:31 AST 7 units/L (5-40) 05/08/19 18:31 ALT 7 units/L (7-56) 05/08/19 18:31 Alkaline Phosphatase 104 units/L (35-129) 05/08/19 18:31 Total Protein 8.4 g/dL (6.3-8.2) H 05/08/19 18:31 Albumin 3.8 g/dL (3.9-5) L 05/08/19 18:31 Albumin/Globulin Ratio 0.8 % 05/08/19 18:31 - Imaging and Cardiology Imaging and Cardiology: CXR: FINDINGS: Support devices: None. Heart: Mild cardiomegaly. Lungs/Pleura: Mild/moderate interstitial/airspace disease greatest the mid and lower zones. No significant pleural effusion. IMPRESSION: Edema versus atypical infection. Edema is favored. Assessment and Plan Assessment and plan: 63-year-old -[place] male with history of CHF with EF 55%, hypertension, DM 2, DVT, ESRD on HD, chronic anemia, chronic respiratory failure on home O2 who presents to the [facility] ED with complaints of shortness of breath which caused him to miss dialysis today. Fluid Overload -CXR revealed Edema -Last dialyzed on05/05/19 -Increase SOB Acute on chronic hypoxic respiratory failure -Likely secondary to fluid overload -Baseline home oxygen requirements 2L prn; patient does not have portable oxygen -Currently on 3L continuous supplemental oxygen -Albuterol when necessary -Monitor saturations -Continue supplemental oxygen wean as tolerated ESRD on HD -M/W/F -Last dialyzed on05/05/19 -Nephrology following with plans for HD in am -Hyperkalemia -Potassium on admission 5.6 -Received Kayexalate in the ED -Continue to monitor electrolytes HTN -Monitor BP -Resume home hypertensive meds to optimize BP DM2 -BG on admission 179 -Resume glipizide -SSI coverage prn Anemia of chronic disease -Hgb on admission 7.4 -no s/s of active bleeding -Monitor Hgb -Transfuse prn CHF -EF 55% seen on [facility] 11/2017 -Resume home meds DVT PPX -on Heparin Advance Directives: No VTE prophylaxis?: Chemical Plan of care discussed with patient/family: Yes <ZEYNEP HUBER - Last Filed: 05/09/19 04:36> History of Present Illness Date of admission: 05/08/19 22:55 Medications and Allergies Active Meds: Active Medications Acetaminophen (Tylenol) 650 mg PO Q4H PRN PRN Reason: Pain MILD(1-3)/Fever >100.5/CONTE Albuterol (Proventil) 2.5 mg IH Q3HRT PRN PRN Reason: Shortness Of Breath Dextrose (D50w (25gm) Syringe) 50 ml IV PRN PRN PRN Reason: Hypoglycemia Furosemide (Lasix) 80 mg PO DAILY [facility] Glipizide (Glucotrol) 10 mg PO BIDDIAB [facility] Heparin Sodium (Porcine) (Heparin) 5,000 unit SUB-Q Q12HR [facility] Hydralazine HCl (Apresoline) 100 mg PO TID [facility] Insulin Human Lispro (Humalog) 0 unit SUB-Q ACHS [facility]; Protocol Methyldopa (Aldomet) 500 mg PO BID [facility] Metoprolol Tartrate (Lopressor) 100 mg PO BID [facility] Multivit/Ca Carb/B Cmplx/FA/Prenat (Renal Caps) 1 cap PO QDAY [facility] Nifedipine (Procardia Xl) 90 mg PO QDAY [facility] Ondansetron HCl (Zofran) 4 mg IV Q6H PRN PRN Reason: Nausea And Vomiting Pantoprazole Sodium (Protonix) 40 mg PO DAILY [facility] Sevelamer Carbonate (Renvela) 800 mg PO TIDWM [facility] Sodium Bicarbonate (Sodium Bicarbonate) 650 mg PO BID [facility] Sodium Chloride (Sodium Chloride Flush Syringe 10 Ml) 10 ml IV BID [facility]URA Sodium Chloride (Sodium Chloride Flush Syringe 10 Ml) 10 ml IV PRN PRN PRN Reason: LINE FLUSH Exam - Constitutional Vitals: Temp Pulse Resp BP Pulse Ox 98.8 F 73 20 132/66 92 05/09/19 04:15 05/09/19 04:14 05/09/19 04:14 05/09/19 04:14 05/09/19 04:14 Results - Labs CBC & Chem 7: 05/08/19 18:31 05/08/19 18:31 Labs: Laboratory Last Values WBC 9.2 K/mm3 (4.5-11.0) 05/08/19 18:31 RBC 2.46 M/mm3 (3.65-5.03) L 05/08/19 18:31 Hgb 7.4 gm/dl (11.8-15.2) L 05/08/19 18:31 Hct 22.5 % (35.5-45.6) L 05/08/19 18:31 MCV 91 fl (84-94) 05/08/19 18:31 MCH 30 pg (28-32) 05/08/19 18:31 MCHC 33 % (32-34) 05/08/19 18:31 RDW 16.8 % (13.2-15.2) H 05/08/19 18:31 Plt Count 372 K/mm3 (140-440) 05/08/19 18:31 Lymph % (Auto) 14.9 % (13.4-35.0) 05/08/19 18:31 [place] % (Auto) 6.3 % (0.0-7.3) 05/08/19 18:31 Eos % (Auto) 2.0 % (0.0-4.3) 05/08/19 18:31 Baso % (Auto) 0.4 % (0.0-1.8) 05/08/19 18:31 Lymph # 1.4 K/mm3 (1.2-5.4) 05/08/19 18:31 [place] # 0.6 K/mm3 (0.0-0.8) 05/08/19 18:31 Eos # 0.2 K/mm3 (0.0-0.4) 05/08/19 18:31 Baso # 0.0 K/mm3 (0.0-0.1) 05/08/19 18:31 Seg Neutrophils % 76.4 % (40.0-70.0) H 05/08/19 18:31 Seg Neutrophils # 7.1 K/mm3 (1.8-7.7) 05/08/19 18:31 Sodium 139 mmol/L (137-145) 05/08/19 18:31 Potassium 5.6 mmol/L (3.6-5.0) H 05/08/19 18:31 Chloride 95.7 mmol/L (98-107) L 05/08/19 18:31 Carbon Dioxide 22 mmol/L (22-30) 05/08/19 18:31 Anion Gap 27 mmol/L 05/08/19 18:31 BUN 63 mg/dL (9-20) H 05/08/19 18:31 Creatinine 9.8 mg/dL (0.8-1.5) H 05/08/19 18:31 Estimated GFR 7 ml/min 05/08/19 18:31 BUN/Creatinine Ratio 6 % 05/08/19 18:31 Glucose 179 mg/dL (75-100) H 05/08/19 18:31 POC Glucose 148 (70-105) H 05/09/19 00:39 Calcium 10.4 mg/dL (8.4-10.2) H 05/08/19 18:31 Total Bilirubin 0.60 mg/dL (0.1-1.2) 05/08/19 18:31 AST 7 units/L (5-40) 05/08/19 18:31 ALT 7 units/L (7-56) 05/08/19 18:31 Alkaline Phosphatase 104 units/L (35-129) 05/08/19 18:31 Total Protein 8.4 g/dL (6.3-8.2) H 05/08/19 18:31 Albumin 3.8 g/dL (3.9-5) L 05/08/19 18:31 Albumin/Globulin Ratio 0.8 % 05/08/19 18:31 Assessment and Plan Assessment and plan: I personally discussed the pt with the [employer], I agree with the above assessment and plan
[2019-05-09 05:23] LABS: BUN/Creatinine Ratio 6; Blood Urea Nitrogen 69 mg/dL (9-20); Calcium 9.9 mg/dL (8.4-10.2)
[2019-05-09 07:32] LABS: Basophils % (Auto) 0.5 % (0.0-1.8); Eosinophils # (Auto) 0.2 K/mm3 (0.0-0.4); Eosinophils % (Auto) 2.6 % (0.0-4.3); Lymphocytes % (Auto) 11.4 % (13.4-35.0); Mean Corpuscular HGB Conc 33 % (32-34); Mean Corpuscular Volume 90 fl (84-94); Monocytes # (Auto) 0.8 K/mm3 (0.0-0.8); Platelet Count 342 K/mm3 (140-440); Red Blood Count 2.33 M/mm3 (3.65-5.03); Red Cell Distribution Width 16.3 % (13.2-15.2)
[2019-05-09] MEDS ORDERED: EPOETIN ALFA 20,000 UNIT/1 ML INJ SUB-Q PRN (08:07)
[2019-05-09] MEDS ORDERED: SODIUM CHLORIDE 0.9% 100 ML IV PRN (08:07)
[2019-05-09] MEDS: INSULIN LISPRO 100 UNIT/ML SUB-Q SCH ×3 (08:20→17:14)
[2019-05-09] MEDS: hydrALAZINE 100 MG TAB PO SCH ×3 (08:26→22:07)
[2019-05-09] MEDS: SEVELAMER CARBONATE 800 MG TAB PO SCH ×3 (08:26→18:27)
[2019-05-09] MEDS: glipiZIDE 10 MG TAB PO SCH ×3 (08:26→18:21)
[2019-05-09] MEDS ORDERED: CYCLOBENZAPRINE 10 MG TAB PO PRN (08:44)
--- NOTE | 2019-05-09 09:58 | Consultation ---
History of Present Illness - Reason for Consult Consult date: 05/09/19 end stage renal disease, hyperkalemia - History of Present Illness The patient is a 63 YO male with history significant for DM 2, Hypertension, CHF with EF 55%, DVT, ESRD on HD (MWF), Anemia and chronic respiratory failure on home O2 who presents to the [facility] ED with complaints of shortness of breath. The pt developed sob as he was getting ready to go to dialysis yesterday. Patient states that he does not have portable O2. The pt came to the ED instead of going to HD. He was last dialyzed on 05/05/19. His breathing is some what better now. Labs significant for K 5.6 and Hb is 7 today. Nephrology was consulted to manage ESRD and hyperkalemia. Past History Past Medical History: anemia, diabetes, dialysis (M/W/F), DVT, ESRD, heart failure (EF 55%), hypertension, other (chronic respiratory failure) Past Surgical History: Other (Cataract surgery, AV Fistula) Social history: Lives alone, other (former smoker) Family history: no significant family history Medications and Allergies Allergies Allergy/AdvReac Type Severity Reaction Status Date / Time lisinopril Allergy Angioedema Verified 01/19/19 11:28 Penicillins Allergy Unknown Verified 06/15/18 07:41 Home Medications Medication Instructions Recorded Confirmed Last Taken Type NIFEdipine XL [Procardia Xl] 90 mg PO QDAY #30 tablet 06/25/17 05/09/19 05/08/19 12:00 Rx hydrALAZINE [Apresoline TAB] 100 mg PO TID #90 tab 06/25/17 05/09/19 05/08/19 12:00 Rx Cinacalcet HCl [Sensipar] 60 mg PO DAILY 03/21/18 05/09/19 04/12/19 12:00 History Furosemide [Lasix TAB] 80 mg PO DAILY 03/21/18 05/09/19 05/08/19 09:00 History Metoprolol Tartrate 100 mg PO BID 03/21/18 05/09/19 05/08/19 09:00 History Sevelamer Carbonate [Renvela] 800 mg PO TID 03/21/18 05/09/19 05/05/19 12:00 History Sodium Bicarbonate 650 mg PO BID 03/21/18 05/09/19 Unknown History glipiZIDE [Glipizide] 10 mg PO BID 03/21/18 05/09/19 05/05/19 09:00 History Active Meds: Active Medications Acetaminophen (Tylenol) 650 mg PO Q4H PRN PRN Reason: Pain MILD(1-3)/Fever >100.5/CONTE Albuterol (Proventil) 2.5 mg IH Q3HRT PRN PRN Reason: Shortness Of Breath Cyclobenzaprine HCl (Flexeril) 10 mg PO Q8H PRN PRN Reason: Muscle Spasm Dextrose (D50w (25gm) Syringe) 50 ml IV PRN PRN PRN Reason: Hypoglycemia Epoetin Tommy (Procrit) 20,000 unit SUB-Q HELDER PRN PRN Reason: hemodialysis Furosemide (Lasix) 80 mg PO DAILY [facility] Glipizide (Glucotrol) 10 mg PO BIDDIAB [facility] Last Admin: 05/09/19 08:29 Dose: Not Given Documented by: Heparin Sodium (Porcine) (Heparin) 5,000 unit SUB-Q Q12HR [facility] Hydralazine HCl (Apresoline) 100 mg PO TID [facility] Last Admin: 05/09/19 08:26 Dose: 100 mg Documented by: Sodium Chloride (Nacl 0.9%) 100 mls @ 999 mls/hr IV HELDER PRN PRN Reason: Hypotension Insulin Human Lispro (Humalog) 0 unit SUB-Q ACHS [facility]; Protocol Last Admin: 05/09/19 08:20 Dose: 4 unit Documented by: Methyldopa (Aldomet) 500 mg PO BID [facility] Metoprolol Tartrate (Lopressor) 100 mg PO BID [facility] Multivit/Ca Carb/B Cmplx/FA/Prenat (Renal Caps) 1 cap PO QDAY [facility] Nifedipine (Procardia Xl) 90 mg PO QDAY [facility] Ondansetron HCl (Zofran) 4 mg IV Q6H PRN PRN Reason: Nausea And Vomiting Pantoprazole Sodium (Protonix) 40 mg PO DAILY [facility] Sevelamer Carbonate (Renvela) 800 mg PO TIDWM [facility] Last Admin: 05/09/19 08:26 Dose: 800 mg Documented by: Sodium Bicarbonate (Sodium Bicarbonate) 650 mg PO BID [facility] Sodium Chloride (Sodium Chloride Flush Syringe 10 Ml) 10 ml IV BID [facility] Sodium Chloride (Sodium Chloride Flush Syringe 10 Ml) 10 ml IV PRN PRN PRN Reason: LINE FLUSH Review of Systems Constitutional: no weight loss, no weight gain, no fever, no chills, no anorexia, no fatigue, no weakness Cardiovascular: orthopnea, shortness of breath, dyspnea on exertion, high blood pressure, no chest pain, no palpitations, no edema, no syncope, no lightheadedness, no leg edema Respiratory: shortness of breath, dyspnea on exertion, home oxygen, no cough Gastrointestinal: no abdominal pain, no nausea, no vomiting, no diarrhea Genitourinary Male: no dysuria, no hematuria Musculoskeletal: no muscle weakness, no muscle cramps Integumentary: no redness, no wounds, no jaundice Neurological: no syncope, no convulsions, no aphasia, no change in speech, no change in mentation, no confusion, no double vision, no loss of vision Exam - Vital Signs Vital signs: Vital Signs Temp Pulse Resp BP Pulse Ox 98.2 F 65 22 119/63 98 05/08/19 18:15 05/08/19 18:15 05/08/19 18:15 05/08/19 18:15 05/08/19 18:15 - General Appearance General appearance: well-developed, well-nourished, appears stated age, other (not in distress, L arm AVF) EENT: ATNC, PERRL, mucous membranes moist, hearing intact, vision intact Neck: Present: neck supple, trachea midline Respiratory: Rales Heart: regular, S1S2, no murmurs Gastrointestinal: Present: normoactive bowel sounds. Absent: tenderness, distended Integumentary: no rash, warm and dry Neurologic: no focal deficit, no asterixis, alert and oriented x3 Musculoskeletal: Present: other (no edema) Results - Lab Results 05/09/19 06:46 05/09/19 03:57 Most recent lab results Calcium 9.9 mg/dL (8.4-10.2) 05/09/19 03:57 Assessment and Plan 1. ESRD: Continue hemodialysis three times a week, MWF schedule. HD today since he missed treatment yesterday. 2. Acute on chronic respiratory failure: Likely due to volume overload. UF with HD today. 3. FEN: Hyperkalemia, improved. HD today. Monitor lytes. 4. Anemia: Epogen with HD. 5. HTN: Monitor BP. 6. DM-2. 7. HFpEF.
[2019-05-09] MEDS ORDERED: NON-FORMULARY EACH (Furosemide [Lasix Tab] 80 MG) PO SCH (10:00)
[2019-05-09] MEDS ORDERED: VIT B COMPLEX AND C PO SCH (10:00)
[2019-05-09] MEDS ORDERED: NON-FORMULARY EACH (Esomeprazole Magnesium [Nexium] 40 MG) PO SCH (10:00)
[2019-05-09] MEDS ORDERED: FOLIC ACID PO SCH (10:00)
[2019-05-09] MEDS ORDERED: hydrALAZINE 20 MG/1 ML INJ IV PRN (11:59)
[2019-05-09] MEDS ORDERED: SODIUM CHLORIDE*PRIMING MACHINE ONLY FOR DIALYSIS MC ONE (12:34)
--- NOTE | 2019-05-09 13:36 | Progress Note ---
Assessment and Plan Fluid Overload -CXR revealed Edema -Last dialyzed on05/05/19 -Increase SOB Acute on chronic hypoxic respiratory failure -Likely secondary to fluid overload -Baseline home oxygen requirements 2L prn; patient does not have portable oxygen -Currently on 3L continuous supplemental oxygen -Albuterol when necessary -Monitor saturations -Continue supplemental oxygen wean as tolerated ESRD on HD -M/W/F -Last dialyzed on05/05/19 -Nephrology following with plans for HD in am -Hyperkalemia -Potassium on admission 5.6 -Received Kayexalate in the ED -Continue to monitor electrolytes HTN -Monitor BP -Resume home hypertensive meds to optimize BP DM2 -BG on admission 179 -Resume glipizide -SSI coverage prn Anemia of chronic disease -Hgb on admission 7.4 -no s/s of active bleeding -Monitor Hgb -Transfuse prn CHF -EF 55% seen on [facility] 11/2017 -Resume home meds DVT PPX -on Heparin Brief history: 63-year-old -[place]yr[place] male with history of CHF with EF 55%, hypertension, DM 2, DVT, ESRD on HD, chronic anemia, chronic respiratory failure on home O2 who presents to the [facility] ED with complaints of shortness of breath which caused him to miss dialysis today. Physical exam: GENERAL: well-developed and well-nourished lying on bed appeared to be in no discomfort. HEENT: Normocephalic. Atraumatic. No conjunctival congestion or icterus. Patient has moist mucous membranes. NECK: Supple. Trachea midline. CHEST/LUNGS: Clear to auscultated bilaterally, breathing nonlabored. No wheezes crackles or rhonchi. HEART/CARDIOVASCULAR: Regular in rate and rhythm. S1 and S2 positive. ABDOMEN: Abdomen is soft, nontender. Patient has normal bowel sounds. SKIN: There is no rash. Warm and dry. NEURO: No focal motor deficit. Follows command. MUSCULOSKELETAL: No joint effusion or tenderness. EXTRIMITY: No edema, no cyanosis or clubbing. PSYCH: Cooperative. Subjective Date of service: 05/09/19 Interval history: Patient seen and examined. Medical records and medication list reviewed. No acute event overnight noted by the RN. Patient getting HD now, Discussed plan of care at bedside with patient. Objective - Constitutional Vitals: Vital Signs - 12hr 05/09/19 05/09/19 05/09/19 04:14 04:15 09:40 Temperature 98.8 F 98.8 F Pulse Rate 73 86 Respiratory 20 18 Rate Blood Pressure 132/66 162/97 O2 Sat by Pulse 92 Oximetry 05/09/19 05/09/19 05/09/19 10:00 10:15 10:30 Temperature Pulse Rate 83 84 84 Respiratory Rate Blood Pressure 171/82 176/83 183/82 O2 Sat by Pulse Oximetry 05/09/19 05/09/19 05/09/19 10:45 11:00 11:15 Temperature Pulse Rate 83 82 82 Respiratory Rate Blood Pressure 180/89 177/84 186/86 O2 Sat by Pulse Oximetry 05/09/19 05/09/19 05/09/19 11:30 11:45 12:00 Temperature Pulse Rate 81 81 83 Respiratory Rate Blood Pressure 183/84 186/91 186/88 O2 Sat by Pulse Oximetry 05/09/19 05/09/19 05/09/19 12:15 12:30 13:11 Temperature Pulse Rate 82 81 79 Respiratory Rate Blood Pressure 195/86 189/87 189/86 O2 Sat by Pulse Oximetry - Labs CBC & Chem 7: 05/09/19 06:46 05/09/19 03:57 Labs: Abnormal lab results 05/08/19 05/08/19 05/09/19 Range/Units 18:31 18:31 00:39 RBC 2.46 L (3.65-5.03) M/mm3 Hgb 7.4 L (11.8-15.2) gm/dl Hct 22.5 L (35.5-45.6) % RDW 16.8 H (13.2-15.2) % Lymph % (Auto) (13.4-35.0) % Elk % (Auto) (0.0-7.3) % Lymph # (1.2-5.4) K/mm3 Seg Neutrophils % 76.4 H (40.0-70.0) % Potassium 5.6 H (3.6-5.0) mmol/L Chloride 95.7 L (98-107) mmol/L BUN 63 H (9-20) mg/dL Creatinine 9.8 H (0.8-1.5) mg/dL Glucose 179 H (75-100) mg/dL POC Glucose 148 H (70-105) Calcium 10.4 H (8.4-10.2) mg/dL Total Protein 8.4 H (6.3-8.2) g/dL Albumin 3.8 L (3.9-5) g/dL 05/09/19 05/09/19 05/09/19 Range/Units 03:57 06:46 07:37 RBC 2.33 L (3.65-5.03) M/mm3 Hgb 7.0 L (11.8-15.2) gm/dl Hct 21.0 L (35.5-45.6) % RDW 16.3 H (13.2-15.2) % Lymph % (Auto) 11.4 L (13.4-35.0) % Elk % (Auto) 9.0 H (0.0-7.3) % Lymph # 1.0 L (1.2-5.4) K/mm3 Seg Neutrophils % 76.5 H (40.0-70.0) % Potassium (3.6-5.0) mmol/L Chloride (98-107) mmol/L BUN 69 H (9-20) mg/dL Creatinine 10.8 H (0.8-1.5) mg/dL Glucose 242 H (75-100) mg/dL POC Glucose 280 H (70-105) Calcium (8.4-10.2) mg/dL Total Protein (6.3-8.2) g/dL Albumin (3.9-5) g/dL
--- NOTE | 2019-05-09 14:26 | Discharge Summary ---
Providers - Providers Date of Admission: 05/08/19 22:55 Date of discharge: 05/09/19 Attending physician: MARTINE BETTENCOURT 05/08/19 22:17 Consult to Physician [CONS] Urgent Comment: Consulting Provider: MELISSA URIAS Physician Instructions: Reason For Exam: hyperkalemia, ESRD Primary care physician: DAMON VILLEGAS Hospitalization Condition: Fair Pertinent studies: CXR: Pulmonary edema Hospital course: Brief history: 63-year-old -Tongan male with history of CHF with EF 55%, hypertension, DM 2, DVT, ESRD on HD, chronic anemia, chronic respiratory failure on home O2 who presents to the [facility] ED with complaints of shortness of breath which caused him to miss dialysis. He presented to ER and admitted for further Mx. Nephrology consulted, patient had HD in the hospital. BP monitored and resumed home meds. He was discharged after HD and after portable O2 arrangement. Discharge diagnosis and Mx: Fluid Overload -CXR revealed Edema -Last dialyzed on05/05/19 -symptom improved after HD Acute on chronic hypoxic respiratory failure -Likely secondary to fluid overload -Baseline home oxygen requirements 2L prn; patient does not have portable oxygen -Currently on 3L continuous supplemental oxygen -ordered Albuterol when necessary - he was at his baseline on discharge ESRD on HD -M/W/F -Last dialyzed on05/05/19 -Nephrology following, s/p HD in hospital - will resume outpt HD as scheduled -Hyperkalemia -Potassium on admission 5.6 -Received Kayexalate in the ED and s/p HD HTN, uncontrolled -Monitored BP -Resumed home hypertensive meds to optimize BP DM2 -BG on admission 179 -Resumed glipizide and placed on SSI coverage prn Anemia of chronic disease -Hgb on admission 7.4 -no s/s of active bleeding CHF -EF 55% seen on [facility] 11/2017 -Resumed home meds DVT PPX -on Heparin Physical exam: GENERAL: well-developed elderly white male lying on bed appeared to be in no discomfort. HEENT: Normocephalic. Atraumatic. No conjunctival congestion or icterus. Patient has moist mucous membranes. NECK: Supple. Trachea midline. CHEST/LUNGS: few crackles auscultated bilaterally, breathing nonlabored. HEART/CARDIOVASCULAR: Regular in rate and rhythm. S1 and S2 positive. ABDOMEN: Abdomen is soft, nontender. Patient has normal bowel sounds. SKIN: There is no rash. Warm and dry. NEURO: No focal motor deficit. Follows command. MUSCULOSKELETAL: No joint effusion or tenderness. EXTRIMITY: No edema, no cyanosis or clubbing. PSYCH: Cooperative. Disposition: - TO HOME OR SELFCARE Time spent for discharge: 34 minutes Core Measure Documentation - Palliative Care Palliative Care/ Comfort Measures: Not Applicable - Core Measures Any of the following diagnoses?: history only Exam - Constitutional Vitals: Temp Pulse Resp BP Pulse Ox 98.8 F 84 18 158/83 92 05/09/19 13:30 05/09/19 13:30 05/09/19 13:30 05/09/19 13:30 05/09/19 04:14 Plan Activity: fall precautions Weight Bearing Status: Non-Weight Bearing Diet: renal Special Instructions: restrict fluid intake to (1.2l daily), record daily weights, record daily BP diary Follow up with: PRIMARY CARE, [Referring] - 3-5 Days
[2019-05-09] MEDS: HEPARIN 5,000 UNIT/1 ML VIAL SUB-Q SCH ×2 (14:32→22:07)
[2019-05-09] MEDS: NIFEdipine XL 90 MG TAB PO SCH (14:36)
[2019-05-09] MEDS: FOLIC ACID/VIT B COMP W-C 1 MG (RENAL CAPS) PO SCH (14:36)
[2019-05-09] MEDS: FUROSEMIDE 40 MG TAB PO SCH (14:37)
[2019-05-09] MEDS: METOPROLOL TARTRATE 100 MG TAB PO SCH ×2 (14:38→22:07)
[2019-05-09] MEDS: SODIUM BICARBONATE 650 MG TAB PO SCH ×2 (14:43→22:06)
[2019-05-09] MEDS: PANTOPRAZOLE 40 MG TAB PO SCH (14:43)
[2019-05-09] MEDS: METHYLDOPA 500 MG TAB PO SCH ×2 (14:44→22:06)
[2019-05-09] MEDS: ACETAMINOPHEN 325 MG TAB PO PRN (17:14)
[2019-05-09 21:22] LABS: Hepatitis B Surface Antigen Non-Reactive (Negative); Hepatitis C Virus Antibody Reactive (NonReactive)
[2019-05-09] MEDS: DOCUSATE SODIUM 100 MG CAP PO SCH (22:07)
[2019-05-10] MEDS: INSULIN LISPRO 100 UNIT/ML SUB-Q SCH ×2 (00:05→08:39)
[2019-05-10] MEDS: ACETAMINOPHEN 325 MG TAB PO PRN ×2 (01:30→06:22)
[2019-05-10] MEDS ORDERED: SODIUM CHLORIDE 0.9% 100 ML IV PRN (07:07)
[2019-05-10] MEDS: hydrALAZINE 100 MG TAB PO SCH (08:38)
[2019-05-10] MEDS: glipiZIDE 10 MG TAB PO SCH (08:38)
[2019-05-10] MEDS: SEVELAMER CARBONATE 800 MG TAB PO SCH (08:42)
[2019-05-10] MEDS: METOPROLOL TARTRATE 100 MG TAB PO SCH (09:28)
[2019-05-10] MEDS: FUROSEMIDE 40 MG TAB PO SCH (09:28)
[2019-05-10] MEDS: FOLIC ACID/VIT B COMP W-C 1 MG (RENAL CAPS) PO SCH (09:28)
[2019-05-10] MEDS: SODIUM BICARBONATE 650 MG TAB PO SCH (09:28)
[2019-05-10] MEDS: DOCUSATE SODIUM 100 MG CAP PO SCH (09:28)
[2019-05-10] MEDS: PANTOPRAZOLE 40 MG TAB PO SCH (09:28)
[2019-05-10] MEDS: METHYLDOPA 500 MG TAB PO SCH (09:29)
[2019-05-10] MEDS: NIFEdipine XL 90 MG TAB PO SCH (09:29)
[2019-05-10] MEDS: HEPARIN 5,000 UNIT/1 ML VIAL SUB-Q SCH (09:30)
[2019-05-10 09:39] VITALS: BP 105/50
--- NOTE | 2019-05-10 10:43 | Progress Note ---
Assessment and Plan 1. ESRD: Continue hemodialysis three times a week, MWF schedule. S/p HD yesterday. has arranged transportation from the opital to hemodialysis unit today. 2. Acute on chronic respiratory failure: Likely due to volume overload. Improved. 3. FEN: Hyperkalemia, improved. S/p HD yesterday. Monitor lytes. 4. Anemia: Epogen with HD. 5. HTN: Monitor BP. 6. DM-2. 7. HFpEF. 8. Hepatitis C. Examination: General appearance: well-developed, well-nourished, appears stated age, not in distress EENT: ATNC, FAUSTO, mucous membranes moist, hearing intact, vision intact Neck: neck supple, trachea midline Respiratory: ctab Heart: regular, S1S2, no murmur Gastrointestinal: normoactive bowel sounds, not tender Integumentary: no rash, warm and dry Neurologic: no focal deficit, no asterixis, alert and oriented x3 Musculoskeletal: no edema Hemodialysis access: L arm AVF Subjective Date of service: 05/10/19 Interval history: Patient was seen and examined at the bedside. Objective - Vital Signs Vital signs: Vital Signs - 12hr 05/09/19 05/09/19 05/09/19 23:00 23:15 23:16 Temperature 98.5 F Pulse Rate 73 72 70 Respiratory 20 Rate Blood Pressure 111/50 O2 Sat by Pulse 97 Oximetry 05/10/19 05/10/19 05/10/19 03:41 06:22 07:00 Temperature 97.9 F Pulse Rate 61 60 Respiratory 16 20 Rate Blood Pressure 116/51 O2 Sat by Pulse 94 Oximetry 05/10/19 05/10/19 09:28 09:29 Temperature Pulse Rate 62 60 Respiratory Rate Blood Pressure 105/50 105/50 O2 Sat by Pulse Oximetry - Lab 05/09/19 06:46 05/09/19 03:57 Most recent lab results Calcium 9.9 mg/dL (8.4-10.2) 05/09/19 03:57 Medications & Allergies - Medications Allergies/Adverse Reactions: Allergies lisinopril Allergy (Verified 01/19/19 11:28) Angioedema Penicillins Allergy (Verified 06/15/18 07:41) Unknown unknown childhood allergy Home Medications: Home Medications Medication Instructions Recorded Confirmed Last Taken Type NIFEdipine XL [Procardia Xl] 90 mg PO QDAY #30 tablet 06/25/17 05/10/19 05/10/19 Rx Cinacalcet HCl [Sensipar] 60 mg PO DAILY 03/21/18 05/10/19 05/10/19 History Furosemide [Lasix TAB] 80 mg PO DAILY 03/21/18 05/10/19 05/10/19 History Metoprolol Tartrate 100 mg PO BID 03/21/18 05/10/19 05/10/19 History Sevelamer Carbonate [Renvela] 800 mg PO TID 03/21/18 05/10/19 05/10/19 History Sodium Bicarbonate 650 mg PO BID 03/21/18 05/10/19 05/10/19 History glipiZIDE [Glipizide] 10 mg PO BID 03/21/18 05/10/19 05/10/19 History Esomeprazole Magnesium [NexIUM] 40 mg PO QDAY 05/10/19 05/10/19 05/10/19 History Topiramate [Topamax] 50 mg PO BID 05/10/19 05/10/19 05/09/19 History hydrALAZINE [Apresoline TAB] 100 mg PO BID 05/10/19 05/10/19 05/10/19 History Active Medications: Generic Name Dose Route Start Last Admin Trade Name Freq PRN Reason Stop Dose Admin Acetaminophen 650 mg 05/08/19 22:55 05/10/19 06:22 Tylenol PO 650 mg Q4H PRN Administration Pain MILD(1-3)/Fever >100.5/CONTE Albuterol 2.5 mg 05/08/19 22:55 Proventil IH Q3HRT PRN Shortness Of Breath Cyclobenzaprine HCl 10 mg 05/09/19 08:44 05/09/19 14:40 Flexeril PO 10 mg Q8H PRN Administration Muscle Spasm Dextrose 50 ml 05/08/19 22:55 D50w (25gm) Syringe IV PRN PRN Hypoglycemia Docusate Sodium 100 mg 05/09/19 22:00 05/10/19 09:28 Colace PO 100 mg BID LAURA Administration Epoetin Tommy 20,000 unit 05/09/19 08:07 05/09/19 13:30 Procrit SUB-Q 20,000 unit HELDER PRN Administration hemodialysis Furosemide 80 mg 05/09/19 10:00 05/10/19 09:28 Lasix PO 80 mg DAILY LAURA Administration Glipizide 10 mg 05/09/19 08:00 05/10/19 08:38 Glucotrol PO 10 mg BIDDIAB LAURA Administration Heparin Sodium (Porcine) 5,000 unit 05/09/19 10:00 05/10/19 09:30 Heparin SUB-Q 5,000 unit Q12HR LAURA Administration Hydralazine HCl 100 mg 05/09/19 08:00 05/10/19 08:38 Apresoline PO 100 mg TID LAURA Administration Hydralazine HCl 5 mg 05/09/19 11:59 05/09/19 13:11 Apresoline IV 5 mg Q30MIN PRN Administration Hypertension Sodium Chloride 100 mls @ 999 mls/hr 05/10/19 07:07 Nacl 0.9% IV HELDER PRN Hypotension Insulin Human Lispro 0 unit 05/09/19 07:30 05/10/19 08:39 Humalog SUB-Q Not Given ACHS [facility] Protocol Methyldopa 500 mg 05/09/19 10:00 05/10/19 09:29 Aldomet PO Not Given BID [facility] Metoprolol Tartrate 100 mg 05/09/19 10:00 05/10/19 09:28 Lopressor PO 100 mg BID [facility] Administration Multivit/Ca Carb/B Cmplx/FA/Prenat 1 cap 05/09/19 10:00 05/10/19 09:28 Renal Caps PO 1 cap QDAY LAURA Administration Nifedipine 90 mg 05/09/19 10:00 05/10/19 09:29 Procardia Xl PO Not Given QDAY [facility] Ondansetron HCl 4 mg 05/08/19 22:55 Zofran IV Q6H PRN Nausea And Vomiting Pantoprazole Sodium 40 mg 05/09/19 10:00 05/10/19 09:28 Protonix PO 40 mg DAILY LAURA Administration Sevelamer Carbonate 800 mg 05/09/19 08:00 05/10/19 08:42 Renvela PO 800 mg TIDWM LAURA Administration Sodium Bicarbonate 650 mg 05/09/19 10:00 05/10/19 09:28 Sodium Bicarbonate PO 650 mg BID LAURA Administration Sodium Chloride 10 ml 05/09/19 10:00 05/10/19 09:40 Sodium Chloride Flush Syringe 10 Ml IV Not Given BID LAURA Sodium Chloride 10 ml 05/08/19 22:55 Sodium Chloride Flush Syringe 10 Ml IV PRN PRN LINE FLUSH
--- NOTE | 2019-05-10 11:23 | Progress Note ---
Assessment and Plan Acute on chronic hypoxic respiratory failure -Likely secondary to fluid overload -Baseline home oxygen requirements 2L prn; patient does not have portable oxygen -Currently on 3L continuous supplemental oxygen -Albuterol when necessary -Monitor saturations -Continue supplemental oxygen wean as tolerated - should resolve with HD Fluid Overload -CXR revealed Edema -Last dialyzed on05/05/19 -planned for HD today ESRD on HD -M/W/F -Last dialyzed on05/05/19 -Nephrology following with plans for HD today -Hyperkalemia, resolved -Potassium on admission 5.6 -Received Kayexalate in the ED -Continue to monitor electrolytes HTN -Monitor BP -Resumed home hypertensive meds to optimize BP DM2 -BG on admission 179 -Resume glipizide -SSI coverage prn Anemia of chronic disease -Hgb on admission 7.4 -no s/s of active bleeding -Monitor Hgb -Transfuse prn CHF -EF 55% seen on [facility] 11/2017 -Resume home meds DVT PPX -on Heparin Disposition: d/c after Hd if BP stable and need portable O2 on discharge Brief History: 63-year-old -Macedonian male with history of CHF with EF 55%, hypertension, DM 2, DVT, ESRD on HD, chronic anemia, chronic respiratory failure on home O2 who presents to the [facility] ED with complaints of shortness of breath which caused him to miss dialysis today. Subjective Date of service: 05/09/19 Interval history: Patient seen and examined. Medical records and medication list reviewed. No acute event overnight noted by the RN. Patient denies any chest pain, have difficulty breathing with exertion. Patient is tolerating diet. Discussed plan of care at bedside with patient. Objective - Exam Narrative Exam: GENERAL: well-developed elderly white male lying on bed appeared to be in no discomfort. HEENT: Normocephalic. Atraumatic. No conjunctival congestion or icterus. Patient has moist mucous membranes. NECK: Supple. Trachea midline. CHEST/LUNGS: few crackles auscultated bilaterally, breathing nonlabored. HEART/CARDIOVASCULAR: Regular in rate and rhythm. S1 and S2 positive. ABDOMEN: Abdomen is soft, nontender. Patient has normal bowel sounds. SKIN: There is no rash. Warm and dry. NEURO: No focal motor deficit. Follows command. MUSCULOSKELETAL: No joint effusion or tenderness. EXTRIMITY: No edema, no cyanosis or clubbing. PSYCH: Cooperative. - Constitutional Vitals: Vital Signs - 12hr 05/10/19 05/10/19 05/10/19 03:41 06:22 07:00 Temperature 97.9 F Pulse Rate 61 60 Respiratory 16 20 Rate Blood Pressure 116/51 O2 Sat by Pulse 94 Oximetry 05/10/19 05/10/19 09:28 09:29 Temperature Pulse Rate 62 60 Respiratory Rate Blood Pressure 105/50 105/50 O2 Sat by Pulse Oximetry - Labs CBC & Chem 7: 05/09/19 06:46 05/09/19 03:57 Labs: Abnormal lab results 05/09/19 05/09/19 05/09/19 Range/Units 08:42 16:23 21:00 POC Glucose 221 H 201 H (70-105) Hepatitis C Antibody Reactive A (NonReactive) 05/10/19 Range/Units 08:43 POC Glucose 119 H (70-105) Hepatitis C Antibody (NonReactive)
== END 2019-05-10 10:45 | disposition home or self-care (01) ==
LOC: ED 18:06 → 4A 22:55 → INTOOBSV 22:55
PROVIDERS: ADMIT Internal Medicine; ATTEND Internal Medicine
DX: E87.70 Fluid overload, unspecified (principal); J96.21 Acute and chronic respiratory failure with hypoxia; D64.9 Anemia, unspecified; I13.2 Hypertensive heart and chronic kidney disease with heart failure and with stage 5 chronic kidney disease, or end stage renal disease; I50.9 Heart failure, unspecified; N18.6 End stage renal disease; E87.5 Hyperkalemia; E11.22 Type 2 diabetes mellitus with diabetic chronic kidney disease; Z98.49 Cataract extraction status, unspecified eye; Z87.891 Personal history of nicotine dependence; Z86.718 Personal history of other venous thrombosis and embolism
CPT/HCPCS: 36415; 71046; 80048; 80053; 80074; 82962; 85025; 93005; 93010; 96372; 96374; 96375; 99284; G0378; J0360; J0610; J0885; J1644; J7030; G0257; J1815; J2405

== ENCOUNTER 2019-05-10 11:09 | Emergency (ER) | payer MEDICARE, OTHER ==
--- NOTE | 2019-05-10 11:48 | Emergency Department Report ---
- General Chief complaint: Weakness Stated complaint: HYPOTENSION Time Seen by Provider: 05/10/19 11:37 Source: EMS Mode of arrival: Stretcher Limitations: Altered Mental Status - History of Present Illness Initial comments: 63-year-old male with a past medical history diabetes, O2 dependence, end-stage renal disease on dialysis, hypertension, CHF with EF of 55% presents to the [facility] complains of generalized weakness and hypotension. Patient was just discharged from the floor. He was admitted for dialysis noncompliance and received dialysis this morning. EMS checked his blood pressure and his systolic was 76 and patient complaining of lightheadedness and weakness and therefore they brought him to the ER for evaluation. Patient has eyes closed and he is slow to answer questions. He states he feels weak. Patient states he received the muscle relaxer earlier today. Pt's nurse Karen contacted the nurse on the floor and patient just received his Lopressor and Tylenol today for back pain. This did not receive a muscle relaxant. Patient also received dialysis this morning prior to discharge. Patient is O2 dependent and takes 2 L at home. - after speaking to dr poon (at 1:08am), pt did not receive dialysis today prior to d/c. He received dialysis yesterday and was d/earlene with plan to go to dialysis today. - Related Data Home Medications Medication Instructions Recorded Confirmed Last Taken Cinacalcet HCl [Sensipar] 60 mg PO DAILY 03/21/18 05/10/19 05/10/19 Furosemide [Lasix TAB] 80 mg PO DAILY 03/21/18 05/10/19 05/10/19 Metoprolol Tartrate 100 mg PO BID 03/21/18 05/10/19 05/10/19 Sevelamer Carbonate [Renvela] 800 mg PO TID 03/21/18 05/10/19 05/10/19 Sodium Bicarbonate 650 mg PO BID 03/21/18 05/10/19 05/10/19 glipiZIDE [Glipizide] 10 mg PO BID 03/21/18 05/10/19 05/10/19 Esomeprazole Magnesium [NexIUM] 40 mg PO QDAY 05/10/19 05/10/19 05/10/19 Topiramate [Topamax] 50 mg PO BID 05/10/19 05/10/19 05/09/19 hydrALAZINE [Apresoline TAB] 100 mg PO BID 05/10/19 05/10/19 05/10/19 Previous Rx's Medication Instructions Recorded Last Taken Type NIFEdipine XL [Procardia Xl] 90 mg PO QDAY #30 tablet 06/25/17 05/10/19 Rx Allergies Allergy/AdvReac Type Severity Reaction Status Date / Time lisinopril Allergy Angioedema Verified 01/19/19 11:28 Penicillins Allergy Unknown Verified 06/15/18 07:41 ED Review of Systems ROS: Stated complaint: HYPOTENSION Other details as noted in HPI Comment: All other systems reviewed and negative ED Past Medical Hx - Past Medical History Hx Hypertension: Yes Hx Heart Attack/AMI: No Hx Congestive Heart Failure: Yes (CHF with preserved ejection fraction 55%) Hx Diabetes: Yes Hx Deep Vein Thrombosis: Yes Hx Renal Disease: Yes (CKD, Dialysis M-W-F) Hx Asthma: No Hx COPD: No Hx HIV: No Additional medical history: Anemia - Surgical History Additional Surgical History: Cataract surgery - Social History Smoking Status: Unknown if ever smoked - Medications Home Medications: Home Medications Medication Instructions Recorded Confirmed Last Taken Type NIFEdipine XL [Procardia Xl] 90 mg PO QDAY #30 tablet 06/25/17 05/10/19 05/10/19 Rx Cinacalcet HCl [Sensipar] 60 mg PO DAILY 03/21/18 05/10/19 05/10/19 History Furosemide [Lasix TAB] 80 mg PO DAILY 03/21/18 05/10/19 05/10/19 History Metoprolol Tartrate 100 mg PO BID 03/21/18 05/10/19 05/10/19 History Sevelamer Carbonate [Renvela] 800 mg PO TID 03/21/18 05/10/19 05/10/19 History Sodium Bicarbonate 650 mg PO BID 03/21/18 05/10/19 05/10/19 History glipiZIDE [Glipizide] 10 mg PO BID 03/21/18 05/10/19 05/10/19 History Esomeprazole Magnesium [NexIUM] 40 mg PO QDAY 05/10/19 05/10/19 05/10/19 History Topiramate [Topamax] 50 mg PO BID 05/10/19 05/10/19 05/09/19 History hydrALAZINE [Apresoline TAB] 100 mg PO BID 05/10/19 05/10/19 05/10/19 History ED Physical Exam - General Limitations: Altered Mental Status - Other Other exam information: Gen.: No acute distress Head: Atraumatic Eyes: Normal appearance ENT: Moist mucous membranes Neck: Normal appearance, no posterior midline tenderness, no meningismus Chest: Clear to auscultation bilaterally Cardiovascular: Regular rate and rhythm, systolic murmur Abdomen: Normal appearance, soft, nontender, no rebound or guarding, normal bowel sounds Rectal: guaic neg light brown stool Back: Normal appearance, nontender Extremity: Full range of motion, normal appearance Neuro: Alert and oriented 3, clear speech, no focal motor or sensory deficit speaking slowly when answering questions but no dysarthria Psychiatric: Appropriate Skin: No rash ED Course Vital Signs 05/10/19 05/10/19 12:40 12:41 Temperature 97.4 F L Pulse Rate 58 L Respiratory 18 18 Rate Blood Pressure 110/54 [Right] O2 Sat by Pulse 99 99 Oximetry - Consultations Consultation #1: 05/10/19 13:09 case d/w Dr Poon (nephro) recommends admission. Will plan to tx with erythropoietin. ED Medical Decision Making - Lab Data Result diagrams: 05/10/19 12:10 05/10/19 12:09 Lab Results 05/10/19 05/10/19 05/10/19 Range/Units 11:59 12:09 12:10 WBC 6.3 (4.5-11.0) K/mm3 RBC 1.92 L (3.65-5.03) M/mm3 Hgb 5.7 L* (11.8-15.2) gm/dl Hct 17.1 L* (35.5-45.6) % MCV 89 (84-94) fl MCH 30 (28-32) pg MCHC 33 (32-34) % RDW 16.1 H (13.2-15.2) % Plt Count 363 (140-440) K/mm3 Lymph % (Auto) 23.6 (13.4-35.0) % [place] % (Auto) 8.0 H (0.0-7.3) % Eos % (Auto) 4.9 H (0.0-4.3) % Baso % (Auto) 0.6 (0.0-1.8) % Lymph # 1.5 (1.2-5.4) K/mm3 [place] # 0.5 (0.0-0.8) K/mm3 Eos # 0.3 (0.0-0.4) K/mm3 Baso # 0.0 (0.0-0.1) K/mm3 Seg Neutrophils % 62.9 (40.0-70.0) % Seg Neutrophils # 4.0 (1.8-7.7) K/mm3 POC ABG pH (7.35-7.45) POC ABG pCO2 (35-45) POC ABG pO2 (80-105) POC ABG HCO3 (22-26 mml/L) POC ABG Total CO2 (23-27mmol/L) POC ABG O2 Sat POC ABG Base Excess ((-2) - (+3)mmol/L) FiO2 % Sodium 139 (137-145) mmol/L Potassium 3.9 (3.6-5.0) mmol/L Chloride 96.2 L (98-107) mmol/L Carbon Dioxide 27 (22-30) mmol/L Anion Gap 20 mmol/L BUN 41 H (9-20) mg/dL Creatinine 7.3 H (0.8-1.5) mg/dL Estimated GFR 9 ml/min BUN/Creatinine Ratio 6 % Glucose 187 H (75-100) mg/dL POC Glucose 208 H (70-105) Calcium 10.0 (8.4-10.2) mg/dL 05/10/19 Range/Units 12:15 WBC (4.5-11.0) K/mm3 RBC (3.65-5.03) M/mm3 Hgb (11.8-15.2) gm/dl Hct (35.5-45.6) % MCV (84-94) fl MCH (28-32) pg MCHC (32-34) % RDW (13.2-15.2) % Plt Count (140-440) K/mm3 Lymph % (Auto) (13.4-35.0) % [place] % (Auto) (0.0-7.3) % Eos % (Auto) (0.0-4.3) % Baso % (Auto) (0.0-1.8) % Lymph # (1.2-5.4) K/mm3 [place] # (0.0-0.8) K/mm3 Eos # (0.0-0.4) K/mm3 Baso # (0.0-0.1) K/mm3 Seg Neutrophils % (40.0-70.0) % Seg Neutrophils # (1.8-7.7) K/mm3 POC ABG pH 7.468 H (7.35-7.45) POC ABG pCO2 44.8 (35-45) POC ABG pO2 101 (80-105) POC ABG HCO3 32.5 (22-26 mml/L) POC ABG Total CO2 34 (23-27mmol/L) POC ABG O2 Sat 98 POC ABG Base Excess 9 ((-2) - (+3)mmol/L) FiO2 28 % Sodium (137-145) mmol/L Potassium (3.6-5.0) mmol/L Chloride (98-107) mmol/L Carbon Dioxide (22-30) mmol/L Anion Gap mmol/L BUN (9-20) mg/dL Creatinine (0.8-1.5) mg/dL Estimated GFR ml/min BUN/Creatinine Ratio % Glucose (75-100) mg/dL POC Glucose (70-105) Calcium (8.4-10.2) mg/dL - EKG Data -: EKG Interpreted by Me EKG shows normal: ST-T waves (lvh, lat t wave inv) Rate: bradycardia - Medical Decision Making Patient was just discharged today from the floor after receiving dialysis today after a period of noncompliance requiring hospital admission for volume overload. EMS picked up patient and check blood pressure with a systolic that was in the 70s complaining of weakness and therefore patient brought to the ER without ever making it home. Vital signs and orthostatics had a drop in sbp with standing (but less then 10 points). Repeat blood work reveals significant anemia with a hemoglobin of 5.7 down from 7.0. Pt states he is [employer] and will not receive blood. 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 Patient will be readmitted - Differential Diagnosis anemia, vomited depletion, CO2 retention, encephalopathy Critical Care Time: No Critical care attestation.: If time is entered above; I have spent that time in minutes in the direct care of this critically ill patient, excluding procedure time. ED Disposition Clinical Impression: ESRD (end stage renal disease) on dialysis, Severe anemia, Generalized weakness Disposition: -09 OP ADMIT IP TO THIS HOSP Is pt being admited?: Yes Condition: Stable Time of Disposition: 13:17 (Dr Leach/hosp)
[2019-05-10 12:44] LABS: Basophils % (Auto) 0.6 % (0.0-1.8); Eosinophils # (Auto) 0.3 K/mm3 (0.0-0.4); Eosinophils % (Auto) 4.9 % (0.0-4.3); Lymphocytes # (Auto) 1.5 K/mm3 (1.2-5.4); Lymphocytes % (Auto) 23.6 % (13.4-35.0); Mean Corpuscular HGB Conc 33 % (32-34); Mean Corpuscular Volume 89 fl (84-94); Monocytes # (Auto) 0.5 K/mm3 (0.0-0.8); Platelet Count 363 K/mm3 (140-440); Red Blood Count 1.92 M/mm3 (3.65-5.03); Red Cell Distribution Width 16.1 % (13.2-15.2)
[2019-05-10 12:46] VITALS: BP 110/54
[2019-05-10 12:50] LABS: Hematocrit 17.1 % (35.5-45.6); Hemoglobin 5.7 gm/dl (11.8-15.2)
[2019-05-10] MEDS ORDERED: SODIUM CHLORIDE 0.9% 500 ML 500 ML IV ONE (13:43)
--- NOTE | 2019-05-10 14:09 | Event Note ---
Date: 05/10/19 63 YO Male with ESRD complained of weakness after discharge from [facility]. Pt found to be hypotensive S/P Pain medication administration. Pt treated with IVF resuscitation therapy in ED with resolution of symptoms. Pt medically optimized and back to usual state of health. Pt discharged home and instructed to proceed to dialysis unit for scheduled dialysis. Gen.: No acute distress Head: Atraumatic Eyes: Normal appearance ENT: Moist mucous membranes Neck: Normal appearance, no posterior midline tenderness, no meningismus Chest: Clear to auscultation bilaterally Cardiovascular: Regular rate and rhythm, systolic murmur Abdomen: Normal appearance, soft, nontender, no rebound or guarding, normal bowel sounds Rectal: guaic neg light brown stool Back: Normal appearance, nontender Extremity: Full range of motion, normal appearance Neuro: Alert and oriented 3, clear speech, no focal motor or sensory deficit speaking slowly when answering questions but no dysarthria Psychiatric: Appropriate Skin: No rash
== END 2019-05-10 18:03 | disposition admitted as inpatient to this hospital (09) ==
LOC: ED 11:09
DX: I13.2 Hypertensive heart and chronic kidney disease with heart failure and with stage 5 chronic kidney disease, or end stage renal disease (principal); I50.9 Heart failure, unspecified; E11.22 Type 2 diabetes mellitus with diabetic chronic kidney disease; N18.6 End stage renal disease; D64.9 Anemia, unspecified; R42 Dizziness and giddiness; Z99.2 Dependence on renal dialysis; Z86.718 Personal history of other venous thrombosis and embolism; Z79.899 Other long term (current) drug therapy; Z88.0 Allergy status to penicillin; Z88.5 Allergy status to narcotic agent
CPT/HCPCS: 36415; 80048; 82271; 82803; 82962; 85025; 93005; 93010; 96360; 99284; J7040